=== PATIENT | female | born 1970 | race Hispanic/Latino ===

== ENCOUNTER 2020-08-09 17:11 | Inpatient (IN) | payer OTHER ==
--- NOTE | 2020-08-09 17:21 | Event Note ---
ED Screening Note Date of service: 08/09/20 Time: 17:18 ED Screening Note: Pt c/o CP and SOB x 1 month, suddenly worsening today] hx of CHF and DM-not currently on meds bilateral lower extermity edema noted on exam This initial assessment/diagnostic orders/clinical plan/treatment(s) is/are sub ject to change based on patients health status, clinical progression and re- assessment by fellow clinical providers in the ED. Further treatment and workup at subsequent clinical providers discretion. Patient/guardian urged not to elope from the ED as their condition may be serious if not clinically assessed and managed. Initial orders include: labs CXR ekg glucose
[2020-08-09 17:56] LABS: Basophils % (Auto) 0.5 % (0.0-1.8); Eosinophils % (Auto) 0.1 % (0.0-4.3); Lymphocytes # (Auto) 1.5 K/mm3 (1.2-5.4); Lymphocytes % (Auto) 18.1 % (13.4-35.0); Mean Corpuscular HGB Conc 30 % (30-34); Mean Corpuscular Volume 78 fl (79-97); Monocytes # (Auto) 0.4 K/mm3 (0.0-0.8); Monocytes % (Auto) 4.4 % (0.0-7.3); Platelet Count 428 K/mm3 (140-440); Red Blood Count 4.93 M/mm3 (3.65-5.03); Red Cell Distribution Width 19.4 % (13.2-15.2)
[2020-08-09 18:03] LABS: Hemoglobin 11.5 gm/dl (10.1-14.3)
[2020-08-09 18:04] LABS: Hematocrit 38.5 % (30.3-42.9)
[2020-08-09 18:17] LABS: Blood Urea Nitrogen 8 mg/dL (7-17); Calcium 8.4 mg/dL (8.4-10.2); Hemolysis Index 6
[2020-08-09 18:18] LABS: BUN/Creatinine Ratio 20
[2020-08-09 18:19] LABS: Albumin 3.3 g/dL (3.9-5); Bilirubin,Direct 1.3 mg/dL (0-0.2)
[2020-08-09 18:35] LABS: Chol/HDL Ratio 2.07 %; HDL Cholesterol 91 mg/dL (40-59); LDL Cholesterol,Direct 104 mg/dL (50-130)
--- NOTE | 2020-08-09 19:01 | XRay Report ---
CHEST 2 VIEWS INDICATION / CLINICAL INFORMATION: chest pain, SOB. COMPARISON: 10/24/2015 FINDINGS: SUPPORT DEVICES: None. HEART / MEDIASTINUM: No significant abnormality. LUNGS / PLEURA: There is airspace opacity noted in the lung bases right greater than left. There are bilateral pleural effusions right greater than left. No pneumothorax. ADDITIONAL FINDINGS: No significant additional findings. IMPRESSION: 1. There are bilateral pleural effusions right greater than left. There are airspace opacities in the lung bases which likely represents atelectasis in setting of effusions. Signer Name: Diomedes Laura MD Signed: 08/09/2020 6:56 PM Workstation Name: [id number]
--- NOTE | 2020-08-09 20:53 | Emergency Department Report ---
ED Chest Pain HPI - General Chief Complaint: Chest Pain Stated Complaint: CHEST PAIN/COUGHING PUI?: No Time Seen by Provider: 08/09/20 20:44 Source: patient, RN/MD, RN notes reviewed Mode of arrival: Ambulatory Limitations: No Limitations - History of Present Illness Initial Comments: Patient is a 50-year-old female that presents emergency room with complaints of chest pain or shortness of breath. Patient states her symptoms started yesterday at noon. Patient states her symptoms are worsening. Patient states her pain is nonradiating. Patient denies nausea vomiting. Patient states that her shortness of breath and chest pain are better with rest. Patient states that her chest pain or shortness of breath are worse with exertion. Patient complains of dyspnea on exertion. Patient states she has a history of congestiv e heart rate, diabetes hypertension. Patient states she is always retaining fluids. Patient states she is compliant with her medications. Patient denies recent travel. Patient denies recent international travel. Patient denies exposure to the novel coronavirus. Patient denies sick contacts. Patient denies fever and chills. Patient denies cough. Patient denies diarrhea. Patient denies coming in contact with anybody with symptoms of the novel coronavirus. Complaint: chest pain -: Sudden, days(s) Onset: during rest Pain Location: substernal, left chest Pain Radiation: none Severity: severe Severity scale (0 -10): 10 Quality: sharp Consistency: constant Improves With: rest Worsens With: exertion re: dyspnea, sense of impending doom. denies: nausea, vomting, diaphoresis Other Symptoms: leg swelling. denies: cough, fever, syncope, rash, acid taste in mouth, palpitations, burping Treatments Prior to Arrival: aspirin Aspirin use within the Past 7 Days: (1) Yes - Related Data On Oral Contraceptives: No Previous Rx's Medication Instructions Recorded Last Taken Type Aspirin [Aspirin BABY CHEW TAB] 81 mg PO QDAY #30 tab.chew 10/24/15 Unknown Rx Insulin Glargine [Lantus VIAL] 10 units SUB-Q QHS #10 ml 10/24/15 Unknown Rx Insulin Glulisine [Apidra] 6 units SUB-Q AC #10 ml 10/24/15 Unknown Rx Nitroglycerin [Nitrostat] 0.4 mg SL .Q5MIN PRN #30 tablet 10/24/15 Unknown Rx Spironolactone [Aldactone] 50 mg PO QDAY #30 tablet 10/24/15 Unknown Rx Warfarin [Coumadin] 10 mg PO DAILY@1700 #10 tablet 10/24/15 Unknown Rx carvediloL [Coreg] 3.125 mg PO BID #60 tablet 10/24/15 Unknown Rx clonazePAM [KlonoPIN] 0.25 mg PO TID #30 tablet 10/24/15 Unknown Rx lisinopriL [Zestril TAB] 2.5 mg PO QDAY #30 tablet 10/24/15 Unknown Rx metOLazone [Zaroxolyn] 5 mg PO QDAY #30 tablet 10/24/15 Unknown Rx traZODone [Desyrel] 50 mg PO QHS #30 tablet 10/24/15 Unknown Rx Allergies Allergy/AdvReac Type Severity Reaction Status Date / Time zolpidem [From Ambien] Allergy Unknown Verified 08/09/20 17:15 Heart Score - HEART Score History: Highly suspicious EKG: Non-specific Age: 45-65 Risk factors: > 3 risk factors or hx of atherosclerotic disease Troponin: > 3x normal limit HEART Score: 8 ED Review of Systems ROS: Stated complaint: CHEST PAIN/COUGHING Other details as noted in HPI Constitutional: denies: chills, fever Eyes: denies: eye pain, eye discharge, vision change ENT: denies: ear pain, throat pain Respiratory: see HPI, shortness of breath, SOB with exertion, SOB at rest. denies: cough, wheezing Cardiovascular: as per HPI, chest pain, dyspnea on exertion. denies: palpitations Endocrine: no symptoms reported Gastrointestinal: denies: abdominal pain, nausea, diarrhea Genitourinary: denies: urgency, dysuria, discharge Musculoskeletal: denies: back pain, joint swelling, arthralgia Skin: denies: rash, lesions Neurological: denies: headache, weakness, paresthesias Psychiatric: denies: anxiety, depression Hematological/Lymphatic: denies: easy bleeding, easy bruising ED Past Medical Hx - Past Medical History Previous Medical History?: Yes Hx Hypertension: Yes Hx Congestive Heart Failure: Yes Hx Diabetes: Yes - Surgical History Past Surgical History?: Yes Additional Surgical History: - Family History Family history: no significant - Social History Smoking Status: Never Smoker Substance Use Type: None - Medications Home Medications: Home Medications Medication Instructions Recorded Confirmed Last Taken Type Aspirin [Aspirin BABY CHEW TAB] 81 mg PO QDAY #30 tab.chew 10/24/15 Unknown Rx Insulin Glargine [Lantus VIAL] 10 units SUB-Q QHS #10 ml 10/24/15 Unknown Rx Insulin Glulisine [Apidra] 6 units SUB-Q AC #10 ml 10/24/15 Unknown Rx Nitroglycerin [Nitrostat] 0.4 mg SL .Q5MIN PRN #30 tablet 10/24/15 Unknown Rx Spironolactone [Aldactone] 50 mg PO QDAY #30 tablet 10/24/15 Unknown Rx Warfarin [Coumadin] 10 mg PO DAILY@1700 #10 tablet 10/24/15 Unknown Rx carvediloL [Coreg] 3.125 mg PO BID #60 tablet 10/24/15 Unknown Rx clonazePAM [KlonoPIN] 0.25 mg PO TID #30 tablet 10/24/15 Unknown Rx lisinopriL [Zestril TAB] 2.5 mg PO QDAY #30 tablet 10/24/15 Unknown Rx metOLazone [Zaroxolyn] 5 mg PO QDAY #30 tablet 10/24/15 Unknown Rx traZODone [Desyrel] 50 mg PO QHS #30 tablet 10/24/15 Unknown Rx ED Physical Exam - General Limitations: No Limitations General appearance: alert, in no apparent distress - Head Head exam: Present: atraumatic, normocephalic - Eye Eye exam: Present: normal appearance - ENT ENT exam: Present: mucous membranes moist - Neck Neck exam: Present: normal inspection - Respiratory Respiratory exam: Present: respiratory distress, decreased breath sounds. Absent: chest wall tenderness - Cardiovascular Cardiovascular Exam: Present: regular rate, normal rhythm. Absent: systolic murmur, diastolic murmur, rubs, gallop - GI/Abdominal GI/Abdominal exam: Present: soft, normal bowel sounds - Extremities Exam Extremities exam: Present: normal inspection - Back Exam Back exam: Present: normal inspection - Neurological Exam Neurological exam: Present: alert, oriented X3 - Psychiatric Psychiatric exam: Present: normal affect, normal mood - Skin Skin exam: Present: warm, dry, intact, normal color. Absent: rash ED Course Vital Signs 03/10/21 03/10/21 03/10/21 17:27 21:17 21:20 Temperature 98.9 F Pulse Rate 118 H 116 H Respiratory 24 15 21 Rate Blood Pressure 155/118 O2 Sat by Pulse 99 100 Oximetry 08/09/20 08/09/20 08/09/20 21:31 22:01 22:45 Temperature Pulse Rate 112 H 112 H 126 H Respiratory 15 18 40 H Rate Blood Pressure 155/112 150/110 151/109 O2 Sat by Pulse 100 99 99 Oximetry 08/09/20 08/09/20 08/09/20 23:01 23:15 23:31 Temperature Pulse Rate 113 H 111 H 109 H Respiratory 19 19 19 Rate Blood Pressure 149/112 149/109 149/108 O2 Sat by Pulse 98 99 99 Oximetry 08/09/20 08/09/20 08/10/20 23:45 23:59 00:01 Temperature Pulse Rate 119 H 113 H 111 H Respiratory 17 15 17 Rate Blood Pressure 160/114 148/107 148/107 O2 Sat by Pulse 98 100 100 Oximetry 08/10/20 08/10/20 00:15 00:31 Temperature Pulse Rate 107 H 113 H Respiratory 15 17 Rate Blood Pressure 152/111 147/106 O2 Sat by Pulse 100 99 Oximetry - Reevaluation(s) Reevaluation #1: Patient valuation done. Patient is having increased work of breathing. Patient was placed on oxygen. Patient's troponins are elevated. Patient will placed on a heparin protocol. 08/09/20 20:55 Reevaluation #2: I discussed all results with patient. I discussed plan of care with patient. Patient agrees with plan of care and admission. Patient to be admitted to the hospitalist service. 08/09/20 22:02 - Consultations Consultation #1: Hospitalist consulted for admission. Hospitalist to admit patient. 08/09/20 21:50 ED Medical Decision Making - Lab Data Result diagrams: 08/09/20 17:28 08/09/20 17:28 - EKG Data -: EKG Interpreted by Me EKG shows normal: sinus rhythm, axis, intervals, QRS complexes, ST-T waves Rate: tachycardia - Radiology Data Radiology results: report reviewed, image reviewed interpreted by me: Chest x-ray: CHF changes and effusions, no pneumothorax, no foreign body, no osseous findings, CHEST 2 VIEWS INDICATION / CLINICAL INFORMATION: chest pain, SOB. COMPARISON: 10/24/2015 FINDINGS: SUPPORT DEVICES: None. HEART / MEDIASTINUM: No significant abnormality. LUNGS / PLEURA: There is airspace opacity noted in the lung bases right greater than left. There are bilateral pleural effusions right greater than left. No pneumothorax. ADDITIONAL FINDINGS: No significant additional findings. IMPRESSION: 1. There are bilateral pleural effusions right greater than left. There are airspace opacities in the lung bases which likely represents atelectasis in setting of effusions. - Medical Decision Making Patient is a 50-year-old female that presents emergency room with complaints of chest pain shortness of breath. Patient has a history of CHF, diabetes and hypertension. Patient's heart score is elevated. Patient found to have elevated troponin. Immediately after initial valuation, the patient was placed on a heparin protocol to include heparin bolus and heparin drip. Patient also found to have an elevated BNP and the patient was given IV Lasix. Patient's chest x-ray shows CHF changes. Patient had labs which were essentially unremarkable except for abnormal LFTs. Patient also complained of lower extremity swelling and anasarca. Patient EKG was negative for acute findings. I personally reviewed the EKG and the chest x-ray. Patient admitted to the hospitalist service and into the ICU. Critical care time documented due to the multiple reassessments, prolonged time at the bedside, interpretation of diagnostics and labs. - Differential Diagnosis Chest pain, shortness of breath, ACS, NSTEMI, CHF exacerbation Critical Care Time: Yes Critical care time in (mins) excluding proc time.: 35 Critical care attestation.: If time is entered above; I have spent that time in minutes in the direct care of this critically ill patient, excluding procedure time. Critical Care Time: 35 minutes ED Disposition Clinical Impression: NSTEMI (non-ST elevated myocardial infarction), Elevated troponin I level, Elevated brain natriuretic peptide (BNP) level, SOB (shortness of breath), Anasarca CHF (congestive heart failure) Qualifiers: Heart failure type: unspecified Heart failure chronicity: acute on chronic Qualified Code(s): I50.9 - Heart failure, unspecified Chest pain Qualifiers: Chest pain type: unspecified Qualified Code(s): R07.9 - Chest pain, unspecified Disposition: DC-09 OP ADMIT IP TO THIS HOSP Is pt being admited?: Yes Does the pt Need Aspirin: No Condition: Critical Time of Disposition: 22:05
[2020-08-09] MEDS ORDERED: HEPARIN 10,000 UNITS/10 ML VIAL IV ONE (21:08)
[2020-08-09 21:30] LABS: INR 1.14 (0.87-1.13)
[2020-08-09 21:31] LABS: Partial Thromboplastin Time 27.4 Sec. (24.2-36.6)
[2020-08-09] MEDS ORDERED: ASPIRIN 325 MG TAB PO ONE (21:36)
[2020-08-09] MEDS ORDERED: FUROSEMIDE 100 MG/10 ML INJ IV ONE (21:49)
[2020-08-09] MEDS: HEPARIN/ 0.45% NACL DRIP 25,000 UNIT/500 ML BAG IV SCH (21:50)
[2020-08-09 21:56] LABS: Bilirubin,Urine NEG (Negative); Blood,Urine NEG (Negative); Color,Urine Yellow (Yellow)
[2020-08-10] MEDS ORDERED: MAGNESIUM HYDROXIDE (MOM) ORAL LIQD UDC PO PRN (00:43)
[2020-08-10] MEDS ORDERED: ONDANSETRON 4 MG/2 ML INJ IV PRN (00:43)
[2020-08-10] MEDS ORDERED: NITROGLYCERIN 0.4 MG TAB SUBL SL PRN (00:43)
[2020-08-10] MEDS ORDERED: ACETAMINOPHEN 325 MG TAB PO PRN ×2 (00:43)
[2020-08-10] MEDS ORDERED: DEXTROSE 50% IN WATER (25GM) 50 ML SYRINGE IV PRN (00:43)
--- NOTE | 2020-08-10 00:58 | History and Physical Report ---
History of Present Illness Date of examination: 08/09/20 Date of admission: 08/09/20 22:02 Chief complaint: Chest Pain History of present illness: 50-year-old female with known history of hypertension, diabetes mellitus and CHF presenting to the emergency room today complaining of chest pain and shortness of breath. Symptoms onset started sometime this afternoon and seems to be getting worse. Chest pain is nonradiating. Symptoms are better with resting gets worse upon exertion. She denies any cough, no fever or chills, no nausea vomiting, no abdominal pain, no diarrhea. Patient denies any recent travel and no sick contacts. Denies any contact with anyone with COVID-19. Work-up in the emergency room today, chest x-ray shows pleural effusion. Troponin slightly elevated. Patient is being admitted for NSTEMI and CHF. Past History Past Medical History: diabetes, heart failure, hypertension Past Surgical History: Social history: no significant social history Family history: CAD (Family history of heart disease) Medications and Allergies Allergies Allergy/AdvReac Type Severity Reaction Status Date / Time zolpidem [From Ambien] Allergy Unknown Verified 08/09/20 17:15 Home Medications Medication Instructions Recorded Confirmed Last Taken Type Aspirin [Aspirin BABY CHEW TAB] 81 mg PO QDAY #30 tab.chew 10/24/15 Unknown Rx Insulin Glargine [Lantus VIAL] 10 units SUB-Q QHS #10 ml 10/24/15 Unknown Rx Insulin Glulisine [Apidra] 6 units SUB-Q AC #10 ml 10/24/15 Unknown Rx Nitroglycerin [Nitrostat] 0.4 mg SL .Q5MIN PRN #30 tablet 10/24/15 Unknown Rx Spironolactone [Aldactone] 50 mg PO QDAY #30 tablet 10/24/15 Unknown Rx Warfarin [Coumadin] 10 mg PO DAILY@1700 #10 tablet 10/24/15 Unknown Rx carvediloL [Coreg] 3.125 mg PO BID #60 tablet 10/24/15 Unknown Rx clonazePAM [KlonoPIN] 0.25 mg PO TID #30 tablet 10/24/15 Unknown Rx lisinopriL [Zestril TAB] 2.5 mg PO QDAY #30 tablet 10/24/15 Unknown Rx metOLazone [Zaroxolyn] 5 mg PO QDAY #30 tablet 10/24/15 Unknown Rx traZODone [Desyrel] 50 mg PO QHS #30 tablet 10/24/15 Unknown Rx Active Meds: Active Medications Acetaminophen (Acetaminophen 325 Mg Tab) 650 mg PO Q4H PRN PRN Reason: Pain MILD(1-3)/Fever >100.5/[place] Acetaminophen (Acetaminophen 325 Mg Tab) 650 mg PO Q6H PRN PRN Reason: Pain, Mild (1-3) Aspirin (Aspirin Ec 325 Mg Tab) 325 mg PO QDAY FESTUS Dextrose (Dextrose 50% In Water (25gm) 50 Ml Syringe) 50 ml IV Q30MIN PRN; Protocol PRN Reason: Hypoglycemia Dextrose (Dextrose 50% In Water (25gm) 50 Ml Syringe) 50 ml IV Q30MIN PRN; Protocol PRN Reason: Hypoglycemia Furosemide (Furosemide 40 Mg/4 Ml Inj) 40 mg IV BID@0600,1800 [facility] Heparin Sodium/Sodium Chloride (Heparin/ 0.45% Nacl-25,000 Unit/500 Ml) 25,000 unit in 500 mls @ 20 mls/hr IV TITRATE FESTUS; Protocol Last Admin: 08/09/20 21:50 Dose: 1,000 units/hr, 20 mls/hr Documented by: Insulin Human Lispro (Insulin Lispro 100 Unit/Ml) 0 unit SUB-Q ACHS FESTUS; Protocol Magnesium Hydroxide (Magnesium Hydroxide (Mom) Oral Liqd Udc) 30 ml PO Q4H PRN PRN Reason: Constipation Morphine Sulfate (Morphine 4 Mg/1 Ml Inj) 2 mg IV Q5MIN PRN PRN Reason: Chest Pain Nitroglycerin (Nitroglycerin 0.4 Mg Tab Subl) 0.4 mg SL Q5M PRN PRN Reason: Chest Pain Ondansetron HCl (Ondansetron 4 Mg/2 Ml Inj) 4 mg IV Q8H PRN PRN Reason: Nausea And Vomiting Sodium Chloride (Sodium Chloride 0.9% 10 Ml Flush Syringe) 10 ml IV BID FESTUS Sodium Chloride (Sodium Chloride 0.9% 10 Ml Flush Syringe) 10 ml IV PRN PRN PRN Reason: LINE FLUSH Sodium Chloride (Sodium Chloride 0.9% 10 Ml Flush Syringe) 10 ml IV PRN PRN PRN Reason: LINE FLUSH Review of Systems Constitutional: no fever, no chills, no fatigue Ears, nose, mouth and throat: no nasal congestion, no sore throat Cardiovascular: chest pain, no orthopnea, no palpitations Respiratory: shortness of breath, no cough Gastrointestinal: no abdominal pain, no nausea, no vomiting, no diarrhea Genitourinary Female: no flank pain, no dysuria, no hematuria Musculoskeletal: no neck pain, no low back pain Integumentary: no rash, no pruritis Neurological: no headaches, no confusion Psychiatric: no anxiety, no depression Endocrine: no polyphagia, no polydipsia, no polyuria Exam - Constitutional Vitals: Temp Pulse Resp BP Pulse Ox 98.9 F 119 H 17 160/114 98 08/09/20 17:27 08/09/20 23:45 08/09/20 23:45 08/09/20 23:45 08/09/20 23:45 General appearance: Present: no acute distress, well-nourished - EENT Eyes: Present: PERRL, EOM intact. Absent: scleral icterus ENT: hearing intact, clear oral mucosa, dentition normal - Neck Neck: Present: supple, normal ROM - Respiratory Respiratory effort: normal Respiratory: bilateral: diminished - Cardiovascular Rhythm: regular Heart Sounds: Present: S1 & S2. Absent: gallop, systolic murmur, diastolic murmur, rub, click - Extremities Extremities: no ischemia, pulses intact, pulses symmetrical, normal temperature, normal color, Full ROM Extremity abnormal: edema (2-3+ bilateral lower extremity edema) Peripheral Pulses: within normal limits - Abdominal General gastrointestinal: Present: soft, non-tender, non-distended, normal bowel sounds. Absent: mass - Integumentary Integumentary: Present: clear, warm, dry. Absent: rash - Musculoskeletal Musculoskeletal: strength equal bilaterally - Psychiatric Psychiatric: appropriate mood/affect, intact judgment & insight, memory intact, cooperative - Neurologic Neurologic: CNII-XII intact, no focal deficits, moves all extremities HEART Score - HEART Score History: Slightly suspicious EKG: Non-specific Age: 45-65 Risk factors: > 3 risk factors or hx of atherosclerotic disease Troponin: Troponin T 0.044 ng/mL (0.00-0.029) H 08/09/20 20:12 Troponin: > 3x normal limit HEART Score: 6 Results - Labs CBC & Chem 7: 08/09/20 17:28 08/09/20 17:28 Labs: Abnormal lab results 08/09/20 08/09/20 08/09/20 Range/Units 17:24 17:28 17:28 MCV 78 L (79-97) fl MCH 23 L (28-32) pg RDW 19.4 H (13.2-15.2) % Seg Neutrophils % 76.9 H (40.0-70.0) % INR (0.87-1.13) Sodium 128 L (137-145) mmol/L Chloride 94.1 L (98-107) mmol/L Carbon Dioxide 16 L (22-30) mmol/L Creatinine 0.4 L (0.6-1.2) mg/dL Glucose 377 H (65-100) mg/dL POC Glucose 329 H (70-105) mg/dL Total Bilirubin (0.1-1.2) mg/dL Direct Bilirubin (0-0.2) mg/dL AST (5-40) units/L ALT (7-56) units/L Alkaline Phosphatase (35-129) units/L Troponin T 0.037 H (0.00-0.029) ng/mL NT-Pro-B Natriuret Pep (0-450) pg/mL Total Protein (6.3-8.2) g/dL Albumin (3.9-5) g/dL HDL Cholesterol 91 H (40-59) mg/dL Ur Specific [place] (1.003-1.030) 08/09/20 08/09/20 08/09/20 Range/Units 17:28 20:12 21:12 MCV (79-97) fl MCH (28-32) pg RDW (13.2-15.2) % Seg Neutrophils % (40.0-70.0) % INR 1.14 H (0.87-1.13) Sodium (137-145) mmol/L Chloride (98-107) mmol/L Carbon Dioxide (22-30) mmol/L Creatinine (0.6-1.2) mg/dL Glucose (65-100) mg/dL POC Glucose (70-105) mg/dL Total Bilirubin 2.40 H (0.1-1.2) mg/dL Direct Bilirubin 1.3 H (0-0.2) mg/dL AST 66 H (5-40) units/L ALT 71 H (7-56) units/L Alkaline Phosphatase 888 H (35-129) units/L Troponin T 0.044 H (0.00-0.029) ng/mL NT-Pro-B Natriuret Pep 1579 H (0-450) pg/mL Total Protein 6.2 L (6.3-8.2) g/dL Albumin 3.3 L (3.9-5) g/dL HDL Cholesterol (40-59) mg/dL Ur Specific [place] (1.003-1.030) 08/09/20 Range/Units Unknown MCV (79-97) fl MCH (28-32) pg RDW (13.2-15.2) % Seg Neutrophils % (40.0-70.0) % INR (0.87-1.13) Sodium (137-145) mmol/L Chloride (98-107) mmol/L Carbon Dioxide (22-30) mmol/L Creatinine (0.6-1.2) mg/dL Glucose (65-100) mg/dL POC Glucose (70-105) mg/dL Total Bilirubin (0.1-1.2) mg/dL Direct Bilirubin (0-0.2) mg/dL AST (5-40) units/L ALT (7-56) units/L Alkaline Phosphatase (35-129) units/L Troponin T (0.00-0.029) ng/mL NT-Pro-B Natriuret Pep (0-450) pg/mL Total Protein (6.3-8.2) g/dL Albumin (3.9-5) g/dL HDL Cholesterol (40-59) mg/dL Ur Specific [place] 1.040 H (1.003-1.030) Assessment and Plan - Patient Problems (1) NSTEMI (non-ST elevated myocardial infarction) Current Visit: Yes Status: Acute Plan to address problem: We will trend serial cardiac enzymes. Patient placed on daily aspirin, sublingual nitroglycerin as needed for chest pain. She has been started on heparin drip. Consult placed to cardiology for evaluation. (2) CHF (congestive heart failure) Current Visit: Yes Status: Acute Qualifiers: Heart failure type: unspecified Heart failure chronicity: acute on chronic Qualified Code(s): I50.9 - Heart failure, unspecified Plan to address problem: We will monitor daily weights, inputs and outputs will be closely monitored. Patient will be scheduled for echocardiogram. (3) Diabetes mellitus Current Visit: Yes Status: Acute Plan to address problem: Patient placed on sliding scale insulin. Will monitor Accu-Cheks closely. (4) DVT prophylaxis Current Visit: Yes Status: Acute Plan to address problem: Patient currently on anticoagulation. (5) Full code status Current Visit: Yes Status: Acute Plan to address problem: Patient is full code.
[2020-08-10] MEDS ORDERED: diphenhydrAMINE 50 MG/ML VIAL IV ONE (01:24)
[2020-08-10] MEDS: FUROSEMIDE 40 MG/4 ML INJ IV SCH ×2 (06:15→17:47)
[2020-08-10] MEDS: INSULIN LISPRO 100 UNIT/ML SUB-Q SCH ×6 (07:59→21:53)
[2020-08-10] MEDS: MORPHINE 4 MG/1 ML INJ IV PRN ×2 (07:59→23:31)
--- NOTE | 2020-08-10 09:56 | Progress Note ---
Assessment and Plan Assessment and plan: (1) NSTEMI (non-ST elevated myocardial infarction) Current Visit: Yes Status: Acute Plan to address problem: We will trend serial cardiac enzymes. Patient placed on daily aspirin, sublingual nitroglycerin as needed for chest pain. She has been started on heparin drip. Consult placed to cardiology for evaluation. (2) CHF (congestive heart failure) Current Visit: Yes Status: Acute Qualifiers: Heart failure type: unspecified Heart failure chronicity: acute on chronic Qualified Code(s): I50.9 - Heart failure, unspecified Plan to address problem: We will monitor daily weights, inputs and outputs will be closely monitored. Patient will be scheduled for echocardiogram. (3) Diabetes mellitus Current Visit: Yes Status: Acute Plan to address problem: Patient placed on sliding scale insulin. Will monitor Accu-Cheks closely. (4) DVT prophylaxis Current Visit: Yes Status: Acute Plan to address problem: Patient currently on anticoagulation. (5) Full code status Current Visit: Yes Status: Acute Plan to address problem: Patient is full code. 08/10/2020 -Patient is admitted for the management of non-STEMI and CHF. Patient is on heparin drip, aspirin, IV Lasix. Monitor in and out. Cardiology is following the patient. Diabetes mellitus with hyperglycemia; blood glucose was above 400 and I started the patient on long-acting insulin, Humalog AC and sliding scale insulin, will follow hemoglobin A1c level. -Continue inpatient care History Interval history: Patient was seen and evaluated this morning Patient's complaint chest pain, 5 out of 10 intensity Has also shortness of breath intermittently Patient is saturating 96% on room air Hospitalist Physical - Physical exam Narrative exam: Not in cardiopulmonary distress. The patient appeared well nourished and normally developed. Vital signs as documented. Head exam is unremarkable. No scleral icterus . Neck is without jugular venous distension, thyromegaly, or carotid bruits. Lungs are clear to auscultation. Cardiac exam reveals regular rate and Rhythm. Tachycardic Abdominal exam reveals normal bowel sounds, nontender, no organomegaly. Extremities are nonedematous and both femoral and pedal pulses are normal. [employer]: Alert and oriented 3. No focal weakness. - Constitutional Vitals: Temp Pulse Resp BP Pulse Ox 98.9 F 114 H 17 151/111 97 08/09/20 17:27 08/10/20 09:00 03/11/21 09:00 08/10/20 09:00 08/10/20 09:00 General appearance: Present: no acute distress, well-nourished HEART Score - HEART Score EKG: Non-specific Age: 45-65 Risk factors: > 3 risk factors or hx of atherosclerotic disease Troponin: Troponin T 0.056 ng/mL (0.00-0.029) H 08/10/20 07:39 Troponin: > 3x normal limit Results - Labs CBC & Chem 7: 08/09/20 17:28 08/09/20 17: Labs: Laboratory Last Values WBC 8.2 K/mm3 (4.5-11.0) 08/09/20: RBC 4.93 M/mm3 (3.65-5.03) 08/09/20: Hgb 11.5 gm/dl (10.1-14.3) 08/09/20: Hct 38.5 % (30.3-42.9) 08/09/20: MCV 78 fl (79-97) L 08/09/20: MCH 23 pg (28-32) L 08/09/20: MCHC 30 % (30-34) 08/09/20: RDW 19.4 % (13.2-15.2) H 08/09/20: Plt Count 428 K/mm3 (140-440) 08/09/20: Lymph % (Auto) 18.1 % (13.4-35.0) 08/09/20: [place] % (Auto) 4.4 % (0.0-7.3) 08/09/20: Eos % (Auto) 0.1 % (0.0-4.3) 08/09/20: Baso % (Auto) 0.5 % (0.0-1.8) 08/09/20: Lymph # (Auto) 1.5 K/mm3 (1.2-5.4) 08/09/20: [place] # (Auto) 0.4 K/mm3 (0.0-0.8) 08/09/20: Eos # (Auto) 0.0 K/mm3 (0.0-0.4) 08/09/20 17:28 Baso # (Auto) 0.0 K/mm3 (0.0-0.1) 08/09/20 17:28 Seg Neutrophils % 76.9 % (40.0-70.0) H 08/09/20 17:28 Seg Neutrophils # 6.3 K/mm3 (1.8-7.7) 08/09/20 17:28 PT 14.4 Sec. (12.2-14.9) 08/09/20 21:12 INR 1.14 (0.87-1.13) H 08/09/20 21:12 APTT 27.4 Sec. (24.2-36.6) 08/09/20 21:12 Heparin Anti-Xa Level 0.73 U.I./ml (0.3-0.7) H 08/10/20 04:24 Sodium 128 mmol/L (137-145) L 08/09/20 17:28 Potassium 3.7 mmol/L (3.6-5.0) 08/09/20 17:28 Chloride 94.1 mmol/L (98-107) L 08/09/20 17:28 Carbon Dioxide 16 mmol/L (22-30) L 08/09/20 17:28 Anion Gap 22 mmol/L 08/09/20 17:28 BUN 8 mg/dL (7-17) 08/09/20 17:28 Creatinine 0.4 mg/dL (0.6-1.2) L 08/09/20 17:28 Estimated GFR > 60 ml/min 08/09/20 17:28 BUN/Creatinine Ratio 20 % 08/09/20 17:28 Glucose 377 mg/dL (65-100) H 08/09/20 17:28 POC Glucose 389 mg/dL (70-105) H 08/10/20 07:36 Calcium 8.4 mg/dL (8.4-10.2) 08/09/20 17:28 Total Bilirubin 2.40 mg/dL (0.1-1.2) H 08/09/20 17:28 Direct Bilirubin 1.3 mg/dL (0-0.2) H 08/09/20 17:28 Indirect Bilirubin 1.1 mg/dL 08/09/20 17:28 AST 66 units/L (5-40) H 08/09/20 17:28 ALT 71 units/L (7-56) H 08/09/20 17:28 Alkaline Phosphatase 888 units/L (35-129) H 08/09/20 17:28 Troponin T 0.056 ng/mL (0.00-0.029) H 08/10/20 07:39 NT-Pro-B Natriuret Pep 1579 pg/mL (0-450) H 08/09/20 17:28 Total Protein 6.2 g/dL (6.3-8.2) L 08/09/20 17:28 Albumin 3.3 g/dL (3.9-5) L 08/09/20 17:28 Albumin/Globulin Ratio 1.1 % 08/09/20 17:28 Triglycerides 79 mg/dL (2-149) 08/09/20 17:28 Cholesterol 189 mg/dL (50-199) 08/09/20 17:28 LDL Cholesterol Direct 104 mg/dL (50-130) 08/09/20 17:28 HDL Cholesterol 91 mg/dL (40-59) H 08/09/20 17:28 Cholesterol/HDL Ratio 2.07 % 08/09/20 17:28 Lipase 49 units/L (13-60) 08/09/20 17:28 Urine Color Yellow (Yellow) 08/09/20 Unknown Urine Turbidity Clear (Clear) 08/09/20 Unknown Urine pH 6.0 (5.0-7.0) 08/09/20 Unknown Ur Specific [place] 1.040 (1.003-1.030) H 08/09/20 Unknown Urine Protein 100 mg/dl mg/dL (Negative) 08/09/20 Unknown Urine Glucose (UA) >=500 mg/dL (Negative) 08/09/20 Unknown Urine Ketones 20 mg/dL (Negative) 08/09/20 Unknown Urine Blood Neg (Negative) 08/09/20 Unknown Urine Nitrite Neg (Negative) 08/09/20 Unknown Urine Bilirubin Neg (Negative) 08/09/20 Unknown Urine Urobilinogen 2.0 mg/dL (<2.0) 08/09/20 Unknown Ur Leukocyte Esterase Neg (Negative) 08/09/20 Unknown Urine WBC (Auto) 5.0 /HPF (0.0-6.0) 08/09/20 Unknown Urine RBC (Auto) 8.0 /HPF (0.0-6.0) 08/09/20 Unknown U Epithel Cells (Auto) 4.0 /HPF (0-13.0) 08/09/20 Unknown Active Medications - Current Medications Current Medications: Generic Name Dose Route Start Last Admin Trade Name Freq PRN Reason Stop Dose Admin Acetaminophen 650 mg 08/10/20 00:43 Acetaminophen 325 Mg Tab PO Q6H PRN Pain, Mild (1-3) Aspirin 325 mg 08/11/20 10:00 Aspirin Ec 325 Mg Tab PO QDAY FESTUS Dextrose 0 ml 08/10/20 00:43 Dextrose 50% In Water (25gm) 50 Ml Syringe IV Q30MIN PRN Hypoglycemia Protocol Furosemide 40 mg 08/10/20 06:00 08/10/20 06:15 Furosemide 40 Mg/4 Ml Inj IV 40 mg BID@0600,1800 FESTUS Administration Heparin Sodium/Sodium Chloride 25,000 unit in 500 mls @ 20 mls/hr 08/09/20 22:00 08/10/20 06:14 Heparin/ 0.45% Nacl-25,000 Unit/500 Ml IV 950 units/hr TITRATE FESTUS 19 mls/hr Titration Protocol 1,000 UNITS/HR Insulin Human Lispro 0 unit 08/10/20 07:30 08/10/20 07:59 Insulin Lispro 100 Unit/Ml SUB-Q 8 unit ACHS FESTUS Administration Protocol Magnesium Hydroxide 30 ml 08/10/20 00:43 Magnesium Hydroxide (Mom) Oral Liqd Udc PO Q4H PRN Constipation Morphine Sulfate 2 mg 08/10/20 00:43 08/10/20 07:59 Morphine 4 Mg/1 Ml Inj IV 2 mg Q5MIN PRN Administration Chest Pain Nitroglycerin 0.4 mg 08/10/20 00:43 Nitroglycerin 0.4 Mg Tab Subl SL Q5M PRN Chest Pain Ondansetron HCl 4 mg 08/10/20 00:43 Ondansetron 4 Mg/2 Ml Inj IV Q8H PRN Nausea And Vomiting Sodium Chloride 10 ml 08/10/20 10:00 Sodium Chloride 0.9% 10 Ml Flush Syringe IV BID FESTUS Sodium Chloride 10 ml 08/10/20 00:43 Sodium Chloride 0.9% 10 Ml Flush Syringe IV PRN PRN LINE FLUSH
[2020-08-10] MEDS ORDERED: REGADENOSON 0.4 MG/5 ML INJ IV ONE (10:10)
[2020-08-10] MEDS ORDERED: INSULIN GLARGINE 100 UNITS/ML SUB-Q NR (11:20)
[2020-08-10] MEDS ORDERED: ASPIRIN 325 MG TAB PO ONE (11:30)
[2020-08-10] MEDS: METOPROLOL TARTRATE 25 MG TAB PO SCH ×2 (12:26→20:15)
--- NOTE | 2020-08-10 13:08 | Consultation ---
History of Present Illness Consult date: 08/10/20 Requesting physician: CELSO MARCIAL Consult reason: congestive heart failure, elevated troponin History of present illness: This patient is a 50 y/o female with a significant hx of CVA, HFrEF (15/20%), DM, HTN, and noncompliance with medications. She is previously unknown to our practice, however has been seen by [facility] on previous hospitalization at [facility], no regular cardiology out patient f/u. Patient presented to [facility] ER complaining of SOB & CP and BLE swelling x 1 month, acutely worse x 1 day. Chest pain is non-ra diating and worse with exertion. Of note: Patient was seen at [facility] in 2016, evaluated by [facility]. Diagnosed with new onset dilated cardiomyopathy, LV thrombus, Embolic CVA. Pt was initiated on Coumadin during that admission and has been admittedly non compliant with any prescription medications for quite some time due to lack of insurance. Echo (2016) reviewed: EF10-15% with apical thrombus. Left ventricle diastolic filling pattern is restrictive. R vent global systolic function is severely reduced. Moderate to severe MR, TR. Past History Past Medical History: diabetes, heart failure, hypertension Past Surgical History: Social history: no significant social history Family history: CAD (Family history of heart disease) Medications and Allergies Allergies Allergy/AdvReac Type Severity Reaction Status Date / Time zolpidem [From Ambien] Allergy Unknown Verified 08/09/20 17:15 Home Medications Medication Instructions Recorded Confirmed Last Taken Type No Known Home Medications [No 08/10/20 08/10/20 Unknown History Reported Home Medications] Active Meds: Active Medications Acetaminophen (Acetaminophen 325 Mg Tab) 650 mg PO Q6H PRN PRN Reason: Pain, Mild (1-3) Aspirin (Aspirin Ec 325 Mg Tab) 325 mg PO QDAY FESTUS Dextrose (Dextrose 50% In Water (25gm) 50 Ml Syringe) 0 ml IV Q30MIN PRN; Protocol PRN Reason: Hypoglycemia Furosemide (Furosemide 40 Mg/4 Ml Inj) 40 mg IV BID@0600,1800 FESTUS Last Admin: 08/10/20 06:15 Dose: 40 mg Documented by: Heparin Sodium/Sodium Chloride (Heparin/ 0.45% Nacl-25,000 Unit/500 Ml) 25,000 unit in 500 mls @ 20 mls/hr IV TITRATE FESTUS; Protocol Last Titration: 08/10/20 12:16 Dose: 883 units/hr, 17.66 mls/hr Documented by: Insulin Glargine (Insulin Glargine 100 Units/Ml) 20 units SUB-Q ONCE NR Stop: 08/10/20 14:00 Insulin Glargine (Insulin Glargine 100 Units/Ml) 20 units SUB-Q QHS FESTUS Insulin Human Lispro (Insulin Lispro 100 Unit/Ml) 0 unit SUB-Q ACHS [facility]; Protocol Last Admin: 08/10/20 11:35 Dose: 8 unit Documented by: Insulin Human Lispro (Insulin Lispro 100 Unit/Ml) 5 unit SUB-Q AC [facility] Last Admin: 08/10/20 11:35 Dose: 5 unit Documented by: Magnesium Hydroxide (Magnesium Hydroxide (Mom) Oral Liqd Udc) 30 ml PO Q4H PRN PRN Reason: Constipation Metoprolol Tartrate (Metoprolol Tartrate 25 Mg Tab) 25 mg PO TID [facility] Last Admin: 08/10/20 12:26 Dose: 25 mg Documented by: Morphine Sulfate (Morphine 4 Mg/1 Ml Inj) 2 mg IV Q5MIN PRN PRN Reason: Chest Pain Last Admin: 08/10/20 07:59 Dose: 2 mg Documented by: Nitroglycerin (Nitroglycerin 0.4 Mg Tab Subl) 0.4 mg SL Q5M PRN PRN Reason: Chest Pain Ondansetron HCl (Ondansetron 4 Mg/2 Ml Inj) 4 mg IV Q8H PRN PRN Reason: Nausea And Vomiting Sodium Chloride (Sodium Chloride 0.9% 10 Ml Flush Syringe) 10 ml IV BID [facility] Last Admin: 08/10/20 11:12 Dose: 10 ml Documented by: Sodium Chloride (Sodium Chloride 0.9% 10 Ml Flush Syringe) 10 ml IV PRN PRN PRN Reason: LINE FLUSH Review of Systems Constitutional: no weight loss, no weight gain, no fever, no chills, no sweats Ears, nose, mouth and throat: no ear pain, no ear discharge, no decreased h earing, no nose pain, no nasal congestion, no nasal discharge, no sinus pressure Cardiovascular: chest pain, edema, shortness of breath, no orthopnea, no palpitations, no rapid/irregular heart beat, no syncope, no lightheadedness Respiratory: shortness of breath, dyspnea on exertion, no cough, no home oxygen Genitourinary Female: no pelvic pain, no flank pain Musculoskeletal: no neck stiffness, no neck pain, no shooting arm pain, no arm numbness/tingling, no low back pain, no shooting leg pain Integumentary: no rash, no pruritis, no redness, no sores, no wounds Neurological: no head injury, no paralysis, no weakness, no parathesias, no numbness, no tingling, no seizures, no syncope Psychiatric: no anxiety Endocrine: no cold intolerance, no heat intolerance Hematologic/Lymphatic: no easy bruising, no easy bleeding Allergic/Immunologic: no urticaria Physical Examination Last Vital Signs Temp 98.9 F 08/09/20 17:27 Pulse 116 H 08/10/20 12:26 Resp 16 08/10/20 12:00 BP 127/91 08/10/20 12:26 Pulse Ox 99 08/10/20 12:00 General appearance: no acute distress HEENT: Positive: PERRL, Normocephaly, Mucus Membranes Moist Neck: Positive: neck supple, trachea midline, JVD/HJR Cardiac: Positive: S1/S2, Tachycardia Lungs: Positive: clear to auscultation, Normal Breath Sounds Neuro: Positive: Grossly Intact Abdomen: Positive: Unremarkable Skin: Negative: Rash, Wound Musculoskeletal: No Pain Extremities: Present: upper extr. pulses, lower extr. pulses, +2 Edema Results 08/09/20 17:28 08/09/20 17:28 Cardiac Enzymes 08/09/20 Range/Units 17:28 AST 66 H (5-40) units/L Coagulation 08/09/20 Range/Units 21:12 PT 14.4 (12.2-14.9) Sec. INR 1.14 H (0.87-1.13) APTT 27.4 (24.2-36.6) Sec. Lipids 08/09/20 Range/Units 17:28 Triglycerides 79 (2-149) mg/dL Cholesterol 189 (50-199) mg/dL HDL Cholesterol 91 H (40-59) mg/dL Cholesterol/HDL Ratio 2.07 % CBC 08/09/20 Range/Units 17:28 WBC 8.2 (4.5-11.0) K/mm3 RBC 4.93 (3.65-5.03) M/mm3 Hgb 11.5 (10.1-14.3) gm/dl Hct 38.5 (30.3-42.9) % Plt Count 428 (140-440) K/mm3 Lymph # (Auto) 1.5 (1.2-5.4) K/mm3 [place] # (Auto) 0.4 (0.0-0.8) K/mm3 Eos # (Auto) 0.0 (0.0-0.4) K/mm3 Baso # (Auto) 0.0 (0.0-0.1) K/mm3 Comprehensive Metabolic Panel 08/09/20 08/09/20 Range/Units 17:28 17:28 Sodium 128 L (137-145) mmol/L Potassium 3.7 (3.6-5.0) mmol/L Chloride 94.1 L (98-107) mmol/L Carbon Dioxide 16 L (22-30) mmol/L BUN 8 (7-17) mg/dL Creatinine 0.4 L (0.6-1.2) mg/dL Glucose 377 H (65-100) mg/dL Calcium 8.4 (8.4-10.2) mg/dL Direct Bilirubin 1.3 H (0-0.2) mg/dL Indirect Bilirubin 1.1 mg/dL AST 66 H (5-40) units/L ALT 71 H (7-56) units/L Alkaline Phosphatase 888 H (35-129) units/L Total Protein 6.2 L (6.3-8.2) g/dL Albumin 3.3 L (3.9-5) g/dL - Imaging and Cardiology Echo: report reviewed (EF 10-15%, Severe hypokinesis of the left ventricle. Left ventricular medium thrombus present. Moderate MR. Mild MI. Moderate TR.) EKG: report reviewed, image reviewed EKG interpretations - Telemetry EKG Rhythm: Sinus Tachycardia - EKG Sinus rhythms and dysrhythmias: sinus tachycardia Assessment and Plan Cardiology consulted for CP and acute on chronic HFrEF. 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 Echo (08/10/2020) reviewed: EF 10-15%, Severe hypokinesis of the left ventricle. Left ventricular medium thrombus present. Moderate MR. Mild MI. Moderate TR. Continue Heparin drip in setting of LV thrombus and plan for conversion to coumadin prior to hospital discharge. Optimize HR- initiate lopressor. Initiate Lisinopril and titrate as tolerated. Agree with IV diuretics. F/u BMP in AM. Plan for ischemic evaluation for further investigation of cardiomyopathy etiolo gy once medically stabilized- likely friday morning. Of note, pt reports "Every woman in my family has a weak heart." Will follow. This patient was seen in conjunction with Dr Denia Varela who agrees with this assessment and plan of care. - Patient Problems (1) HFrEF (heart failure with reduced ejection fraction) Current Visit: Yes Status: Chronic (2) Dilated cardiomyopathy Current Visit: Yes Status: Acute (3) Left ventricular apical thrombus Current Visit: Yes Status: Chronic (4) Elevated troponin Current Visit: Yes Status: Acute (5) Chest pain Current Visit: Yes Status: Acute Qualifiers: Chest pain type: unspecified Qualified Code(s): R07.9 - Chest pain, unspecified (6) HTN (hypertension) Current Visit: Yes Status: Chronic (7) Uncontrolled diabetes mellitus Current Visit: Yes Status: Chronic (8) History of CVA (cerebrovascular accident) Current Visit: Yes Status: Chronic (9) Hyponatremia Current Visit: Yes Status: Acute (10) Medical non-compliance Current Visit: Yes Status: Chronic (11) Sinus tachycardia Current Visit: Yes Status: Acute
[2020-08-10] MEDS: HEPARIN/ 0.45% NACL DRIP 25,000 UNIT/500 ML BAG IV SCH (21:56)
[2020-08-10] MEDS ORDERED: INSULIN GLARGINE 100 UNITS/ML SUB-Q SCH (22:00)
[2020-08-11 05:42] LABS: Basophils # (Auto) 0.1 K/mm3 (0.0-0.1); Basophils % (Auto) 1.2 % (0.0-1.8); Eosinophils % (Auto) 0.4 % (0.0-4.3); Lymphocytes # (Auto) 2.9 K/mm3 (1.2-5.4); Lymphocytes % (Auto) 28.3 % (13.4-35.0); Mean Corpuscular HGB Conc 31 % (30-34); Mean Corpuscular Volume 78 fl (79-97); Monocytes # (Auto) 1.1 K/mm3 (0.0-0.8); Monocytes % (Auto) 10.8 % (0.0-7.3); Platelet Count 350 K/mm3 (140-440); Red Blood Count 4.97 M/mm3 (3.65-5.03); Red Cell Distribution Width 18.9 % (13.2-15.2)
[2020-08-11 05:46] LABS: INR 1.4 (0.87-1.13)
[2020-08-11 05:54] LABS: BUN/Creatinine Ratio 26; Blood Urea Nitrogen 21 mg/dL (7-17); Calcium 8.7 mg/dL (8.4-10.2); Hemolysis Index 0
[2020-08-11 05:57] LABS: Hematocrit 38.6 % (30.3-42.9); Hemoglobin 11.8 gm/dl (10.1-14.3)
[2020-08-11] MEDS: FUROSEMIDE 40 MG/4 ML INJ IV SCH ×2 (07:22→18:32)
--- NOTE | 2020-08-11 08:20 | Progress Note ---
Assessment and Plan Assessment and plan: (1) NSTEMI (non-ST elevated myocardial infarction) Current Visit: Yes Status: Acute Plan to address problem: We will trend serial cardiac enzymes. Patient placed on daily aspirin, sublingual nitroglycerin as needed for chest pain. She has been started on heparin drip. Consult placed to cardiology for evaluation. (2) CHF (congestive heart failure) Current Visit: Yes Status: Acute Qualifiers: Heart failure type: unspecified Heart failure chronicity: acute on chronic Qualified Code(s): I50.9 - Heart failure, unspecified Plan to address problem: We will monitor daily weights, inputs and outputs will be closely monitored. Patient will be scheduled for echocardiogram. (3) Diabetes mellitus Current Visit: Yes Status: Acute Plan to address problem: Patient placed on sliding scale insulin. Will monitor Accu-Cheks closely. (4) DVT prophylaxis Current Visit: Yes Status: Acute Plan to address problem: Patient currently on anticoagulation. (5) Full code status Current Visit: Yes Status: Acute Plan to address problem: Patient is full code. 08/10/2020 -Patient is admitted for the management of non-STEMI and CHF. Patient is on heparin drip, aspirin, IV Lasix. Monitor in and out. Cardiology is following the patient. Diabetes mellitus with hyperglycemia; blood glucose was above 400 and I started the patient on long-acting insulin, Humalog AC and sliding scale insulin, will follow hemoglobin A1c level. -Continue inpatient care 08/11/20 -Patient had echo showed EF of 10 to 15%, with diastolic dysfunction. Patient had echo in 2015 and had EF of 15 to 20%. Patient started on metoprolol, and lisinopril. Blood pressure is well controlled. Continue with IV Lasix. Cardiology is following and will do ischemic work-up on Friday. Patient's hemoglobin A1c is 15.1, has hyperglycemia, and started on Lantus and sliding scale insulin and AC Humalog. Blood pressure this morning was 64 and I discontinued the AC Humalog, monitor blood sugar and adjust insulin as needed. -Disposition continue inpatient care. History Interval history: Patient was seen and evaluated this morning No complaints today Patient is saturating 96% on room air Hospitalist Physical - Physical exam Narrative exam: Not in cardiopulmonary distress. The patient appeared well nourished and normally developed. Vital signs as documented. Head exam is unremarkable. No scleral icterus . Neck is without jugular venous distension, thyromegaly, or carotid bruits. Lungs are clear to auscultation. Cardiac exam reveals regular rate and Rhythm. Tachycardic Abdominal exam reveals normal bowel sounds, nontender, no organomegaly. Extremities are nonedematous and both femoral and pedal pulses are normal. PEDIATRIC PHYSICIAN ASSISTANT: Alert and oriented 3. No focal weakness. - Constitutional Vitals: Temp Pulse Resp BP Pulse Ox 97.9 F 83 16 115/79 98 08/11/20 04:54 08/11/20 04:54 08/11/20 04:54 08/11/20 04:54 08/11/20 04:54 General appearance: Present: no acute distress HEART Score - HEART Score EKG: Non-specific Age: 45-65 Risk factors: > 3 risk factors or hx of atherosclerotic disease Troponin: Troponin T 0.056 ng/mL (0.00-0.029) H 08/10/20 07:39 Troponin: > 3x normal limit Results - Labs CBC & Chem 7: 08/11/20 05:15 08/11/20 05:15 Labs: Laboratory Last Values WBC 10.2 K/mm3 (4.5-11.0) 08/11/20 05:15 RBC 4.97 M/mm3 (3.65-5.03) 08/11/20 05:15 Hgb 11.8 gm/dl (10.1-14.3) 08/11/20 05:15 Hct 38.6 % (30.3-42.9) 08/11/20 05:15 MCV 78 fl (79-97) L 08/11/20 05:15 MCH 24 pg (28-32) L 08/11/20 05:15 MCHC 31 % (30-34) 08/11/20 05:15 RDW 18.9 % (13.2-15.2) H 08/11/20 05:15 Plt Count 350 K/mm3 (140-440) 08/11/20 05:15 Lymph % (Auto) 28.3 % (13.4-35.0) 08/11/20 05:15 [place] % (Auto) 10.8 % (0.0-7.3) H 08/11/20 05:15 Eos % (Auto) 0.4 % (0.0-4.3) 08/11/20 05:15 Baso % (Auto) 1.2 % (0.0-1.8) 08/11/20 05:15 Lymph # (Auto) 2.9 K/mm3 (1.2-5.4) 08/11/20 05:15 [place] # (Auto) 1.1 K/mm3 (0.0-0.8) H 08/11/20 05:15 Eos # (Auto) 0.0 K/mm3 (0.0-0.4) 08/11/20 05:15 Baso # (Auto) 0.1 K/mm3 (0.0-0.1) 08/11/20 05:15 Seg Neutrophils % 59.3 % (40.0-70.0) 08/11/20 05:15 Seg Neutrophils # 6.0 K/mm3 (1.8-7.7) 08/11/20 05:15 PT 17.1 Sec. (12.2-14.9) H 08/11/20 05:15 INR 1.40 (0.87-1.13) H 08/11/20 05:15 APTT 27.4 Sec. (24.2-36.6) 08/09/20 21:12 Heparin Anti-Xa Level 0.72 U.I./ml (0.3-0.7) H 08/11/20 05:15 Sodium 136 mmol/L (137-145) L D 08/11/20 05:15 Potassium 3.9 mmol/L (3.6-5.0) 08/11/20 05:15 Chloride 96.3 mmol/L (98-107) L 08/11/20 05:15 Carbon Dioxide 26 mmol/L (22-30) D 08/11/20 05:15 Anion Gap 18 mmol/L 08/11/20 05:15 BUN 21 mg/dL (7-17) H 08/11/20 05:15 Creatinine 0.8 mg/dL (0.6-1.2) D 08/11/20 05:15 Estimated GFR > 60 ml/min 08/11/20 05:15 BUN/Creatinine Ratio 26 % 08/11/20 05:15 Glucose 64 mg/dL (65-100) L 08/11/20 05:15 POC Glucose 135 mg/dL (70-105) H 08/10/20 21:52 Hemoglobin A1c 15.1 % (4-6) H 08/10/20 11:38 Calcium 8.7 mg/dL (8.4-10.2) 08/11/20 05:15 Total Bilirubin 2.40 mg/dL (0.1-1.2) H 08/09/20 17:28 Direct Bilirubin 1.3 mg/dL (0-0.2) H 08/09/20 17:28 Indirect Bilirubin 1.1 mg/dL 08/09/20 17:28 AST 66 units/L (5-40) H 08/09/20 17:28 ALT 71 units/L (7-56) H 08/09/20 17:28 Alkaline Phosphatase 888 units/L (35-129) H 08/09/20 17:28 Troponin T 0.056 ng/mL (0.00-0.029) H 08/10/20 07:39 NT-Pro-B Natriuret Pep 1579 pg/mL (0-450) H 08/09/20 17:28 Total Protein 6.2 g/dL (6.3-8.2) L 08/09/20 17:28 Albumin 3.3 g/dL (3.9-5) L 08/09/20 17:28 Albumin/Globulin Ratio 1.1 % 08/09/20 17:28 Triglycerides 79 mg/dL (2-149) 08/09/20 17:28 Cholesterol 189 mg/dL (50-199) 08/09/20 17:28 LDL Cholesterol Direct 104 mg/dL (50-130) 08/09/20 17:28 HDL Cholesterol 91 mg/dL (40-59) H 08/09/20 17:28 Cholesterol/HDL Ratio 2.07 % 08/09/20 17:28 Lipase 49 units/L (13-60) 08/09/20 17:28 Urine Color Yellow (Yellow) 08/09/20 Unknown Urine Turbidity Clear (Clear) 08/09/20 Unknown Urine pH 6.0 (5.0-7.0) 08/09/20 Unknown Ur Specific [place] 1.040 (1.003-1.030) H 08/09/20 Unknown Urine Protein 100 mg/dl mg/dL (Negative) 08/09/20 Unknown Urine Glucose (UA) >=500 mg/dL (Negative) 08/09/20 Unknown Urine Ketones 20 mg/dL (Negative) 08/09/20 Unknown Urine Blood Neg (Negative) 08/09/20 Unknown Urine Nitrite Neg (Negative) 08/09/20 Unknown Urine Bilirubin Neg (Negative) 08/09/20 Unknown Urine Urobilinogen 2.0 mg/dL (<2.0) 08/09/20 Unknown Ur Leukocyte Esterase Neg (Negative) 08/09/20 Unknown Urine WBC (Auto) 5.0 /HPF (0.0-6.0) 08/09/20 Unknown Urine RBC (Auto) 8.0 /HPF (0.0-6.0) 08/09/20 Unknown U Epithel Cells (Auto) 4.0 /HPF (0-13.0) 08/09/20 Unknown Active Medications - Current Medications Current Medications: Generic Name Dose Route Start Last Admin Trade Name Freq PRN Reason Stop Dose Admin Acetaminophen 650 mg 08/10/20 00:43 08/10/20 20:14 Acetaminophen 325 Mg Tab PO 650 mg Q6H PRN Administration Pain, Mild (1-3) Aspirin 81 mg 08/11/20 10:00 Aspirin 81 Mg Tab Chew PO QDAY FESTUS Dextrose 0 ml 08/10/20 00:43 Dextrose 50% In Water (25gm) 50 Ml Syringe IV Q30MIN PRN Hypoglycemia Protocol Furosemide 40 mg 08/10/20 06:00 08/11/20 07:22 Furosemide 40 Mg/4 Ml Inj IV 40 mg BID@0600,1800 FESTUS Administration Heparin Sodium/Sodium Chloride 25,000 unit in 500 mls @ 20 mls/hr 08/09/20 22:00 08/11/20 07:03 Heparin/ 0.45% Nacl-25,000 Unit/500 Ml IV 783 units/hr TITRATE FESTUS 15.66 mls/hr Titration Protocol 1,000 UNITS/HR Insulin Glargine 20 units 08/10/20 22:00 08/10/20 23:41 Insulin Glargine 100 Units/Ml SUB-Q 20 units QHS FESTUS Administration Insulin Human Lispro 0 unit 08/10/20 07:30 08/10/20 21:53 Insulin Lispro 100 Unit/Ml SUB-Q Not Given ACHS [facility] Protocol Lisinopril 5 mg 08/11/20 10:00 Lisinopril 5 Mg Tab PO QDAY FESTUS Magnesium Hydroxide 30 ml 08/10/20 00:43 Magnesium Hydroxide (Mom) Oral Liqd Udc PO Q4H PRN Constipation Metoprolol Tartrate 25 mg 08/10/20 12:00 08/10/20 20:15 Metoprolol Tartrate 25 Mg Tab PO 25 mg TID FESTUS Administration Morphine Sulfate 2 mg 08/10/20 00:43 08/10/20 23:31 Morphine 4 Mg/1 Ml Inj IV 2 mg Q5MIN PRN Administration Chest Pain Nitroglycerin 0.4 mg 08/10/20 00:43 Nitroglycerin 0.4 Mg Tab Subl SL Q5M PRN Chest Pain Ondansetron HCl 4 mg 08/10/20 00:43 08/10/20 23:32 Ondansetron 4 Mg/2 Ml Inj IV 4 mg Q8H PRN Administration Nausea And Vomiting Sodium Chloride 10 ml 08/10/20 10:00 08/10/20 23:32 Sodium Chloride 0.9% 10 Ml Flush Syringe IV 10 ml BID FESTUS Administration Sodium Chloride 10 ml 08/10/20 00:43 Sodium Chloride 0.9% 10 Ml Flush Syringe IV PRN PRN LINE FLUSH Nutrition/Malnutrition Assess - Dietary Evaluation Nutrition/Malnutrition Findings: Nutrition Notes Start: 08/10/20 11:18 Freq: Status: Active Protocol: Document 08/10/20 11:18 AL (Rec: 08/10/20 11:22 AL [id number]) Co-Sign 08/10/20 11:18 LP Nutrition Notes Need for Assessment generated from: MD Order,Education Initial or Follow up Brief Note Current Diagnosis Diabetes,Hypertension,Heart Failure Current Diet Cardiac/Consistent Carb Labs/Tests POC BG 389 3/10 Na 128 Cr .4 Pertinent Medications Lasix 40 mg BID Humalog Subjective/Other Information MD consult for diet education. Cannot give diet education d/ t pt on hold in ED. Nutrition Intervention Follow-Up By: 08/11/20 Additional Comments F/U for CHF & Carb Counting nutrition recommendations
[2020-08-11] MEDS: INSULIN LISPRO 100 UNIT/ML SUB-Q SCH ×4 (08:33→18:28)
[2020-08-11] MEDS: METOPROLOL TARTRATE 25 MG TAB PO SCH (09:03)
[2020-08-11] MEDS: ASPIRIN 81 MG TAB CHEW PO SCH (09:04)
[2020-08-11] MEDS: LISINOPRIL 5 MG TAB PO SCH (09:04)
[2020-08-11] MEDS ORDERED: ASPIRIN EC 325 MG TAB PO SCH (10:00)
[2020-08-11] MEDS: DEXTROSE 50% IN WATER (25GM) 50 ML SYRINGE IV PRN ×3 (12:05→19:32)
--- NOTE | 2020-08-11 13:14 | Consultation ---
History of Present Illness Consult date: 08/11/20 Past History Past Medical History: diabetes, heart failure, hypertension Past Surgical History: Social history: no significant social history Family history: CAD (Family history of heart disease) Medications and Allergies Allergies Allergy/AdvReac Type Severity Reaction Status Date / Time zolpidem [From Ambien] Allergy Unknown Verified 08/09/20 17:15 Home Medications Medication Instructions Recorded Confirmed Last Taken Type No Known Home Medications [No 08/10/20 08/10/20 Unknown History Reported Home Medications] Active Meds: Active Medications Acetaminophen (Acetaminophen 325 Mg Tab) 650 mg PO Q6H PRN PRN Reason: Pain, Mild (1-3) Last Admin: 08/10/20 20:14 Dose: 650 mg Documented by: Aspirin (Aspirin 81 Mg Tab Chew) 81 mg PO QDAY [facility] Last Admin: 08/11/20 09:04 Dose: 81 mg Documented by: Dextrose (Dextrose 50% In Water (25gm) 50 Ml Syringe) 0 ml IV Q30MIN PRN; Protocol PRN Reason: Hypoglycemia Last Admin: 08/11/20 12:05 Dose: 50 ml Documented by: Furosemide (Furosemide 40 Mg/4 Ml Inj) 40 mg IV BID@0600,1800 [facility] Last Admin: 08/11/20 07:22 Dose: 40 mg Documented by: Heparin Sodium/Sodium Chloride (Heparin/ 0.45% Nacl-25,000 Unit/500 Ml) 25,000 unit in 500 mls @ 20 mls/hr IV TITRATE FESTUS; Protocol Last Titration: 08/11/20 07:03 Dose: 783 units/hr, 15.66 mls/hr Documented by: Insulin Human Lispro (Insulin Lispro 100 Unit/Ml) 0 unit SUB-Q ACHS FESTUS; Protocol Last Admin: 08/11/20 08:33 Dose: Not Given Documented by: Lisinopril (Lisinopril 5 Mg Tab) 5 mg PO QDAY [facility] Last Admin: 08/11/20 09:04 Dose: 5 mg Documented by: Magnesium Hydroxide (Magnesium Hydroxide (Mom) Oral Liqd Udc) 30 ml PO Q4H PRN PRN Reason: Constipation Metoprolol Tartrate (Metoprolol Tartrate 25 Mg Tab) 25 mg PO TID [facility] Last Admin: 08/11/20 09:03 Dose: 25 mg Documented by: Nitroglycerin (Nitroglycerin 0.4 Mg Tab Subl) 0.4 mg SL Q5M PRN PRN Reason: Chest Pain Ondansetron HCl (Ondansetron 4 Mg/2 Ml Inj) 4 mg IV Q8H PRN PRN Reason: Nausea And Vomiting Last Admin: 08/10/20 23:32 Dose: 4 mg Documented by: Sodium Chloride (Sodium Chloride 0.9% 10 Ml Flush Syringe) 10 ml IV BID FESTUS Last Admin: 08/11/20 09:03 Dose: 10 ml Documented by: Sodium Chloride (Sodium Chloride 0.9% 10 Ml Flush Syringe) 10 ml IV PRN PRN PRN Reason: LINE FLUSH Physical Examination - Vital Signs Vital Signs: Vital Signs Temp Pulse Resp BP Pulse Ox 98.9 F 118 H 24 155/118 99 08/09/20 17:27 08/09/20 17:27 08/09/20 17:27 08/09/20 17:27 08/09/20 17:27 Results - Laboratory Findings CBC and BMP: 08/11/20 05:15 08/11/20 05:15 Abnormal Lab Findings: Abnormal Labs 08/09/20 08/09/20 08/09/20 17:24 17:28 17:28 MCV 78 L MCH 23 L RDW 19.4 H Josephine % (Auto) Josephine # (Auto) Seg Neutrophils % 76.9 H PT INR Heparin Anti-Xa Level Sodium 128 L Chloride 94.1 L Carbon Dioxide 16 L BUN Creatinine 0.4 L Glucose 377 H POC Glucose 329 H Hemoglobin A1c Total Bilirubin Direct Bilirubin AST ALT Alkaline Phosphatase Troponin T 0.037 H NT-Pro-B Natriuret Pep Total Protein Albumin HDL Cholesterol 91 H Ur Specific [place] 08/09/20 08/09/20 08/09/20 17:28 20:12 21:12 MCV MCH RDW Josephine % (Auto) Josephine # (Auto) Seg Neutrophils % PT INR 1.14 H Heparin Anti-Xa Level Sodium Chloride Carbon Dioxide BUN Creatinine Glucose POC Glucose Hemoglobin A1c Total Bilirubin 2.40 H Direct Bilirubin 1.3 H AST 66 H ALT 71 H Alkaline Phosphatase 888 H Troponin T 0.044 H NT-Pro-B Natriuret Pep 1579 H Total Protein 6.2 L Albumin 3.3 L HDL Cholesterol Ur Specific [place] 08/09/20 08/10/20 08/10/20 Unknown 04:21 04:24 MCV MCH RDW [place] % (Auto) Josephine # (Auto) Seg Neutrophils % PT INR Heparin Anti-Xa Level 0.73 H Sodium Chloride Carbon Dioxide BUN Creatinine Glucose POC Glucose Hemoglobin A1c Total Bilirubin Direct Bilirubin AST ALT Alkaline Phosphatase Troponin T 0.048 H NT-Pro-B Natriuret Pep Total Protein Albumin HDL Cholesterol Ur Specific [place] 1.040 H 08/10/20 08/10/20 08/10/20 07:36 07:39 11:11 MCV MCH RDW [place] % (Auto) Josephine # (Auto) Seg Neutrophils % PT INR Heparin Anti-Xa Level Sodium Chloride Carbon Dioxide BUN Creatinine Glucose POC Glucose 389 H 442 H Hemoglobin A1c Total Bilirubin Direct Bilirubin AST ALT Alkaline Phosphatase Troponin T 0.056 H NT-Pro-B Natriuret Pep Total Protein Albumin HDL Cholesterol Ur Specific [place] 08/10/20 08/10/20 08/10/20 11:38 11:38 16:16 MCV MCH RDW [place] % (Auto) Josephine # (Auto) Seg Neutrophils % PT INR Heparin Anti-Xa Level 0.87 H Sodium Chloride Carbon Dioxide BUN Creatinine Glucose POC Glucose 351 H Hemoglobin A1c 15.1 H Total Bilirubin Direct Bilirubin AST ALT Alkaline Phosphatase Troponin T NT-Pro-B Natriuret Pep Total Protein Albumin HDL Cholesterol Ur Specific [place] 08/10/20 08/10/20 08/11/20 18:58 21:52 05:15 MCV 78 L MCH 24 L RDW 18.9 H Josephine % (Auto) 10.8 H Josephine # (Auto) 1.1 H Seg Neutrophils % PT INR Heparin Anti-Xa Level 0.71 H Sodium Chloride Carbon Dioxide BUN Creatinine Glucose POC Glucose 135 H Hemoglobin A1c Total Bilirubin Direct Bilirubin AST ALT Alkaline Phosphatase Troponin T NT-Pro-B Natriuret Pep Total Protein Albumin HDL Cholesterol Ur Specific [place] 08/11/20 08/11/20 08/11/20 05:15 05:15 08:20 MCV MCH RDW [place] % (Auto) Josephine # (Auto) Seg Neutrophils % PT 17.1 H INR 1.40 H Heparin Anti-Xa Level 0.72 H Sodium 136 L D Chloride 96.3 L Carbon Dioxide BUN 21 H Creatinine Glucose 64 L POC Glucose 64 L Hemoglobin A1c Total Bilirubin Direct Bilirubin AST ALT Alkaline Phosphatase Troponin T NT-Pro-B Natriuret Pep Total Protein Albumin HDL Cholesterol Ur Specific [place] 08/11/20 08/11/20 11:57 12:31 MCV MCH RDW [place] % (Auto) Josephine # (Auto) Seg Neutrophils % PT INR Heparin Anti-Xa Level Sodium Chloride Carbon Dioxide BUN Creatinine Glucose POC Glucose 33 L 159 H Hemoglobin A1c Total Bilirubin Direct Bilirubin AST ALT Alkaline Phosphatase Troponin T NT-Pro-B Natriuret Pep Total Protein Albumin HDL Cholesterol Ur Specific [place] Assessment and Plan [facility] Consult Note # Demographics Consult Type: Acute Stroke Level 1 (0-4.5 hrs) Patient Location: Emergency Room First Name: Mary Last Name: Date of : 1970 Age: 50 Gender: Female Time of Initial Page (Eastern Time): 08/11/2020, 13:04 Time of Return Call (Eastern Time): 08/11/2020, 13:04 # HPI History: 50yo F admitted for CHF and NSTEMI, on heparin drip per staff. was normal earlier today, estimated lat well at 1200. then became unresponsive. she had a glucose earlier today of 33 but was speaking to nurse. treated with D50 and has since improved. # Scores Level of Consciousness 1a: [3] = Responds only with reflex motor or unresponsive LOC Questions 1b: [2] = Answers neither correctly LOC Commands 1c: [2] = Performs neither correctly Best Gaze 2: [0] = Normal Visual 3: [0] = No visual loss Facial Palsy 4: [0] = Normal symmetrical movements Motor Arm Left 5a: [4] = No movement Motor Arm Right 5b: [4] = No movement Motor Leg Left 6a: [4] = No movement Motor Leg Right 6b: [4] = No movement Limb Ataxia 7: [0] = Absent Sensory 8: [2] = Severe to total sensory loss Best Language 9: [3] = Mute Dysarthria 10: [2] = Severe dysarthria Extinction and Inattention 11: [0] = No abnormality NIHSS Total: 30 # PMH-FH-SH Past Medical History: coronary artery disease Medications: anticoagulant # Data Glucose: 33 # Assessment Impression: Altered Mental Status # Plan Thrombolytic/Intervention: NOT IV Thrombolytic or IA Intervention Thrombolytic Exclusion (< 3 hour window): actively on NOAC Thrombolytic Exclusion: heparin drip Intraarterial Exclusion: clinically consistent with small vessel disease Imaging: (urgency: routine admission): CT Angiogram Head and CT Angiogram Neck AND call back with results if abnormal Other: I have discussed my recommendations with the referring provider Additional Recommendations: MRI and EEG recommended if CTA unrevealing Disposition: continue admission # Logistics Telemedicine: Interactive 2 way audio and visual telecommunication technology was utilized during this visit
--- NOTE | 2020-08-11 13:16 | Cat Scan Report ---
CT BRAIN: 08/11/2020 INDICATION / CLINICAL INFORMATION: AMS. COMPARISON: MRI brain 10/17/2015 FINDINGS: BRAIN/INTRACRANIAL STRUCTURES: Unenhanced CT images of the brain were obtained. There is no evidence of acute abnormality. Focal area of subcortical encephalomalacia is present in the right peritrigonal white matter of the p arietal lobe. This is presumably related to prior brain injury or ischemia. A small focal area of hypoattenuation is present in the right frontal subcortical white matter. In the left frontal lobe, there is hypoattenuation in the small portion of the left frontal cortex, b est seen on axial images 21-23. However consider this to be of indeterminate age. There is no CT evidence of acute large vessel territory ischemic injury, hemorrhage, or mass. EXTRACRANIAL STRUCTURES: Unremarkable. IMPRESSION: No definite evidence of acute large vessel territory ischemic injury. Chronic or subacute changes as described above. No evidence of hemorrhage. All CT scans at this location are performed using dose reduction to ALARA by means of automated expos ure control. Signer Name: Quincy Charles MD Signed: 08/11/2020 1:12 PM Workstation Name: [id number]
--- NOTE | 2020-08-11 14:18 | Cat Scan Report ---
CTA NECK WITH CONTRAST 08/11/2020 INDICATION / CLINICAL INFORMATION: CVA. COMPARISON: None. TECHNIQUE: Routine CTA of the neck is performed. 3-D/MIP reformats were postprocessed. Percentage st enosis is determined by direct quantitative measurements of diseased internal carotid artery diameter compared with normal distal internal carotid artery reference segments or by criteria similar to ROGERIO CET where applicable. All CT scans at this location are performed using CT dose reduction for ALARA b y means of automated exposure control. CONTRAST: 100 ml of Omnipaque 350 FINDINGS: Carotid bifurcations: There is no evidence of carotid bifurcation stenosis. Carotid arteries: No significant abnormality. Cervical vertebral arteries: No significant abnormality. Aortic arch: No significant abnormality. Prominent right-sided pleural effusion is present. Small left-sided pleural effusion is present. Thes e are only partially evaluated as part of this neck protocol. IMPRESSION: No evidence of carotid bifurcation stenosis. Signer Name: Quincy Charles MD Signed: 08/11/2020 2:13 PM Workstation Name: [id number]
--- NOTE | 2020-08-11 14:21 | Cat Scan Report ---
CTA HEAD WITH CONTRAST 08/11/2020 HISTORY: CVA COMPARISON: None. TECHNIQUE: All CT scans at this location are performed using CT dose reduction for ALARA by means of automated exposure control.. 3-D/MIP reformats postprocessed. Percentage stenosis is determined by d irect quantitative measurements of diseased internal carotid artery diameter compared with normal dis rj internal carotid artery reference segments or by criteria similar to NASCET where applicable. CONTRAST: 100 ml of Isovue 370 FINDINGS: CTA HEAD: Intracranial vertebral arteries: No significant abnormality. Basilar artery: No significant abnormality. Posterior cerebral arteries: No significant abnormality. Intracranial internal carotid arteries: No significant abnormality. Anterior cerebral arteries: No significant abnormality. Middle cerebral arteries: No significant abnormality. Dural venous sinuses:Not optimally opacified. No significant abnormality. Additional findings: None. IMPRESSION: 1. No significant abnormality. Signer Name: Quincy Charles MD Signed: 08/11/2020 2:17 PM Workstation Name: [id number]
--- NOTE | 2020-08-11 14:45 | XRay Report ---
CHEST 1 VIEW 08/11/2020 1:21 PM INDICATION / CLINICAL INFORMATION: AMS. COMPARISON: 2 views of the chest from 08/09/2020. FINDINGS: SUPPORT DEVICES: None. HEART / MEDIASTINUM: Stable. LUNGS / PLEURA: Increased bibasilar atelectasis with similar bilateral pleural effusions. No pneumoth orax. ADDITIONAL FINDINGS: No significant additional findings. IMPRESSION: Increased bibasilar atelectasis with similar pleural effusions. Signer Name: David Holloway MD Signed: 08/11/2020 2:41 PM Workstation Name: [id number]
[2020-08-11 14:49] LABS: Alanine Aminotransferase 297 units/L (7-56); Blood Urea Nitrogen 24 mg/dL (7-17); Hemolysis Index 0
--- NOTE | 2020-08-11 14:57 | Progress Note ---
Assessment and Plan Cardiology consulted for CP and acute on chronic HFrEF. 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 Echo (08/10/2020) reviewed: EF 10-15%, Severe hypokinesis of the left ventricle. Left ventricular medium thrombus present. Moderate MR. Mild ND. Moderate TR. Continue Heparin drip in setting of LV thrombus and plan for conversion to coumadin prior to hospital discharge. Cont lopressor and lisinopril. Titrate as tolerated. Cont IV diuretics. F/u BMP in AM. Plan for ischemic evaluation for further investigation of cardiomyopathy etiology once medically stabilized- likely Friday AM. Suspect hereditary CMP per pt's family history. Will follow. This patient was seen in conjunction with Dr Denia Varela who agrees with this assessment and plan of care. - Patient Problems (1) HFrEF (heart failure with reduced ejection fraction) Current Visit: Yes Status: Chronic (2) Dilated cardiomyopathy Current Visit: Yes Status: Acute (3) Left ventricular apical thrombus Current Visit: Yes Status: Chronic (4) Elevated troponin Current Visit: Yes Status: Acute (5) Chest pain Current Visit: Yes Status: Acute Qualifiers: Chest pain type: unspecified Qualified Code(s): R07.9 - Chest pain, unspecified (6) HTN (hypertension) Current Visit: Yes Status: Chronic (7) Uncontrolled diabetes mellitus Current Visit: Yes Status: Chronic (8) History of CVA (cerebrovascular accident) Current Visit: Yes Status: Chronic (9) Hyponatremia Current Visit: Yes Status: Acute (10) Medical non-compliance Current Visit: Yes Status: Chronic (11) Sinus tachycardia Current Visit: Yes Status: Acute Subjective Date of service: 08/11/20 Principal diagnosis: HF Interval history: pt resting in bed, feeling a little better. tele reviewed - in SR HR 90s. Objective Last Vital Signs Temp 98.9 F 08/11/20 12:02 Pulse 80 08/11/20 12:02 Resp 16 08/11/20 12:02 BP 156/114 08/11/20 12:39 Pulse Ox 96 08/11/20 12:02 - Physical Examination General: No Apparent Distress HEENT: Positive: PERRL, Normocephaly, Mucus Membranes Moist Neck: Positive: neck supple, trachea midline, JVD/HJR Cardiac: Positive: Reg Rate and Rhythm, S1/S2 Lungs: Positive: Decreased Breath Sounds Neuro: Positive: Grossly Intact Abdomen: Positive: Unremarkable Skin: Negative: Rash, Wound Musculoskeletal: No Pain Extremities: Present: upper extr. pulses, lower extr. pulses, +2 Edema - Labs and Meds Coagulation 08/11/20 Range/Units 05:15 PT 17.1 H (12.2-14.9) Sec. INR 1.40 H (0.87-1.13) CBC 08/11/20 Range/Units 05:15 WBC 10.2 (4.5-11.0) K/mm3 RBC 4.97 (3.65-5.03) M/mm3 Hgb 11.8 (10.1-14.3) gm/dl Hct 38.6 (30.3-42.9) % Plt Count 350 (140-440) K/mm3 Lymph # (Auto) 2.9 (1.2-5.4) K/mm3 [place] # (Auto) 1.1 H (0.0-0.8) K/mm3 Eos # (Auto) 0.0 (0.0-0.4) K/mm3 Baso # (Auto) 0.1 (0.0-0.1) K/mm3 Comprehensive Metabolic Panel 08/11/20 Range/Units 05:15 Sodium 136 L D (137-145) mmol/L Potassium 3.9 (3.6-5.0) mmol/L Chloride 96.3 L (98-107) mmol/L Carbon Dioxide 26 D (22-30) mmol/L BUN 21 H (7-17) mg/dL Creatinine 0.8 D (0.6-1.2) mg/dL Glucose 64 L (65-100) mg/dL Calcium 8.7 (8.4-10.2) mg/dL - Imaging and Cardiology EKG: report reviewed, image reviewed Echo: report reviewed (EF 10-15%, Severe hypokinesis of the left ventricle. Left ventricular medium thrombus present. Moderate MR. Mild ND. Moderate TR.) - Telemetry EKG Rhythm: Sinus Rhythm - EKG Sinus rhythms and dysrhythmias: sinus tachycardia
[2020-08-11] MEDS ORDERED: SODIUM CHLORIDE 0.9% 500 ML 500 ML IV SCH (15:00)
[2020-08-11] MEDS: DEXTROSE 5% IN WATER 1,000 ML IV SCH (15:15)
[2020-08-11 15:20] LABS: BUN/Creatinine Ratio 34
--- NOTE | 2020-08-11 16:58 | Magnetic Resonance Report ---
MR brain wo con INDICATION / CLINICAL INFORMATION: 50 years Female; AMS. TECHNIQUE: Multiplanar, multisequence MR images of the brain were obtained. COMPARISON: The study is compared to previous MRI of 10/16/2014. FINDINGS: BRAIN / INTRACRANIAL CONTENTS: There are extensive areas of acute infarction, particularly along the border zone vascular distributions of the frontal and parietal lobes, greater on the left. Additional ly, there is also acute infarct involving the anterior left corpus striatum. Additionally, there are foci of acute infarction involving occipital lobes including the cortex, greater on the left. There are foci of acute infarction involving cerebral hemispheres, most prominent inferiorly and anteriorly on the right measuring 8 mm in AP dimension. Correlation would be needed regarding hypoxia given the distribution of findings. There have been interval evolutionary changes of the infarct involving left frontoparietal junction f rom the previous MRI. The ventricular system appears unchanged in size configuration on the current e xam. No developing extra-axial fluid collections are identified. CRANIOCERVICAL JUNCTION: No significant abnormality. 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 ORBITS: No significant abnormality of visualized orbits. SINUSES / MASTOIDS: No significant abnormality in the visualized paranasal sinuses or mastoid air david ls. ADDITIONAL FINDINGS: None. IMPRESSION: 1. There are extensive areas of acute infarction, particularly along the border zone vascular distrib utions of the cerebral hemispheres, greater on the left as detailed above. There are also foci of acu te infarction within the cerebellum including 8 mm focus anteriorly on the right. Signer Name: Jax Snell MD Signed: 08/11/2020 4:54 PM Workstation Name: [id number]
--- NOTE | 2020-08-11 17:46 | Progress Note ---
Subjective Date of service: 08/11/20 Principal diagnosis: HF Interval history: [facility] Consult Note # Demographics Consult Type: Follow-Up Phone Call Patient Location: Inpatient First Name: Blanche Last Name: Gender: Female Time of Initial Page (Eastern Time): 08/11/2020, 17:41 Time of Return Call (Eastern Time): 08/11/2020, 17:41 Phone Only Consult: pt found to have multifocal strokes. EF 10-15%, having an NSTEMI and placed on heparin drip. discussed suspicion for cardiac thrombus. ok to continue heparin drip given NSTEMI. consider SAL if TTE unrevealing. MRI reviewed combination of watershed and embolic apeparance to the strokes. moderate in size # [employer] Telemedicine: phone only Objective - Vital Sign Vital Signs - 12hr 08/11/20 08/11/20 08/11/20 08:22 09:27 12:02 Temperature 97.9 F 98.9 F Pulse Rate 88 85 80 Respiratory 16 16 Rate Blood Pressure 130/91 129/95 O2 Sat by Pulse 92 96 Oximetry 08/11/20 12:39 Temperature Pulse Rate Respiratory Rate Blood Pressure 156/114 O2 Sat by Pulse Oximetry - Laboratory Findings CBC and BMP: 08/11/20 05:15 08/11/20 13:44 Abnormal Lab Findings: Abnormal Labs 08/09/20 08/09/20 08/09/20 17:24 17:28 17:28 MCV 78 L MCH 23 L RDW 19.4 H [place] % (Auto) [place] # (Auto) Seg Neutrophils % 76.9 H PT INR Heparin Anti-Xa Level Sodium 128 L Potassium Chloride 94.1 L Carbon Dioxide 16 L BUN Creatinine 0.4 L Glucose 377 H POC Glucose 329 H Hemoglobin A1c Calcium Total Bilirubin Direct Bilirubin AST ALT Alkaline Phosphatase Ammonia Troponin T 0.037 H NT-Pro-B Natriuret Pep Total Protein Albumin HDL Cholesterol 91 H Ur Specific [place] 08/09/20 08/09/20 08/09/20 17:28 20:12 21:12 MCV MCH RDW [place] % (Auto) [place] # (Auto) Seg Neutrophils % PT INR 1.14 H Heparin Anti-Xa Level Sodium Potassium Chloride Carbon Dioxide BUN Creatinine Glucose POC Glucose Hemoglobin A1c Calcium Total Bilirubin 2.40 H Direct Bilirubin 1.3 H AST 66 H ALT 71 H Alkaline Phosphatase 888 H Ammonia Troponin T 0.044 H NT-Pro-B Natriuret Pep 1579 H Total Protein 6.2 L Albumin 3.3 L HDL Cholesterol Ur Specific [place] 08/09/20 08/10/20 08/10/20 Unknown 04:21 04:24 MCV MCH RDW [place] % (Auto) [place] # (Auto) Seg Neutrophils % PT INR Heparin Anti-Xa Level 0.73 H Sodium Potassium Chloride Carbon Dioxide BUN Creatinine Glucose POC Glucose Hemoglobin A1c Calcium Total Bilirubin Direct Bilirubin AST ALT Alkaline Phosphatase Ammonia Troponin T 0.048 H NT-Pro-B Natriuret Pep Total Protein Albumin HDL Cholesterol Ur Specific [place] 1.040 H 08/10/20 08/10/20 08/10/20 07:36 07:39 11:11 MCV MCH RDW [place] % (Auto) [place] # (Auto) Seg Neutrophils % PT INR Heparin Anti-Xa Level Sodium Potassium Chloride Carbon Dioxide BUN Creatinine Glucose POC Glucose 389 H 442 H Hemoglobin A1c Calcium Total Bilirubin Direct Bilirubin AST ALT Alkaline Phosphatase Ammonia Troponin T 0.056 H NT-Pro-B Natriuret Pep Total Protein Albumin HDL Cholesterol Ur Specific [place] 08/10/20 08/10/20 08/10/20 11:38 11:38 16:16 MCV MCH RDW [place] % (Auto) [place] # (Auto) Seg Neutrophils % PT INR Heparin Anti-Xa Level 0.87 H Sodium Potassium Chloride Carbon Dioxide BUN Creatinine Glucose POC Glucose 351 H Hemoglobin A1c 15.1 H Calcium Total Bilirubin Direct Bilirubin AST ALT Alkaline Phosphatase Ammonia Troponin T NT-Pro-B Natriuret Pep Total Protein Albumin HDL Cholesterol Ur Specific [place] 08/10/20 08/10/20 08/11/20 18:58 21:52 05:15 MCV 78 L MCH 24 L RDW 18.9 H [place] % (Auto) 10.8 H [place] # (Auto) 1.1 H Seg Neutrophils % PT INR Heparin Anti-Xa Level 0.71 H Sodium Potassium Chloride Carbon Dioxide BUN Creatinine Glucose POC Glucose 135 H Hemoglobin A1c Calcium Total Bilirubin Direct Bilirubin AST ALT Alkaline Phosphatase Ammonia Troponin T NT-Pro-B Natriuret Pep Total Protein Albumin HDL Cholesterol Ur Specific [place] 08/11/20 08/11/20 08/11/20 05:15 05:15 08:20 MCV MCH RDW [place] % (Auto) [place] # (Auto) Seg Neutrophils % PT 17.1 H INR 1.40 H Heparin Anti-Xa Level 0.72 H Sodium 136 L D Potassium Chloride 96.3 L Carbon Dioxide BUN 21 H Creatinine Glucose 64 L POC Glucose 64 L Hemoglobin A1c Calcium Total Bilirubin Direct Bilirubin AST ALT Alkaline Phosphatase Ammonia Troponin T NT-Pro-B Natriuret Pep Total Protein Albumin HDL Cholesterol Ur Specific [place] 08/11/20 08/11/20 08/11/20 11:57 12:31 13:44 MCV MCH RDW [place] % (Auto) [place] # (Auto) Seg Neutrophils % PT INR Heparin Anti-Xa Level Sodium 136 L Potassium 2.6 L* D Chloride Carbon Dioxide BUN 24 H Creatinine Glucose POC Glucose 33 L 159 H Hemoglobin A1c Calcium 8.0 L Total Bilirubin 2.70 H Direct Bilirubin AST 717 H ALT 297 H Alkaline Phosphatase 919 H Ammonia Troponin T NT-Pro-B Natriuret Pep Total Protein 5.7 L Albumin 3.0 L HDL Cholesterol Ur Specific [place] 08/11/20 08/11/20 13:44 14:54 MCV MCH RDW [place] % (Auto) [place] # (Auto) Seg Neutrophils % PT INR Heparin Anti-Xa Level Sodium Potassium Chloride Carbon Dioxide BUN Creatinine Glucose POC Glucose 42 L Hemoglobin A1c Calcium Total Bilirubin Direct Bilirubin AST ALT Alkaline Phosphatase Ammonia 103.0 H Troponin T NT-Pro-B Natriuret Pep Total Protein Albumin HDL Cholesterol Ur Specific [place]
--- NOTE | 2020-08-11 18:01 | Event Note ---
Date: 08/11/20 I have been notified with nursing staff that Ms Perez has altered mental status, I went and evaluated her and patient was altered. Patient has strong pulse, was on oxygen and saturation was ok. No fever. Blood sugar was checked and was 135 but earlier patient had hypoglycemia and was treated with dextrose and insulin discontinued put on D5w. I called code stroke and stat CT, head, CTA head & neck was done and was unrevealing. MRI was done and showed extensive acute infarction. Neurology was consulted and discussed with Dr Flores and she said continue with heparin drip, no other recommendations. she said SAL but patient had LV thrombus on TTE and there is no need to It. patient was evaluated by cardiology Echo showed EF 10-15%, LV thrombus and patient is on heparin drip and other appropriate CHF treatment. Patient was not following with physician and was not taking any medications and her a1c was 15.1. Patient was diagnosed with CHF with EF of 10-15% 4 years ago and didn't have any follow ups and she said [facility] has no insurance. I called and discussed with her Spouse Priya over the phone. She said patient doesn't want resucitation or intubation. she now DNR/DNI. Priya Riley @[phone]. Prognosis is very poor. The high probability of a clinically significant, sudden or life threatening deterioration of the [neurology, CV] system(s) required my full and direct attention, intervention and personal management. The aggregate critical care time was [32] minutes. This time is in addition to time spent performing reported procedures but includes the following: [x] Data Review and interpretation [x] Patient assessment and monitoring of vital signs [x] Documentation [x] Medication orders and management
[2020-08-11] MEDS: POTASSIUM CHLORIDE 10 MEQ 10 MEQ/100 ML BAG IV SCH ×4 (18:28→22:08)
[2020-08-12] MEDS: METOPROLOL TARTRATE 50 MG TAB PO SCH ×3 (01:50→21:56)
[2020-08-12] MEDS: INSULIN LISPRO 100 UNIT/ML SUB-Q SCH ×4 (01:50→17:17)
[2020-08-12 05:56] LABS: BUN/Creatinine Ratio 32; Blood Urea Nitrogen 29 mg/dL (7-17); Calcium 8.3 mg/dL (8.4-10.2); Hemolysis Index 2
[2020-08-12] MEDS: HEPARIN/ 0.45% NACL DRIP 25,000 UNIT/500 ML BAG IV SCH ×2 (06:20→15:55)
[2020-08-12] MEDS: DEXTROSE 5% IN WATER 1,000 ML IV SCH ×2 (06:20→18:37)
[2020-08-12] MEDS: FUROSEMIDE 40 MG/4 ML INJ IV SCH ×2 (06:20→17:31)
[2020-08-12] MEDS: METOPROLOL TARTRATE 25 MG TAB PO SCH (07:35)
[2020-08-12] MEDS: POTASSIUM CHLORIDE 10 MEQ 10 MEQ/100 ML BAG IV SCH (07:35)
--- NOTE | 2020-08-12 09:03 | Progress Note ---
Assessment and Plan Assessment and plan: (1) NSTEMI (non-ST elevated myocardial infarction) Current Visit: Yes Status: Acute Plan to address problem: We will trend serial cardiac enzymes. Patient placed on daily aspirin, sublingual nitroglycerin as needed for chest pain. She has been started on heparin drip. Consult placed to cardiology for evaluation. (2) CHF (congestive heart failure) Current Visit: Yes Status: Acute Qualifiers: Heart failure type: unspecified Heart failure chronicity: acute on chronic Qualified Code(s): I50.9 - Heart failure, unspecified Plan to address problem: We will monitor daily weights, inputs and outputs will be closely monitored. Patient will be scheduled for echocardiogram. (3) Diabetes mellitus Current Visit: Yes Status: Acute Plan to address problem: Patient placed on sliding scale insulin. Will monitor Accu-Cheks closely. (4) DVT prophylaxis Current Visit: Yes Status: Acute Plan to address problem: Patient currently on anticoagulation. (5) Full code status Current Visit: Yes Status: Acute Plan to address problem: Patient is full code. 08/10/2020 -Patient is admitted for the management of non-STEMI and CHF. Patient is on heparin drip, aspirin, IV Lasix. Monitor in and out. Cardiology is following the patient. Diabetes mellitus with hyperglycemia; blood glucose was above 400 and I started the patient on long-acting insulin, Humalog AC and sliding scale insulin, will follow hemoglobin A1c level. -Continue inpatient care 08/11/20 -Patient had echo showed EF of 10 to 15%, with diastolic dysfunction. Patient had echo in 2015 and had EF of 15 to 20%. Patient started on metoprolol, and lisinopril. Blood pressure is well controlled. Continue with IV Lasix. Cardiology is following and will do ischemic work-up on Friday. Patient's hemoglobin A1c is 15.1, has hyperglycemia, and started on Lantus and sliding scale insulin and AC Humalog. Blood pressure this morning was 64 and I discontinued the AC Humalog, monitor blood sugar and adjust insulin as needed. -Disposition continue inpatient care. -I have been notified with nursing staff that Ms Perez has altered mental status, I went and evaluated her and patient was altered. Patient has strong pulse, was on oxygen and saturation was ok. No fever. Blood sugar was checked and was 135 but earlier patient had hypoglycemia and was treated with dextrose and insulin d iscontinued put on D5w. I called code stroke and stat CT, head, CTA head & neck was done and was unrevealing. MRI was done and showed extensive acute infarction. Neurology was consulted and discussed with Dr Flores and she said continue with heparin drip, no other recommendations. she said SAL but patient had LV thrombus on TTE and there is no need to It. patient was evaluated by cardiology Echo showed EF 10-15%, LV thrombus and patient is on heparin drip and other appropriate CHF treatment. Patient was not following with physician and was not taking any medications and her a1c was 15.1. Patient was diagnosed with CHF with EF of 10-15% 4 years ago and didn't have any follow ups and she said donovan has no insurance. I called and discussed with her Spouse Priya over the phone. She said patient doesn't want resucitation or intubation. she now DNR/DNI. Priya Riley @[phone]. Prognosis is very poor. 08/12/20 -Extensive acute infarction. Acute on chronic systolic CHF, left ventricular thrombus. Patient is on heparin drip. Cardiology is following. Neurology recommendations noted. Prognosis is poor. Will follow. Patient is DNR/DNI. If no provement in her mental status I will put OG tube feeding for now. Management plan discussed with our spouse yesterday. History Interval history: Patient was seen and evaluated this morning Patient is noncommunicative, comatose Hospitalist Physical - Physical exam Narrative exam: On intranasal oxygen The patient appeared well nourished and normally developed. Vital signs as documented. Head exam is unremarkable. No scleral icterus . Neck is without jugular venous distension, thyromegaly, or carotid bruits. Lungs are clear to auscultation. Cardiac exam reveals regular rate and Rhythm. Tachycardic Abdominal exam reveals normal bowel sounds, nontender, no organomegaly. Extremities are nonedematous and both femoral and pedal pulses are normal. SETTLEMENT AGENT: Altered mental status - Constitutional Vitals: Temp Pulse Resp BP Pulse Ox 98.1 F 129 H 58 H 136/98 98 08/12/20 04:01 08/12/20 04:01 08/12/20 04:01 08/12/20 04:01 08/12/20 04:01 General appearance: Present: no acute distress HEART Score - HEART Score EKG: Non-specific Age: 45-65 Risk factors: > 3 risk factors or hx of atherosclerotic disease Troponin: Troponin T 0.056 ng/mL (0.00-0.029) H 08/10/20 07:39 Troponin: > 3x normal limit Results - Labs CBC & Chem 7: 08/11/20 05:15 08/12/20 04:18 Labs: Laboratory Last Values WBC 10.2 K/mm3 (4.5-11.0) 08/11/20 05:15 RBC 4.97 M/mm3 (3.65-5.03) 08/11/20 05:15 Hgb 11.8 gm/dl (10.1-14.3) 08/11/20 05:15 Hct 38.6 % (30.3-42.9) 08/11/20 05:15 MCV 78 fl (79-97) L 08/11/20 05:15 MCH 24 pg (28-32) L 08/11/20 05:15 MCHC 31 % (30-34) 08/11/20 05:15 RDW 18.9 % (13.2-15.2) H 08/11/20 05:15 Plt Count 350 K/mm3 (140-440) 08/11/20 05:15 Lymph % (Auto) 28.3 % (13.4-35.0) 08/11/20 05:15 [place] % (Auto) 10.8 % (0.0-7.3) H 08/11/20 05:15 Eos % (Auto) 0.4 % (0.0-4.3) 08/11/20 05:15 Baso % (Auto) 1.2 % (0.0-1.8) 08/11/20 05:15 Lymph # (Auto) 2.9 K/mm3 (1.2-5.4) 08/11/20 05:15 [place] # (Auto) 1.1 K/mm3 (0.0-0.8) H 08/11/20 05:15 Eos # (Auto) 0.0 K/mm3 (0.0-0.4) 08/11/20 05:15 Baso # (Auto) 0.1 K/mm3 (0.0-0.1) 08/11/20 05:15 Seg Neutrophils % 59.3 % (40.0-70.0) 08/11/20 05:15 Seg Neutrophils # 6.0 K/mm3 (1.8-7.7) 08/11/20 05:15 PT 17.1 Sec. (12.2-14.9) H 08/11/20 05:15 INR 1.40 (0.87-1.13) H 08/11/20 05:15 APTT 27.4 Sec. (24.2-36.6) 08/09/20 21:12 Heparin Anti-Xa Level 0.32 U.I./ml (0.3-0.7) 08/11/20 13:44 Sodium 131 mmol/L (137-145) L 08/12/20 04:18 Potassium 4.4 mmol/L (3.6-5.0) D 08/12/20 04:18 Chloride 93.1 mmol/L (98-107) L 08/12/20 04:18 Carbon Dioxide 13 mmol/L (22-30) L D 08/12/20 04:18 Anion Gap 29 mmol/L 08/12/20 04:18 BUN 29 mg/dL (7-17) H 08/12/20 04:18 Creatinine 0.9 mg/dL (0.6-1.2) 08/12/20 04:18 Estimated GFR > 60 ml/min 08/12/20 04:18 BUN/Creatinine Ratio 32 % 08/12/20 04:18 Glucose 144 mg/dL (65-100) H 08/12/20 04:18 POC Glucose 102 mg/dL (70-105) 08/11/20 23:11 Hemoglobin A1c 15.1 % (4-6) H 08/10/20 11:38 Calcium 8.3 mg/dL (8.4-10.2) L 08/12/20 04:18 Magnesium 1.60 mg/dL (1.7-2.3) L 08/11/20 18:08 Total Bilirubin 2.70 mg/dL (0.1-1.2) H 08/11/20 13:44 Direct Bilirubin 1.3 mg/dL (0-0.2) H 08/09/20 17:28 Indirect Bilirubin 1.1 mg/dL 08/09/20 17:28 AST 717 units/L (5-40) H 08/11/20 13:44 ALT 297 units/L (7-56) H 08/11/20 13:44 Alkaline Phosphatase 919 units/L (35-129) H 08/11/20 13:44 Ammonia 103.0 umol/L (25-60) H 08/11/20 13:44 Troponin T 0.056 ng/mL (0.00-0.029) H 08/10/20 07:39 NT-Pro-B Natriuret Pep 1579 pg/mL (0-450) H 08/09/20 17:28 Total Protein 5.7 g/dL (6.3-8.2) L 08/11/20 13:44 Albumin 3.0 g/dL (3.9-5) L 08/11/20 13:44 Albumin/Globulin Ratio 1.1 % 08/11/20 13:44 Triglycerides 79 mg/dL (2-149) 08/09/20 17:28 Cholesterol 189 mg/dL (50-199) 08/09/20 17:28 LDL Cholesterol Direct 104 mg/dL (50-130) 08/09/20 17:28 HDL Cholesterol 91 mg/dL (40-59) H 08/09/20 17:28 Cholesterol/HDL Ratio 2.07 % 08/09/20 17:28 Lipase 49 units/L (13-60) 08/09/20 17:28 Urine Color Yellow (Yellow) 08/09/20 Unknown Urine Turbidity Clear (Clear) 08/09/20 Unknown Urine pH 6.0 (5.0-7.0) 08/09/20 Unknown Ur Specific [place] 1.040 (1.003-1.030) H 08/09/20 Unknown Urine Protein 100 mg/dl mg/dL (Negative) 08/09/20 Unknown Urine Glucose (UA) >=500 mg/dL (Negative) 08/09/20 Unknown Urine Ketones 20 mg/dL (Negative) 08/09/20 Unknown Urine Blood Neg (Negative) 08/09/20 Unknown Urine Nitrite Neg (Negative) 08/09/20 Unknown Urine Bilirubin Neg (Negative) 08/09/20 Unknown Urine Urobilinogen 2.0 mg/dL (<2.0) 08/09/20 Unknown Ur Leukocyte Esterase Neg (Negative) 08/09/20 Unknown Urine WBC (Auto) 5.0 /HPF (0.0-6.0) 08/09/20 Unknown Urine RBC (Auto) 8.0 /HPF (0.0-6.0) 08/09/20 Unknown U Epithel Cells (Auto) 4.0 /HPF (0-13.0) 08/09/20 Unknown Zazueta/IV: Voiding Method External Female Catheter Active Medications - Current Medications Current Medications: Generic Name Dose Route Start Last Admin Trade Name Freq PRN Reason Stop Dose Admin Acetaminophen 650 mg 08/10/20 00:43 08/10/20 20:14 Acetaminophen 325 Mg Tab PO 650 mg Q6H PRN Administration Pain, Mild (1-3) Aspirin 81 mg 08/11/20 10:00 08/11/20 09:04 Aspirin 81 Mg Tab Chew PO 81 mg QDAY FESTUS Administration Dextrose 0 ml 08/10/20 00:43 08/11/20 19:32 Dextrose 50% In Water (25gm) 50 Ml Syringe IV 50 ml Q30MIN PRN Administration Hypoglycemia Protocol Furosemide 40 mg 08/10/20 06:00 08/12/20 06:20 Furosemide 40 Mg/4 Ml Inj IV 40 mg BID@0600,1800 FESTUS Administration Heparin Sodium/Sodium Chloride 25,000 unit in 500 mls @ 20 mls/hr 08/09/20 22:00 08/12/20 06:20 Heparin/ 0.45% Nacl-25,000 Unit/500 Ml IV 783 units/hr TITRATE FESTUS 15.66 mls/hr Administration Protocol 1,000 UNITS/HR Dextrose 1,000 mls @ 75 mls/hr 08/11/20 16:00 08/12/20 06:20 D5w IV 75 mls/hr DIRECT FESTUS Administration Insulin Human Lispro 0 unit 08/12/20 00:00 08/12/20 06:20 Insulin Lispro 100 Unit/Ml SUB-Q Not Given Q6HR FESTUS Protocol Lisinopril 5 mg 08/11/20 10:00 08/11/20 09:04 Lisinopril 5 Mg Tab PO 5 mg QDAY FESTUS Administration Magnesium Hydroxide 30 ml 08/10/20 00:43 Magnesium Hydroxide (Mom) Oral Liqd Udc PO Q4H PRN Constipation Metoprolol Tartrate 50 mg 08/11/20 22:00 08/12/20 01:50 Metoprolol Tartrate 50 Mg Tab PO Not Given BID FESTUS Nitroglycerin 0.4 mg 08/10/20 00:43 Nitroglycerin 0.4 Mg Tab Subl SL Q5M PRN Chest Pain Ondansetron HCl 4 mg 08/10/20 00:43 08/10/20 23:32 Ondansetron 4 Mg/2 Ml Inj IV 4 mg Q8H PRN Administration Nausea And Vomiting Sodium Chloride 10 ml 08/10/20 10:00 08/11/20 21:21 Sodium Chloride 0.9% 10 Ml Flush Syringe IV 10 ml BID FESTUS Administration Sodium Chloride 10 ml 08/10/20 00:43 Sodium Chloride 0.9% 10 Ml Flush Syringe IV PRN PRN LINE FLUSH Nutrition/Malnutrition Assess - Dietary Evaluation Nutrition/Malnutrition Findings: Nutrition Notes Start: 08/10/20 11:18 Freq: Status: Active Protocol: Document 08/11/20 12:51 AT (Rec: 08/11/20 13:01 AT [id number]) Co-Sign 08/11/20 12:51 CW Nutrition Notes Need for Assessment generated from: MD Order,macerator operator,Education Initial or Follow up Brief Note Current Diagnosis Diabetes,Hypertension,Heart Failure Other Pertinent Diagnosis SOB, NSTEMI, Chest pain Current Diet Cardiac/Consistent CHO Labs/Tests A1c 15.1 [place] Body Weight (kg) 0 Subjective/Other Information Consult for ONS, malnutrition, and follow up for diet education. Visited pt at bedside, but pt was non- responsive to questioning. Pt is currently inappropriate for diet education (Heart Healthy Consistent CHO and CHO counting). Farm Assistant observed significant facial muscle wasting. Was unable to screen for malnutrition. Will follow up for subjective assessment and diet education needs. Pt has financial limitations affecting her adherence to medical compliance. Muscle Mass Moderate Depletion (severe) Fluid Accumulation Mild (non-severe) Nutrition Intervention Add Supplement/Snack (indicate name/kcal Glucerna BID /protein ) Provides kCal: 440 Provides Protein (gm) 20 Follow-Up By: 08/14/20 Additional Comments F/U for intakes, ONS tolerance , full assessment, diet education needs
[2020-08-12] MEDS: ASPIRIN 81 MG TAB CHEW PO SCH (10:24)
[2020-08-12] MEDS: LISINOPRIL 5 MG TAB PO SCH (10:25)
[2020-08-12] MEDS ORDERED: LACTULOSE 20 GM/30 ML ORAL LIQD PO PRN (11:36)
[2020-08-12] MEDS: dexAMETHasone 4 MG/ML VIAL IV SCH ×3 (12:30→17:31)
[2020-08-12] MEDS ORDERED: LIPASE 10,500/PROTEASE 25,000/AMYLASE 43,750 (UNITS) DR CAP FEEDTUBE PRN (12:36)
[2020-08-12] MEDS ORDERED: SODIUM BICARBONATE 325 MG TAB FEEDTUBE PRN (12:36)
[2020-08-12] MEDS ORDERED: SIMPLE SYRUP 15 ML FEEDTUBE PRN ×2 (12:36)
--- NOTE | 2020-08-12 12:42 | XRay Report ---
XR abdomen 1V ap INDICATION / CLINICAL INFORMATION: DOBHOFF PLACEMENT. COMPARISON: None available. FINDINGS/IMPRESSION: Dobbhoff catheter projects over the gastric cardia. Large amount of stool throughout the colon. Nonob structive bowel gas pattern. No free air. Signer Name: Gurjit Owen MD Signed: 08/12/2020 12:38 PM Workstation Name: [email or web address]
[2020-08-12 13:10] LABS: Hepatitis B Surface Antigen Non-Reactive (Negative); Hepatitis C Virus Antibody Non-Reactive (NonReactive)
--- NOTE | 2020-08-12 14:41 | Progress Note ---
Assessment and Plan (1) HFrEF (heart failure with reduced ejection fraction) Current Visit: Yes Status: Chronic (2) Dilated cardiomyopathy Current Visit: Yes Status: Acute (3) Left ventricular apical thrombus Current Visit: Yes Status: Chronic (4) Elevated troponin Current Visit: Yes Status: Acute (5) Chest pain Current Visit: Yes Status: Acute Qualifiers: Chest pain type: unspecified Qualified Code(s): R07.9 - Chest pain, unspecified (6) HTN (hypertension) Current Visit: Yes Status: Chronic (7) Uncontrolled diabetes mellitus Current Visit: Yes Status: Chronic (8) History of CVA (cerebrovascular accident) Current Visit: Yes Status: Chronic Recurrent stroke with poor prognosis (9) Hyponatremia Current Visit: Yes Status: Acute (10) Medical non-compliance Current Visit: Yes Status: Chronic (11) Sinus tachycardia Current Visit: Yes Status: Acu Subjective Date of service: 08/12/20 Principal diagnosis: HF Interval history: Patient is aphasic with recurrent stroke. RN is trying to pass NG tube Objective Vital Signs Temp Pulse Resp BP Pulse Ox 08/12/20 11:09 99.1 F 111 H 18 125/80 98 08/12/20 11:00 111 H 08/12/20 08:06 99.2 F 110 H 16 117/76 100 08/12/20 04:01 98.1 F 129 H 58 H 136/98 98 08/11/20 23:42 97.6 F 95 H 16 99/74 100 08/11/20 22:00 88 08/11/20 20:30 96.7 F L 86 12 106/72 100 08/11/20 17:13 98.0 F 78 16 119/88 100 - Physical Examination General: No Apparent Distress HEENT: Positive: PERRL, Normocephaly, Mucus Membranes Moist Neck: Positive: neck supple, trachea midline, JVD/HJR Neuro: Positive: Grossly Intact Abdomen: Positive: Unremarkable Skin: Negative: Rash, Wound Musculoskeletal: No Pain Extremities: Present: upper extr. pulses, lower extr. pulses, +2 Edema - Labs and Meds Cardiac Enzymes 08/11/20 Range/Units 13:44 AST 717 H (5-40) units/L Comprehensive Metabolic Panel 08/11/20 08/11/20 08/12/20 Range/Units 13:44 19:49 04:18 Sodium 136 L 131 L (137-145) mmol/L Potassium 2.6 L* D 4.4 D (3.6-5.0) mmol/L Chloride 98.0 93.1 L (98-107) mmol/L Carbon Dioxide 24 13 L D (22-30) mmol/L BUN 24 H 29 H (7-17) mg/dL Creatinine 0.7 0.9 (0.6-1.2) mg/dL Glucose 76 168 H 144 H (65-100) mg/dL Calcium 8.0 L 8.3 L (8.4-10.2) mg/dL AST 717 H (5-40) units/L ALT 297 H (7-56) units/L Alkaline Phosphatase 919 H (35-129) units/L Total Protein 5.7 L (6.3-8.2) g/dL Albumin 3.0 L (3.9-5) g/dL - Imaging and Cardiology EKG: report reviewed, image reviewed Echo: report reviewed (EF 10-15%, Severe hypokinesis of the left ventricle. Left ventricular medium thrombus present. Moderate MR. Mild TN. Moderate TR.) - Telemetry EKG Rhythm: Sinus Tachycardia - EKG Sinus rhythms and dysrhythmias: sinus tachycardia
--- NOTE | 2020-08-12 15:24 | Ultrasound Report ---
ULTRASOUND ABDOMEN, LIMITED (RIGHT UPPER QUADRANT) INDICATION / CLINICAL INFORMATION: elevated transaminases. COMPARISON: 08/11/2020 FINDINGS: PANCREAS: Visualized portion shows no significant abnormality. LIVER: No significant abnormality. GALLBLADDER: No significant abnormality. BILE DUCTS: No significant abnormality. Common bile duct measures 1 mm. FREE FLUID: None. ADDITIONAL FINDINGS: [id number] right pleural effusion. IMPRESSION: 1. No significant sonographic abnormality of the right upper quadrant. 2. [id number] right pleural effusion. Signer Name: Armaan Agee MD Signed: 08/12/2020 3:19 PM Workstation Name: [id number]
[2020-08-12] MEDS: LACTULOSE 20 GM/30 ML ORAL LIQD PO SCH (17:31)
[2020-08-13] MEDS: LACTULOSE 20 GM/30 ML ORAL LIQD PO SCH ×4 (00:13→17:19)
[2020-08-13] MEDS: dexAMETHasone 4 MG/ML VIAL IV SCH ×2 (00:13→05:15)
[2020-08-13] MEDS: INSULIN LISPRO 100 UNIT/ML SUB-Q SCH ×5 (00:15→17:19)
[2020-08-13] MEDS: FUROSEMIDE 40 MG/4 ML INJ IV SCH ×2 (05:15→17:19)
[2020-08-13 06:03] LABS: Hematocrit 37.6 % (30.3-42.9); Hemoglobin 11.7 gm/dl (10.1-14.3)
--- NOTE | 2020-08-13 09:59 | Progress Note ---
Assessment and Plan Assessment and plan: (1) NSTEMI (non-ST elevated myocardial infarction) Current Visit: Yes Status: Acute Plan to address problem: We will trend serial cardiac enzymes. Patient placed on daily aspirin, sublingual nitroglycerin as needed for chest pain. She has been started on heparin drip. Consult placed to cardiology for evaluation. (2) CHF (congestive heart failure) Current Visit: Yes Status: Acute Qualifiers: Heart failure type: unspecified Heart failure chronicity: acute on chronic Qualified Code(s): I50.9 - Heart failure, unspecified Plan to address problem: We will monitor daily weights, inputs and outputs will be closely monitored. Patient will be scheduled for echocardiogram. (3) Diabetes mellitus Current Visit: Yes Status: Acute Plan to address problem: Patient placed on sliding scale insulin. Will monitor Accu-Cheks closely. (4) DVT prophylaxis Current Visit: Yes Status: Acute Plan to address problem: Patient currently on anticoagulation. (5) Full code status Current Visit: Yes Status: Acute Plan to address problem: Patient is full code. 08/10/2020 -Patient is admitted for the management of non-STEMI and CHF. Patient is on heparin drip, aspirin, IV Lasix. Monitor in and out. Cardiology is following the patient. Diabetes mellitus with hyperglycemia; blood glucose was above 400 and I started the patient on long-acting insulin, Humalog AC and sliding scale insulin, will follow hemoglobin A1c level. -Continue inpatient care 08/11/20 -Patient had echo showed EF of 10 to 15%, with diastolic dysfunction. Patient had echo in 2015 and had EF of 15 to 20%. Patient started on metoprolol, and lisinopril. Blood pressure is well controlled. Continue with IV Lasix. Cardiology is following and will do ischemic work-up on Friday. Patient's hemoglobin A1c is 15.1, has hyperglycemia, and started on Lantus and sliding scale insulin and AC Humalog. Blood pressure this morning was 64 and I discontinued the AC Humalog, monitor blood sugar and adjust insulin as needed. -Disposition continue inpatient care. -I have been notified with nursing staff that Ms Perez has altered mental status, I went and evaluated her and patient was altered. Patient has strong pulse, was on oxygen and saturation was ok. No fever. Blood sugar was checked and was 135 but earlier patient had hypoglycemia and was treated with dextrose and insulin d iscontinued put on D5w. I called code stroke and stat CT, head, CTA head & neck was done and was unrevealing. MRI was done and showed extensive acute infarction. Neurology was consulted and discussed with Dr Flores and she said continue with heparin drip, no other recommendations. she said SAL but patient had LV thrombus on TTE and there is no need to It. patient was evaluated by cardiology Echo showed EF 10-15%, LV thrombus and patient is on heparin drip and other appropriate CHF treatment. Patient was not following with physician and was not taking any medications and her a1c was 15.1. Patient was diagnosed with CHF with EF of 10-15% 4 years ago and didn't have any follow ups and she said donovan has no insurance. I called and discussed with her Spouse Priya over the phone. She said patient doesn't want resucitation or intubation. she now DNR/DNI. Priya Riley @[phone]. Prognosis is very poor. 08/12/20 -Extensive acute infarction. Acute on chronic systolic CHF, left ventricular thrombus. Patient is on heparin drip. Cardiology is following. Neurology recommendations noted. Prognosis is poor. Will follow. Patient is DNR/DNI. If no improvement in her mental status I will put OG tube feeding for now. Management plan discussed with our spouse yesterday. 08/13/2020; extensive acute CVA, neurology consult appreciated. Acute on chronic systolic CHF, left ventricular apical thrombus. Continue with heparin drip. Cardiology is following the patient. Patient is DNR/DNI. Patient is on OG tube feeding. Prognosis is poor. Discussed with her spouse Priya Riley @[phone]. History Interval history: Patient was seen and evaluated this morning Patient is noncommunicative, comatose Hospitalist Physical - Physical exam Narrative exam: On intranasal oxygen The patient appeared well nourished and normally developed. Vital signs as documented. Head exam is unremarkable. No scleral icterus . Neck is with jugular venous distension Lungs are clear to auscultation. Cardiac exam reveals regular rate and Rhythm. Tachycardic Abdominal exam reveals normal bowel sounds, nontender, no organomegaly. Extremities are nonedematous and both femoral and pedal pulses are normal. 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 - Constitutional Vitals: Temp Pulse Resp BP Pulse Ox 98.8 F 110 H 16 144/99 97 08/13/20 07:56 08/13/20 07:56 08/13/20 07:56 08/13/20 07:56 08/13/20 07:56 General appearance: Present: no acute distress HEART Score - HEART Score EKG: Non-specific Age: 45-65 Risk factors: > 3 risk factors or hx of atherosclerotic disease Troponin: Troponin T 0.056 ng/mL (0.00-0.029) H 08/10/20 07:39 Troponin: > 3x normal limit Results - Labs CBC & Chem 7: 08/13/20 05:27 08/13/20 11:22 Labs: Laboratory Last Values WBC 10.2 K/mm3 (4.5-11.0) 08/11/20 05:15 RBC 4.97 M/mm3 (3.65-5.03) 08/11/20 05:15 Hgb 11.7 gm/dl (10.1-14.3) 08/13/20 05:27 Hct 37.6 % (30.3-42.9) 08/13/20 05:27 MCV 78 fl (79-97) L 08/11/20 05:15 MCH 24 pg (28-32) L 08/11/20 05:15 MCHC 31 % (30-34) 08/11/20 05:15 RDW 18.9 % (13.2-15.2) H 08/11/20 05:15 Plt Count 344 K/mm3 (140-440) 08/13/20 05:27 Lymph % (Auto) 28.3 % (13.4-35.0) 08/11/20 05:15 [place] % (Auto) 10.8 % (0.0-7.3) H 08/11/20 05:15 Eos % (Auto) 0.4 % (0.0-4.3) 08/11/20 05:15 Baso % (Auto) 1.2 % (0.0-1.8) 08/11/20 05:15 Lymph # (Auto) 2.9 K/mm3 (1.2-5.4) 08/11/20 05:15 [place] # (Auto) 1.1 K/mm3 (0.0-0.8) H 08/11/20 05:15 Eos # (Auto) 0.0 K/mm3 (0.0-0.4) 08/11/20 05:15 Baso # (Auto) 0.1 K/mm3 (0.0-0.1) 08/11/20 05:15 Seg Neutrophils % 59.3 % (40.0-70.0) 08/11/20 05:15 Seg Neutrophils # 6.0 K/mm3 (1.8-7.7) 08/11/20 05:15 PT 17.1 Sec. (12.2-14.9) H 08/11/20 05:15 INR 1.40 (0.87-1.13) H 08/11/20 05:15 APTT 27.4 Sec. (24.2-36.6) 08/09/20 21:12 Heparin Anti-Xa Level 0.31 U.I./ml (0.3-0.7) 08/12/20 22:55 Sodium 131 mmol/L (137-145) L 08/12/20 04:18 Potassium 4.4 mmol/L (3.6-5.0) D 08/12/20 04:18 Chloride 93.1 mmol/L (98-107) L 08/12/20 04:18 Carbon Dioxide 13 mmol/L (22-30) L D 08/12/20 04:18 Anion Gap 29 mmol/L 08/12/20 04:18 BUN 29 mg/dL (7-17) H 08/12/20 04:18 Creatinine 0.9 mg/dL (0.6-1.2) 08/12/20 04:18 Estimated GFR > 60 ml/min 08/12/20 04:18 BUN/Creatinine Ratio 32 % 08/12/20 04:18 Glucose 144 mg/dL (65-100) H 08/12/20 04:18 POC Glucose 325 mg/dL (70-105) H 08/13/20 06:12 Hemoglobin A1c 15.1 % (4-6) H 08/10/20 11:38 Calcium 8.3 mg/dL (8.4-10.2) L 08/12/20 04:18 Magnesium 1.60 mg/dL (1.7-2.3) L 08/11/20 18:08 Total Bilirubin 2.70 mg/dL (0.1-1.2) H 08/11/20 13:44 Direct Bilirubin 1.3 mg/dL (0-0.2) H 08/09/20 17:28 Indirect Bilirubin 1.1 mg/dL 08/09/20 17:28 AST 717 units/L (5-40) H 08/11/20 13:44 ALT 297 units/L (7-56) H 08/11/20 13:44 Alkaline Phosphatase 919 units/L (35-129) H 08/11/20 13:44 Ammonia 103.0 umol/L (25-60) H 08/11/20 13:44 Troponin T 0.056 ng/mL (0.00-0.029) H 08/10/20 07:39 NT-Pro-B Natriuret Pep 1579 pg/mL (0-450) H 08/09/20 17:28 Total Protein 5.7 g/dL (6.3-8.2) L 08/11/20 13:44 Albumin 3.0 g/dL (3.9-5) L 08/11/20 13:44 Albumin/Globulin Ratio 1.1 % 08/11/20 13:44 Triglycerides 79 mg/dL (2-149) 08/09/20 17:28 Cholesterol 189 mg/dL (50-199) 08/09/20 17:28 LDL Cholesterol Direct 104 mg/dL (50-130) 08/09/20 17:28 HDL Cholesterol 91 mg/dL (40-59) H 08/09/20 17:28 Cholesterol/HDL Ratio 2.07 % 08/09/20 17:28 Lipase 49 units/L (13-60) 08/09/20 17:28 Urine Color Yellow (Yellow) 08/09/20 Unknown Urine Turbidity Clear (Clear) 08/09/20 Unknown Urine pH 6.0 (5.0-7.0) 08/09/20 Unknown Ur Specific [place] 1.040 (1.003-1.030) H 08/09/20 Unknown Urine Protein 100 mg/dl mg/dL (Negative) 08/09/20 Unknown Urine Glucose (UA) >=500 mg/dL (Negative) 08/09/20 Unknown Urine Ketones 20 mg/dL (Negative) 08/09/20 Unknown Urine Blood Neg (Negative) 08/09/20 Unknown Urine Nitrite Neg (Negative) 08/09/20 Unknown Urine Bilirubin Neg (Negative) 08/09/20 Unknown Urine Urobilinogen 2.0 mg/dL (<2.0) 08/09/20 Unknown Ur Leukocyte Esterase Neg (Negative) 08/09/20 Unknown Urine WBC (Auto) 5.0 /HPF (0.0-6.0) 08/09/20 Unknown Urine RBC (Auto) 8.0 /HPF (0.0-6.0) 08/09/20 Unknown U Epithel Cells (Auto) 4.0 /HPF (0-13.0) 08/09/20 Unknown Hepatitis A IgM Ab Non-reactive (NonReactive) 08/12/20 11:56 Hep Bs Antigen Non-reactive (Negative) 08/12/20 11:56 Hep B Core IgM Ab Non-reactive (NonReactive) 08/12/20 11:56 Hepatitis C Antibody Non-reactive (NonReactive) 08/12/20 11:56 Zazueta/IV: Voiding Method External Female Catheter Active Medications - Current Medications Current Medications: Generic Name Dose Route Start Last Admin Trade Name Freq PRN Reason Stop Dose Admin Lipase/Protease/Amylase 1 each 08/12/20 12:36 Lipase 10,500/Protease 25,000/Amylase 43,750 (Units) Dr Ospina FEEDTUBE PRN PRN For Clogged Feeding Tube Aspirin 81 mg 08/11/20 10:00 08/12/20 10:24 Aspirin 81 Mg Tab Chew PO Not Given QDAY FESTUS Atorvastatin Calcium 40 mg 08/12/20 22:00 08/12/20 21:56 Atorvastatin 40 Mg Tab PO 40 mg QHS FESTUS Administration Dextrose 0 ml 08/10/20 00:43 08/11/20 19:32 Dextrose 50% In Water (25gm) 50 Ml Syringe IV 50 ml Q30MIN PRN Administration Hypoglycemia Protocol Furosemide 40 mg 08/10/20 06:00 08/13/20 05:15 Furosemide 40 Mg/4 Ml Inj IV 40 mg BID@0600,1800 FESTUS Administration Heparin Sodium/Sodium Chloride 25,000 unit in 500 mls @ 20 mls/hr 08/09/20 22:00 08/12/20 23:46 Heparin/ 0.45% Nacl-25,000 Unit/500 Ml IV 833 units/hr TITRATE FESTUS 16.66 mls/hr Titration Protocol 1,000 UNITS/HR Dextrose 1,000 mls @ 75 mls/hr 08/11/20 16:00 08/12/20 18:37 D5w IV 75 mls/hr DIRECT FESTUS Administration Insulin Glargine 10 units 08/14/20 09:54 Insulin Glargine 100 Units/Ml SUB-Q QAMDIAB [facility] Insulin Human Lispro 0 unit 08/12/20 00:00 08/13/20 06:16 Insulin Lispro 100 Unit/Ml SUB-Q 6 unit Q6HR FESTUS Administration Protocol Lactulose 20 gm 08/12/20 18:00 08/13/20 05:15 Lactulose 20 Gm/30 Ml Oral Liqd PO 20 gm Q6HR FESTUS Administration Lisinopril 5 mg 08/11/20 10:00 08/12/20 10:25 Lisinopril 5 Mg Tab PO Not Given QDAY [facility] Magnesium Hydroxide 30 ml 08/10/20 00:43 Magnesium Hydroxide (Mom) Oral Liqd Udc PO Q4H PRN Constipation Metoprolol Tartrate 50 mg 08/11/20 22:00 08/12/20 21:56 Metoprolol Tartrate 50 Mg Tab PO 50 mg BID FESTUS Administration Nitroglycerin 0.4 mg 08/10/20 00:43 Nitroglycerin 0.4 Mg Tab Subl SL Q5M PRN Chest Pain Ondansetron HCl 4 mg 08/10/20 00:43 08/10/20 23:32 Ondansetron 4 Mg/2 Ml Inj IV 4 mg Q8H PRN Administration Nausea And Vomiting Simple Syrup 15 ml 08/12/20 12:36 Simple Syrup 15 Ml FEEDTUBE PRN PRN Hypoglycemia Simple Syrup 30 ml 08/12/20 12:36 Simple Syrup 15 Ml FEEDTUBE PRN PRN Hypoglycemia Sodium Bicarbonate 325 mg 08/12/20 12:36 Sodium Bicarbonate 325 Mg Tab FEEDTUBE PRN PRN For Clogged Feeding Tube Sodium Chloride 10 ml 08/10/20 10:00 08/12/20 21:57 Sodium Chloride 0.9% 10 Ml Flush Syringe IV 10 ml BID FESTUS Administration Sodium Chloride 10 ml 08/10/20 00:43 Sodium Chloride 0.9% 10 Ml Flush Syringe IV PRN PRN LINE FLUSH Nutrition/Malnutrition Assess - Dietary Evaluation Nutrition/Malnutrition Findings: Nutrition Notes Start: 08/10/20 1 1:18 Freq: Status: Active Protocol: Document 08/12/20 12:25 TALITA (Rec: 08/12/20 12:36 TALITA [id number]) Nutrition Notes Need for Assessment generated from: MD Order Initial or Follow up Assessment Current Diagnosis Diabetes,Heart Failure Other Pertinent Diagnosis NSTEMI, extensive acute infarction Current Diet NPO Labs/Tests Na 131 A1C 15.1 Pertinent Medications Decadron, D5W at 75ml/hr Height 5 ft 5 in Weight 58.9 kg [place] Body Weight (kg) 56.81 BMI 21.6 Weight Status Appropriate Subjective/Other Information RD consulted for TF. Pt with poor prognosis. Burn Absent Trauma Absent #1 Nutrition Diagnosis Inadequate oral intake Etiology acute infarction As Evidenced by Signs and Symptoms pt NPO Is patient on ventilator? No Is Patient Ambulatory and/or Out of Bed No REE-([facility]-confined to bed) 1461.852 Calculation Used for Recommendations [facility] Additional Notes Pro needs 0.8-1g/k-59g/ day Fluid needs 1ml/kcal Nutrition Intervention Nutrition Support: Glucerna 1.2 at 40ml/hr with 65ml water flush q4h. Kcal 1,152 Protein (gm) 58 Carbohydrates (gm) 110 Fat (gm) 58 Fluid (mL) 773 Fiber (gm) 15 Goal #1 TF tolerance Goal #2 TF at goal rate to meet at least 75% energy and pro needs Anticipated Discharge Needs: Unable to identify at this time Follow-Up By: 08/14/20 Additional Comments F/U: new TF
[2020-08-13] MEDS: METOPROLOL TARTRATE 50 MG TAB PO SCH ×2 (10:46→21:01)
[2020-08-13] MEDS: LISINOPRIL 5 MG TAB PO SCH (10:47)
[2020-08-13] MEDS: ASPIRIN 81 MG TAB CHEW PO SCH (10:47)
--- NOTE | 2020-08-13 11:21 | Cat Scan Report ---
CT head/brain wo con INDICATION / CLINICAL INFORMATION: 50 years Female; CVA. TECHNIQUE: Routine CT head without contrast. All CT scans at this location are performed using CT dos e reduction for ALARA by means of automated exposure control. COMPARISON: The study is compared to the previous CT and MRI of 08/11/2020. FINDINGS: BRAIN / INTRACRANIAL CONTENTS: There have been interval evolutionary changes of the infarcts along th e border zone vascular distributions of the cerebral hemispheres from the earlier exams at. The findi ngs again most notable on the left including the left basal ganglia with developing edema measuring 2 .3 cm in greatest transverse dimension. There are also now notable findings along the higher cerebral convexities particularly at the frontoparietal junctions. Smaller foci are seen within the right cer ebellum and also correlate with the earlier MRI. There is no clear CT evidence of acute intrarenal he morrhage on the current exam. There are are continued more chronic appearing ischemic changes adjacent to the posterior lateral jonathan tricles, greater on the right. There is developing mild mass effect upon the left lateral ventricle w ith slight midline shift. ORBITS: No significant abnormality of visualized orbits. SINUSES / MASTOIDS: No significant abnormality in the visualized paranasal sinuses or mastoid air david ls. CRANIOCERVICAL JUNCTION: No significant abnormality. ADDITIONAL FINDINGS: None. IMPRESSION: 1. There are evolving infarcts, most notably along the vascular border zone distributions of the cere bral hemispheres, greater on the left with involvement of the left corpus stratum as detailed above. 2. There is no clear CT evidence of acute intracranial hemorrhage on the current exam. Signer Name: Jax Snell MD Signed: 08/13/2020 11:16 AM Workstation Name: [id number]
[2020-08-13 12:21] LABS: Albumin 2.4 g/dL (3.9-5); BUN/Creatinine Ratio 41; Blood Urea Nitrogen 33 mg/dL (7-17); Calcium 7.9 mg/dL (8.4-10.2); Hemolysis Index 0
[2020-08-13 12:41] LABS: Alanine Aminotransferase 999 units/L (7-56)
[2020-08-13] MEDS ORDERED: POTASSIUM CHLORIDE 20 MEQ PACKET FEEDTUBE ONE (13:39)
--- NOTE | 2020-08-13 15:06 | Progress Note ---
Assessment and Plan (1) HFrEF (heart failure with reduced ejection fraction) Current Visit: Yes Status: Chronic (2) Dilated cardiomyopathy Current Visit: Yes Status: Acute Cancel coronary arteriogram (3) Left ventricular apical thrombus Current Visit: Yes Status: Chronic (4) Elevated troponin Current Visit: Yes Status: Acute (5) Chest pain Current Visit: Yes Status: Acute Qualifiers: Chest pain type: unspecified Qualified Code(s): R07.9 - Chest pain, unspecified (6) HTN (hypertension) Current Visit: Yes Status: Chronic (7) Uncontrolled diabetes mellitus Current Visit: Yes Status: Chronic (8) History of CVA (cerebrovascular accident) Current Visit: Yes Status: Chronic Recurrent stroke with poor prognosis (9) Hyponatremia Current Visit: Yes Status: Acute (10) Medical non-compliance Current Visit: Yes Status: Chronic (11) Sinus tachycardia Current Visit: Yes Status: Acu Subjective Date of service: 08/13/20 Principal diagnosis: HF Interval history: Patient is stuporous. She has recurrent stroke. Has NG tube. Patient is a DNR. At this point felt that she does not need cardiac catheterization. Objective Vital Signs Temp Pulse Resp BP Pulse Ox 08/13/20 12:00 94 H 08/13/20 07:56 98.8 F 110 H 16 144/99 97 08/13/20 04:22 98.0 F 101 H 22 130/90 97 08/12/20 23:49 97.3 F L 89 20 106/71 97 08/12/20 22:00 121 H 08/12/20 21:56 124 H 147/94 08/12/20 20:06 98.0 F 08/12/20 19:47 124 H 24 147/94 97 08/12/20 16:39 98.3 F 112 H 16 136/89 97 - Physical Examination General: No Apparent Distress HEENT: Positive: PERRL, Normocephaly, Mucus Membranes Moist Neck: Positive: neck supple, trachea midline, JVD/HJR Neuro: Positive: Grossly Intact Abdomen: Positive: Unremarkable Skin: Negative: Rash, Wound Musculoskeletal: No Pain Extremities: Present: upper extr. pulses, lower extr. pulses, +2 Edema - Labs and Meds Cardiac Enzymes 08/13/20 Range/Units 11:22 AST 1446 H (5-40) units/L CBC 08/13/20 Range/Units 05:27 Hgb 11.7 (10.1-14.3) gm/dl Hct 37.6 (30.3-42.9) % Plt Count 344 (140-440) K/mm3 Comprehensive Metabolic Panel 08/13/20 Range/Units 11:22 Sodium 133 L (137-145) mmol/L Potassium 3.1 L D (3.6-5.0) mmol/L Chloride 93.5 L (98-107) mmol/L Carbon Dioxide 27 D (22-30) mmol/L BUN 33 H (7-17) mg/dL Creatinine 0.8 (0.6-1.2) mg/dL Glucose 357 H (65-100) mg/dL Calcium 7.9 L (8.4-10.2) mg/dL AST 1446 H (5-40) units/L ALT 999 H (7-56) units/L Alkaline Phosphatase 841 H (35-129) units/L Total Protein 5.0 L (6.3-8.2) g/dL Albumin 2.4 L (3.9-5) g/dL - Imaging and Cardiology EKG: report reviewed, image reviewed Echo: report reviewed (EF 10-15%, Severe hypokinesis of the left ventricle. Left ventricular medium thrombus present. Moderate MR. Mild MS. Moderate TR.) - EKG Sinus rhythms and dysrhythmias: sinus tachycardia
[2020-08-13] MEDS: ACETAMINOPHEN 325 MG/10.15 ML ORAL LIQD UNIT DOSE FEEDTUBE PRN (21:02)
[2020-08-14] MEDS: INSULIN LISPRO 100 UNIT/ML SUB-Q SCH ×4 (00:02→17:54)
[2020-08-14] MEDS: LACTULOSE 20 GM/30 ML ORAL LIQD PO SCH ×5 (00:02→18:27)
[2020-08-14] MEDS: FUROSEMIDE 40 MG/4 ML INJ IV SCH (05:32)
[2020-08-14] MEDS: ACETAMINOPHEN 325 MG/10.15 ML ORAL LIQD UNIT DOSE FEEDTUBE PRN (05:33)
[2020-08-14 05:47] LABS: Albumin 2.3 g/dL (3.9-5); BUN/Creatinine Ratio 45; Bilirubin,Direct 1.5 mg/dL (0-0.2); Blood Urea Nitrogen 36 mg/dL (7-17); Calcium 7.7 mg/dL (8.4-10.2); Hemolysis Index 6
[2020-08-14 05:55] LABS: INR 1.58 (0.87-1.13)
[2020-08-14 06:12] LABS: Alanine Aminotransferase 944 units/L (7-56)
[2020-08-14] MEDS: HEPARIN/ 0.45% NACL DRIP 25,000 UNIT/500 ML BAG IV SCH ×2 (06:12→23:16)
[2020-08-14 06:45] LABS: Hematocrit 34.2 % (30.3-42.9); Hemoglobin 10.6 gm/dl (10.1-14.3); Mean Corpuscular HGB Conc 31 % (30-34); Mean Corpuscular Volume 76 fl (79-97); Platelet Count 330 K/mm3 (140-440); Red Blood Count 4.49 M/mm3 (3.65-5.03); Red Cell Distribution Width 19.4 % (13.2-15.2)
[2020-08-14] MEDS ORDERED: HEPARIN 10,000 UNITS/10 ML VIAL IV PRN (08:24)
[2020-08-14] MEDS: ASPIRIN 81 MG TAB CHEW PO SCH (09:06)
[2020-08-14 09:47] LABS: Anisocytosis 1+; Hypochromasia 1+; Total Cells Counted 100
[2020-08-14 09:48] LABS: Hypersegmented Neutrophils Rare; Platelet Estimate Cons
[2020-08-14 09:50] LABS: Hemoglobin 11.8 gm/dl (10.1-14.3)
[2020-08-14] MEDS ORDERED: INSULIN GLARGINE 100 UNITS/ML SUB-Q SCH (09:54)
[2020-08-14] MEDS ORDERED: ENOXAPARIN 100 MG/1 ML INJ SUB-Q SCH (10:00)
[2020-08-14 10:04] LABS: INR 1.46 (0.87-1.13)
[2020-08-14 10:12] LABS: Partial Thromboplastin Time 88.7 Sec. (24.2-36.6)
[2020-08-14] MEDS: LISINOPRIL 5 MG TAB PO SCH (10:18)
[2020-08-14] MEDS: METOPROLOL TARTRATE 50 MG TAB PO SCH ×2 (10:18→23:17)
[2020-08-14] MEDS: INSULIN GLARGINE 100 UNITS/ML SUB-Q SCH (11:57)
--- NOTE | 2020-08-14 12:08 | Progress Note ---
Assessment and Plan Assessment and plan: (1) NSTEMI (non-ST elevated myocardial infarction) Current Visit: Yes Status: Acute Plan to address problem: We will trend serial cardiac enzymes. Patient placed on daily aspirin, sublingual nitroglycerin as needed for chest pain. She has been started on heparin drip. Consult placed to cardiology for evaluation. (2) CHF (congestive heart failure) Current Visit: Yes Status: Acute Qualifiers: Heart failure type: unspecified Heart failure chronicity: acute on chronic Qualified Code(s): I50.9 - Heart failure, unspecified Plan to address problem: We will monitor daily weights, inputs and outputs will be closely monitored. Patient will be scheduled for echocardiogram. (3) Diabetes mellitus Current Visit: Yes Status: Acute Plan to address problem: Patient placed on sliding scale insulin. Will monitor Accu-Cheks closely. (4) CVA (5) severe combined metabolic encephalopathy with presumed hypoxic encephalopat hy (7) DVT prophylaxis Current Visit: Yes Status: Acute Plan to address problem: Patient currently on anticoagulation. (5) Full code status Current Visit: Yes Status: Acute Plan to address problem: Patient is full code. 08/10/2020 -Patient is admitted for the management of non-STEMI and CHF. Patient is on heparin drip, aspirin, IV Lasix. Monitor in and out. Cardiology is following the patient. Diabetes mellitus with hyperglycemia; blood glucose was above 400 and I started the patient on long-acting insulin, Humalog AC and sliding scale insulin, will follow hemoglobin A1c level. -Continue inpatient care 08/11/20 -Patient had echo showed EF of 10 to 15%, with diastolic dysfunction. Patient had echo in 2015 and had EF of 15 to 20%. Patient started on metoprolol, and lisinopril. Blood pressure is well controlled. Continue with IV Lasix. Cardiology is following and will do ischemic work-up on Friday. Patient's hemoglobin A1c is 15.1, has hyperglycemia, and started on Lantus and sliding scale insulin and AC Humalog. Blood pressure this morning was 64 and I discontinued the AC Humalog, monitor blood sugar and adjust insulin as needed. -Disposition continue inpatient care. -I have been notified with nursing staff that Ms Perez has altered mental status, I went and evaluated her and patient was altered. Patient has strong pulse, was on oxygen and saturation was ok. No fever. Blood sugar was checked and was 135 but earlier patient had hypoglycemia and was treated with dextrose and insulin discontinued put on D5w. I called code stroke and stat CT, head, CTA head & neck was done and was unrevealing. MRI was done and showed extensive acute infarction. Neurology was consulted and discussed with Dr Flores and she said continue with heparin drip, no other recommendations. she said SAL but patient had LV thrombus on TTE and there is no need to It. patient was evaluated by cardiology Echo showed EF 10-15%, LV thrombus and patient is on heparin drip and other appropriate CHF treatment. Patient was not following with physician and was not taking any medications and her a1c was 15.1. Patient was diagnosed with CHF with EF of 10-15% 4 years ago and didn't have any follow ups and she said donovan has no insurance. I called and discussed with her Spouse Priya over the phone. She said patient doesn't want resucitation or intubation. she now DNR/DNI. Priya Riley @[phone]. Prognosis is very poor. 08/12/20 -Extensive acute infarction. Acute on chronic systolic CHF, left ventricular t hrombus. Patient is on heparin drip. Cardiology is following. Neurology recommendations noted. Prognosis is poor. Will follow. Patient is DNR/DNI. If no improvement in her mental status I will put OG tube feeding for now. Management plan discussed with our spouse yesterday. 08/13/2020; extensive acute CVA, neurology consult appreciated. Acute on chronic systolic CHF, left ventricular apical thrombus. Continue with heparin drip. Cardiology is following the patient. Patient is DNR/DNI. Patient is on OG tube feeding. Prognosis is poor. Discussed with her spouse Priya Riley @. elevated liver enzymes; trending up. Ammonia level is going up despite lactulose. 08/14: Patient remains grossly unresponsive. I did discuss with patient's spouse Priya I did update her on all the findings so far which includes the CVA and her unresponsiveness she verbalized understanding. Also discussed advance care planning including consideration for hospice she would like to see her before making the decision 35 minutes spent. Setting communicated also to the community case manager. I also discussed with the imaging services director per their recommendation no further input is beneficial from their standpoint. History Interval history: Patient seen and examined, remains grossly unresponsive. Hospitalist Physical - Physical exam Narrative exam: On intranasal oxygen The patient appeared well nourished and normally developed. Otherwise unresponsive Vital signs as documented. Head exam is unremarkable. No scleral icterus . Neck is with jugular venous distension Lungs are clear to auscultation. Cardiac exam reveals regular rate and Rhythm. Tachycardic Abdominal exam reveals normal bowel sounds, nontender, no organomegaly. Extremities are nonedematous and both femoral and pedal pulses are normal. 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: Altered mental status - Constitutional Vitals: Temp Pulse Resp BP Pulse Ox 100.0 F H 82 18 98/56 95 08/14/20 07:36 08/14/20 10:18 08/14/20 10:00 08/14/20 10:18 08/14/20 10:00 General appearance: Present: no acute distress HEART Score - HEART Score EKG: Non-specific Age: 45-65 Risk factors: > 3 risk factors or hx of atherosclerotic disease Troponin: Troponin T 0.056 ng/mL (0.00-0.029) H 08/10/20 07:39 Troponin: > 3x normal limit Results - Labs CBC & Chem 7: 08/14/20 09:02 08/14/20 04:42 Labs: Laboratory Last Values WBC 16.4 K/mm3 (4.5-11.0) H 08/14/20 04:42 RBC 4.49 M/mm3 (3.65-5.03) 08/14/20 04:42 Hgb 11.8 gm/dl (10.1-14.3) 08/14/20 09:02 Hct 38.0 % (30.3-42.9) 08/14/20 09:02 MCV 76 fl (79-97) L 08/14/20 04:42 MCH 24 pg (28-32) L 08/14/20 04:42 MCHC 31 % (30-34) 08/14/20 04:42 RDW 19.4 % (13.2-15.2) H 08/14/20 04:42 Plt Count 299 K/mm3 (140-440) 08/14/20 09:02 Lymph % (Auto) 28.3 % (13.4-35.0) 08/11/20 05:15 [place] % (Auto) 10.8 % (0.0-7.3) H 08/11/20 05:15 Eos % (Auto) 0.4 % (0.0-4.3) 08/11/20 05:15 Baso % (Auto) 1.2 % (0.0-1.8) 08/11/20 05:15 Lymph # (Auto) 2.9 K/mm3 (1.2-5.4) 08/11/20 05:15 [place] # (Auto) 1.1 K/mm3 (0.0-0.8) H 08/11/20 05:15 Eos # (Auto) 0.0 K/mm3 (0.0-0.4) 08/11/20 05:15 Baso # (Auto) 0.1 K/mm3 (0.0-0.1) 08/11/20 05:15 Add Manual Diff Complete 08/14/20 04:42 Total Counted 100 08/14/20 04:42 Seg Neutrophils % Locator Specialist 08/14/20 04:42 Seg Neuts % (Manual) 96.0 % (40.0-70.0) H 08/14/20 04:42 Lymphocytes % (Manual) 1.0 % (13.4-35.0) L 08/14/20 04:42 Monocytes % (Manual) 3.0 % (0.0-7.3) 08/14/20 04:42 Nucleated RBC % Not Reportable 08/14/20 04:42 Seg Neutrophils # 6.0 K/mm3 (1.8-7.7) 08/11/20 05:15 Seg Neutrophils # Man 15.7 K/mm3 (1.8-7.7) H 08/14/20 04:42 Band Neutrophils # 0.0 K/mm3 08/14/20 04:42 Lymphocytes # (Manual) 0.2 K/mm3 (1.2-5.4) L 08/14/20 04:42 Abs React Lymphs (Man) 0.0 K/mm3 08/14/20 04:42 Monocytes # (Manual) 0.5 K/mm3 (0.0-0.8) 08/14/20 04:42 Eosinophils # (Manual) 0.0 K/mm3 (0.0-0.4) 08/14/20 04:42 Basophils # (Manual) 0.0 K/mm3 (0.0-0.1) 08/14/20 04:42 Metamyelocytes # 0.0 K/mm3 08/14/20 04:42 Myelocytes # 0.0 K/mm3 08/14/20 04:42 Promyelocytes # 0.0 K/mm3 08/14/20 04:42 Blast Cells # 0.0 K/mm3 08/14/20 04:42 WBC Morphology Not Reportable 08/14/20 04:42 Hypersegmented Neuts Rare 08/14/20 04:42 Hyposegmented Neuts Not Reportable 08/14/20 04:42 Hypogranular Neuts Not Reportable 08/14/20 04:42 Smudge Cells Not Reportable 08/14/20 04:42 Toxic Granulation Not Reportable 08/14/20 04:42 Toxic Vacuolation Not Reportable 08/14/20 04:42 Dohle Bodies Not Reportable 08/14/20 04:42 Pelger-Huet Anomaly Not Reportable 08/14/20 04:42 Fadumo Rods Not Reportable 08/14/20 04:42 Platelet Estimate Cons 08/14/20 04:42 Clumped Platelets Not Reportable 08/14/20 04:42 Plt Clumps, EDTA Not Reportable 08/14/20 04:42 Large Platelets Not Reportable 08/14/20 04:42 Giant Platelets Not Reportable 08/14/20 04:42 Platelet Satelliting Not Reportable 08/14/20 04:42 Plt Morphology Comment Not Reportable 08/14/20 04:42 RBC Morphology Not Reportable 08/14/20 04:42 Dimorphic RBCs Not Reportable 08/14/20 04:42 Polychromasia Not Reportable 08/14/20 04:42 Hypochromasia 1+ 08/14/20 04:42 Poikilocytosis Not Reportable 08/14/20 04:42 Anisocytosis 1+ 08/14/20 04:42 Microcytosis Not Reportable 08/14/20 04:42 Macrocytosis Not Reportable 08/14/20 04:42 Spherocytes Not Reportable 08/14/20 04:42 Pappenheimer Bodies Not Reportable 08/14/20 04:42 Sickle Cells Not Reportable 08/14/20 04:42 Target Cells Not Reportable 08/14/20 04:42 Tear Drop Cells Not Reportable 08/14/20 04:42 Ovalocytes Not Reportable 08/14/20 04:42 Helmet Cells Not Reportable 08/14/20 04:42 [place] Bodies Not Reportable 08/14/20 04:42 [place] Rings Not Reportable 08/14/20 04:42 [place] Cells Not Reportable 08/14/20 04:42 Bite Cells Not Reportable 08/14/20 04:42 Crenated Cell Not Reportable 08/14/20 04:42 Elliptocytes Not Reportable 08/14/20 04:42 Acanthocytes (Spur) Not Reportable 08/14/20 04:42 Rouleaux Not Reportable 08/14/20 04:42 Hemoglobin C Crystals Not Reportable 08/14/20 04:42 Schistocytes Not Reportable 08/14/20 04:42 Malaria parasites Not Reportable 08/14/20 04:42 Mauro Bodies Not Reportable 08/14/20 04:42 Hem Pathologist Commnt No 08/14/20 04:42 PT 17.7 Sec. (12.2-14.9) H 08/14/20 09:02 INR 1.46 (0.87-1.13) H 08/14/20 09:02 APTT 88.7 Sec. (24.2-36.6) H* 08/14/20 09:02 Heparin Anti-Xa Level 0.43 U.I./ml (0.3-0.7) 08/13/20 23:54 Sodium 136 mmol/L (137-145) L 08/14/20 04:42 Potassium 3.4 mmol/L (3.6-5.0) L 08/14/20 04:42 Chloride 98.6 mmol/L (98-107) 08/14/20 04:42 Carbon Dioxide 25 mmol/L (22-30) 08/14/20 04:42 Anion Gap 16 mmol/L 08/14/20 04:42 BUN 36 mg/dL (7-17) H 08/14/20 04:42 Creatinine 0.8 mg/dL (0.6-1.2) 08/14/20 04:42 Estimated GFR > 60 ml/min 08/14/20 04:42 BUN/Creatinine Ratio 45 % 08/14/20 04:42 Glucose 407 mg/dL (65-100) H 08/14/20 04:42 POC Glucose 362 mg/dL (70-105) H 08/14/20 11:56 Hemoglobin A1c 15.1 % (4-6) H 08/10/20 11:38 Calcium 7.7 mg/dL (8.4-10.2) L 08/14/20 04:42 Magnesium 1.60 mg/dL (1.7-2.3) L 08/11/20 18:08 Total Bilirubin 2.50 mg/dL (0.1-1.2) H 08/14/20 04:42 Direct Bilirubin 1.5 mg/dL (0-0.2) H 08/14/20 04:42 Indirect Bilirubin 1.0 mg/dL 08/14/20 04:42 AST 1007 units/L (5-40) H 08/14/20 04:42 ALT 944 units/L (7-56) H 08/14/20 04:42 Alkaline Phosphatase 841 units/L (35-129) H 08/14/20 04:42 Ammonia 96.0 umol/L (25-60) H 08/14/20 04:42 Troponin T 0.056 ng/mL (0.00-0.029) H 08/10/20 07:39 NT-Pro-B Natriuret Pep 1579 pg/mL (0-450) H 08/09/20 17:28 Total Protein 5.1 g/dL (6.3-8.2) L 08/14/20 04:42 Albumin 2.3 g/dL (3.9-5) L 08/14/20 04:42 Albumin/Globulin Ratio 0.8 % 08/14/20 04:42 Triglycerides 79 mg/dL (2-149) 08/09/20 17:28 Cholesterol 189 mg/dL (50-199) 08/09/20 17:28 LDL Cholesterol Direct 104 mg/dL (50-130) 08/09/20 17:28 HDL Cholesterol 91 mg/dL (40-59) H 08/09/20 17:28 Cholesterol/HDL Ratio 2.07 % 08/09/20 17:28 Lipase 49 units/L (13-60) 08/09/20 17:28 Urine Color Yellow (Yellow) 08/09/20 Unknown Urine Turbidity Clear (Clear) 08/09/20 Unknown Urine pH 6.0 (5.0-7.0) 08/09/20 Unknown Ur Specific [place] 1.040 (1.003-1.030) H 08/09/20 Unknown Urine Protein 100 mg/dl mg/dL (Negative) 08/09/20 Unknown Urine Glucose (UA) >=500 mg/dL (Negative) 08/09/20 Unknown Urine Ketones 20 mg/dL (Negative) 08/09/20 Unknown Urine Blood Neg (Negative) 08/09/20 Unknown Urine Nitrite Neg (Negative) 08/09/20 Unknown Urine Bilirubin Neg (Negative) 08/09/20 Unknown Urine Urobilinogen 2.0 mg/dL (<2.0) 08/09/20 Unknown Ur Leukocyte Esterase Neg (Negative) 08/09/20 Unknown Urine WBC (Auto) 5.0 /HPF (0.0-6.0) 08/09/20 Unknown Urine RBC (Auto) 8.0 /HPF (0.0-6.0) 08/09/20 Unknown U Epithel Cells (Auto) 4.0 /HPF (0-13.0) 08/09/20 Unknown Hepatitis A IgM Ab Non-reactive (NonReactive) 08/12/20 11:56 Hep Bs Antigen Non-reactive (Negative) 08/12/20 11:56 Hep B Core IgM Ab Non-reactive (NonReactive) 08/12/20 11:56 Hepatitis C Antibody Non-reactive (NonReactive) 08/12/20 11:56 [place]/IV: Voiding Method External Female Catheter Active Medications - Current Medications Current Medications: Generic Name Dose Route Start Last Admin Trade Name Freq PRN Reason Stop Dose Admin Acetaminophen 650 mg 08/13/20 20:22 08/14/20 05:33 Acetaminophen 325 Mg/10.15 Ml Oral Liqd Unit Dose FEEDTUBE 650 mg Q6H PRN Administration Pain, Mild (1-3) Lipase/Protease/Amylase 1 each 08/12/20 12:36 Lipase 10,500/Protease 25,000/Amylase 43,750 (Units) Dr Ospina FEEDTUBE PRN PRN For Clogged Feeding Tube Aspirin 81 mg 08/11/20 10:00 08/14/20 09:06 Aspirin 81 Mg Tab Chew PO 81 mg QDAY FESTUS Administration Dextrose 0 ml 08/10/20 00:43 08/11/20 19:32 Dextrose 50% In Water (25gm) 50 Ml Syringe IV 50 ml Q30MIN PRN Administration Hypoglycemia Protocol Furosemide 40 mg 08/10/20 06:00 08/14/20 05:32 Furosemide 40 Mg/4 Ml Inj IV 40 mg BID@0600,1800 [facility] Administration Heparin Sodium (Porcine) 2,300 unit 08/14/20 08:24 Heparin 10,000 Units/10 Ml Vial 40 unit/kg (2300 unit) IV Q6H PRN Anti-Xa Assay < 0.1 units/ml Heparin Sodium/Sodium Chloride 25,000 unit in 500 mls @ 16 mls/hr 08/14/20 09:00 Heparin/ 0.45% Nacl-25,000 Unit/500 Ml IV TITRATE [facility] Protocol 800 UNITS/HR Insulin Glargine 20 units 08/14/20 11:00 08/14/20 11:57 Insulin Glargine 100 Units/Ml SUB-Q 20 units QAMDIAB [facility] Administration Insulin Human Lispro 0 unit 08/12/20 00:00 08/14/20 12:01 Insulin Lispro 100 Unit/Ml SUB-Q 10 unit Q6HR [facility] Administration Protocol Lactulose 20 gm 08/12/20 18:00 08/14/20 12:01 Lactulose 20 Gm/30 Ml Oral Liqd PO 20 gm Q6HR FESTUS Administration Lisinopril 5 mg 08/11/20 10:00 08/14/20 10:18 Lisinopril 5 Mg Tab PO Not Given QDAY FESTUS Magnesium Hydroxide 30 ml 08/10/20 00:43 Magnesium Hydroxide (Mom) Oral Liqd Udc PO Q4H PRN Constipation Metoprolol Tartrate 50 mg 08/11/20 22:00 08/14/20 10:18 Metoprolol Tartrate 50 Mg Tab PO Not Given BID [facility] Nitroglycerin 0.4 mg 08/10/20 00:43 Nitroglycerin 0.4 Mg Tab Subl SL Q5M PRN Chest Pain Ondansetron HCl 4 mg 08/10/20 00:43 08/10/20 23:32 Ondansetron 4 Mg/2 Ml Inj IV 4 mg Q8H PRN Administration Nausea And Vomiting Simple Syrup 15 ml 08/12/20 12:36 Simple Syrup 15 Ml FEEDTUBE PRN PRN Hypoglycemia Simple Syrup 30 ml 08/12/20 12:36 Simple Syrup 15 Ml FEEDTUBE PRN PRN Hypoglycemia Sodium Bicarbonate 325 mg 08/12/20 12:36 Sodium Bicarbonate 325 Mg Tab FEEDTUBE PRN PRN For Clogged Feeding Tube Sodium Chloride 10 ml 08/10/20 10:00 08/14/20 09:07 Sodium Chloride 0.9% 10 Ml Flush Syringe IV 10 ml BID FESTUS Administration Sodium Chloride 10 ml 08/10/20 00:43 08/14/20 05:33 Sodium Chloride 0.9% 10 Ml Flush Syringe IV 10 ml PRN PRN Administration LINE FLUSH Nutrition/Malnutrition Assess - Dietary Evaluation Nutrition/Malnutrition Findings: Nutrition Notes Start: 08/10/20 11:18 Freq: Status: Active Protocol: Document 08/12/20 12:25 TALITA (Rec: 08/12/20 12:36 TALITA [id number]) Nutrition Notes Need for Assessment generated from: MD Order Initial or Follow up Assessment Current Diagnosis Diabetes,Heart Failure Other Pertinent Diagnosis NSTEMI, extensive acute infarction Current Diet NPO Labs/Tests Na 131 A1C 15.1 Pertinent Medications Decadron, D5W at 75ml/hr Height 5 ft 5 in Weight 58.9 kg [place] Body Weight (kg) 56.81 BMI 21.6 Weight Status Appropriate Subjective/Other Information RD consulted for TF. Pt with poor prognosis. Burn Absent Trauma Absent #1 Nutrition Diagnosis Inadequate oral intake Etiology acute infarction As Evidenced by Signs and Symptoms pt NPO Is patient on ventilator? No Is Patient Ambulatory and/or Out of Bed No REE-([facility]-confined to bed) 1461.852 Calculation Used for Recommendations [facility] Additional Notes Pro needs 0.8-1g/k-59g/ day Fluid needs 1ml/kcal Nutrition Intervention Nutrition Support: Glucerna 1.2 at 40ml/hr with 65ml water flush q4h. Kcal 1,152 Protein (gm) 58 Carbohydrates (gm) 110 Fat (gm) 58 Fluid (mL) 773 Fiber (gm) 15 Goal #1 TF tolerance Goal #2 TF at goal rate to meet at least 75% energy and pro needs Anticipated Discharge Needs: Unable to identify at this time Follow-Up By: 08/14/20 Additional Comments F/U: new TF
--- NOTE | 2020-08-14 13:30 | Progress Note ---
Assessment and Plan Cardiology consulted for CP and acute on chronic HFrEF. 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 Echo (08/10/2020) reviewed: EF 10-15%, Severe hypokinesis of the left ventricle. Left ventricular medium thrombus present. Moderate MR. Mild VT. Moderate TR. Pt reportedly became unresponsive over the weekend and was diagnosed with massive embolic CVA. She remains altered mental status with very poor prognosis. She is currently DNR/DNI status. Continue Heparin drip in setting of LV thrombus if ok per neurology. Continue IV lasix, BB and ACEI as tolerated. Coronary Angiography for further evaluation of cardiomyopathy etiology was scheduled for today. However, pt suffered acute CVA over the weekend and is neurologically unstable at this point. Hospice care is being considered per Primary team and family. From a cardiology perspective, hospice is an appropriate option at this point. Will follow. This patient was seen in conjunction with Dr Blanchard who agrees with this assessment and plan of care. - Patient Problems (1) CVA (cerebral vascular accident) Current Visit: Yes Status: Acute (2) HFrEF (heart failure with reduced ejection fraction) Current Visit: Yes Status: Chronic (3) Dilated cardiomyopathy Current Visit: Yes Status: Acute (4) Left ventricular apical thrombus Current Visit: Yes Status: Chronic (5) Elevated troponin Current Visit: Yes Status: Acute (6) Chest pain Current Visit: Yes Status: Acute Qualifiers: Chest pain type: unspecified Qualified Code(s): R07.9 - Chest pain, unspecified (7) HTN (hypertension) Current Visit: Yes Status: Chronic (8) Uncontrolled diabetes mellitus Current Visit: Yes Status: Chronic (9) History of CVA (cerebrovascular accident) Current Visit: Yes Status: Chronic (10) Hyponatremia Current Visit: Yes Status: Acute (11) Medical non-compliance Current Visit: Yes Status: Chronic (12) Sinus tachycardia Current Visit: Yes Status: Acute (13) Hospice care patient Current Visit: Yes Status: Acute Subjective Date of service: 08/14/20 Principal diagnosis: HFrEF Interval history: Patient is resting in bed, lethargic, withdrawn. Tele reviewed: SR, HR 71. Several bouts of NSVT (longest run 14 beats) and 1 bout of brief SVT noted overnight. Pt asymptomatic. Objective Last Vital Signs Temp 98.6 F 08/14/20 11:57 Pulse 80 08/14/20 11:57 Resp 18 08/14/20 11:57 BP 108/67 08/14/20 11:57 Pulse Ox 98 08/14/20 11:57 - Physical Examination General: Other (Lethargic, withdrawn) HEENT: Positive: Normocephaly, Mucus Membranes Moist Neck: Positive: neck supple, trachea midline, JVD/HJR Cardiac: Positive: Reg Rate and Rhythm, S1/S2 Lungs: Positive: Normal Exam Neuro: Positive: Other (Lethargic) Abdomen: Positive: Unremarkable Skin: Negative: Rash, Wound Musculoskeletal: No Pain Extremities: Present: upper extr. pulses, lower extr. pulses, +2 Edema - Labs and Meds Cardiac Enzymes 08/14/20 Range/Units 04:42 AST 1007 H (5-40) units/L Coagulation 08/14/20 08/14/20 Range/Units 04:42 09:02 PT 18.9 H 17.7 H (12.2-14.9) Sec. INR 1.58 H 1.46 H (0.87-1.13) APTT 88.7 H* (24.2-36.6) Sec. CBC 08/14/20 08/14/20 Range/Units 04:42 09:02 WBC 16.4 H (4.5-11.0) K/mm3 RBC 4.49 (3.65-5.03) M/mm3 Hgb 10.6 11.8 (10.1-14.3) gm/dl Hct 34.2 38.0 (30.3-42.9) % Plt Count 330 299 (140-440) K/mm3 Comprehensive Metabolic Panel 08/14/20 Range/Units 04:42 Sodium 136 L (137-145) mmol/L Potassium 3.4 L (3.6-5.0) mmol/L Chloride 98.6 (98-107) mmol/L Carbon Dioxide 25 (22-30) mmol/L BUN 36 H (7-17) mg/dL Creatinine 0.8 (0.6-1.2) mg/dL Glucose 407 H (65-100) mg/dL Calcium 7.7 L (8.4-10.2) mg/dL Direct Bilirubin 1.5 H (0-0.2) mg/dL Indirect Bilirubin 1.0 mg/dL AST 1007 H (5-40) units/L ALT 944 H (7-56) units/L Alkaline Phosphatase 841 H (35-129) units/L Total Protein 5.1 L (6.3-8.2) g/dL Albumin 2.3 L (3.9-5) g/dL - Imaging and Cardiology EKG: report reviewed, image reviewed Echo: report reviewed (EF 10-15%, Severe hypokinesis of the left ventricle. Left ventricular medium thrombus present. Moderate MR. Mild VT. Moderate TR.) - Telemetry EKG Rhythm: Sinus Rhythm - EKG Sinus rhythms and dysrhythmias: sinus tachycardia
[2020-08-15] MEDS: LACTULOSE 20 GM/30 ML ORAL LIQD PO SCH ×4 (00:32→18:39)
[2020-08-15] MEDS: INSULIN LISPRO 100 UNIT/ML SUB-Q SCH ×4 (00:32→18:40)
[2020-08-15 05:14] LABS: Hematocrit 35.7 % (30.3-42.9)
[2020-08-15 05:30] LABS: Blood Urea Nitrogen 32 mg/dL (7-17); Calcium 7.6 mg/dL (8.4-10.2); Hemolysis Index 15
[2020-08-15 05:33] LABS: BUN/Creatinine Ratio 46
[2020-08-15] MEDS: FUROSEMIDE 40 MG/4 ML INJ IV SCH (11:15)
[2020-08-15] MEDS: ASPIRIN 81 MG TAB CHEW PO SCH (11:18)
[2020-08-15] MEDS: ACETAMINOPHEN 325 MG/10.15 ML ORAL LIQD UNIT DOSE FEEDTUBE PRN (11:18)
[2020-08-15] MEDS: LISINOPRIL 5 MG TAB PO SCH (11:21)
[2020-08-15] MEDS: METOPROLOL TARTRATE 50 MG TAB PO SCH ×2 (11:21→22:48)
[2020-08-15] MEDS: INSULIN GLARGINE 100 UNITS/ML SUB-Q SCH (11:31)
--- NOTE | 2020-08-15 11:38 | Progress Note ---
Assessment and Plan Cont present cardiac management. Overall very poor prognosis. Pt made DNR/AND code status. Pt likely for hospice placement. The patient has been seen in conjunction with Dr. Blanchard who agrees with the assessment and plan of care. - Patient Problems (1) HFrEF (heart failure with reduced ejection fraction) Current Visit: Yes Status: Chronic (2) Dilated cardiomyopathy Current Visit: Yes Status: Acute (3) Left ventricular apical thrombus Current Visit: Yes Status: Chronic (4) Elevated troponin Current Visit: Yes Status: Acute (5) Chest pain Current Visit: Yes Status: Acute Qualifiers: Chest pain type: unspecified Qualified Code(s): R07.9 - Chest pain, unspecified (6) HTN (hypertension) Current Visit: Yes Status: Chronic (7) Uncontrolled diabetes mellitus Current Visit: Yes Status: Chronic (8) History of CVA (cerebrovascular accident) Current Visit: Yes Status: Chronic (9) Hyponatremia Current Visit: Yes Status: Acute (10) Medical non-compliance Current Visit: Yes Status: Chronic (12) Acute CVA Current Visit: Yes Status: Acute (13) Altered mental status Current Visit: Yes Status: Acute (14) DNR code status Current Visit: Yes Status: Acute Subjective Date of service: 08/15/20 Principal diagnosis: HFrEF Interval history: pt resting in bed, remains obtunded. tele reviewed - in SR HR 90s. heparin gtt infusing. Objective Last Vital Signs Temp 100.3 F H 08/15/20 08:10 Pulse 96 H 08/15/20 11:21 Resp 16 08/15/20 08:10 BP 102/69 08/15/20 08:10 Pulse Ox 99 08/15/20 08:50 - Physical Examination General: Other (obtunded) HEENT: Positive: Normocephaly, Mucus Membranes Moist Neck: Positive: neck supple, trachea midline, JVD/HJR Cardiac: Positive: Reg Rate and Rhythm, S1/S2 Lungs: Positive: Decreased Breath Sounds Neuro: Positive: Other (obtunded) Abdomen: Positive: Unremarkable Skin: Negative: Rash, Wound Musculoskeletal: No Pain Extremities: Present: upper extr. pulses, lower extr. pulses, +2 Edema - Labs and Meds CBC 08/15/20 Range/Units 04:19 Hgb 11.0 (10.1-14.3) gm/dl Hct 35.7 (30.3-42.9) % Plt Count 273 (140-440) K/mm3 Comprehensive Metabolic Panel 08/15/20 Range/Units 04:19 Sodium 138 (137-145) mmol/L Potassium 3.3 L (3.6-5.0) mmol/L Chloride 97.4 L (98-107) mmol/L Carbon Dioxide 32 H D (22-30) mmol/L BUN 32 H (7-17) mg/dL Creatinine 0.7 (0.6-1.2) mg/dL Glucose 248 H (65-100) mg/dL Calcium 7.6 L (8.4-10.2) mg/dL - Imaging and Cardiology EKG: report reviewed, image reviewed Echo: report reviewed (EF 10-15%, Severe hypokinesis of the left ventricle. Left ventricular medium thrombus present. Moderate MR. Mild [place]. Moderate TR.) - Telemetry EKG Rhythm: Sinus Rhythm - EKG Sinus rhythms and dysrhythmias: sinus tachycardia
--- NOTE | 2020-08-15 13:31 | Progress Note ---
Assessment and Plan Assessment and plan: (1) NSTEMI (non-ST elevated myocardial infarction) Current Visit: Yes Status: Acute Plan to address problem: We will trend serial cardiac enzymes. Patient placed on daily aspirin, sublingual nitroglycerin as needed for chest pain. She has been started on heparin drip. Consult placed to cardiology for evaluation. (2) CHF (congestive heart failure) Current Visit: Yes Status: Acute Qualifiers: Heart failure type: unspecified Heart failure chronicity: acute on chronic Qualified Code(s): I50.9 - Heart failure, unspecified Plan to address problem: We will monitor daily weights, inputs and outputs will be closely monitored. Patient will be scheduled for echocardiogram. (3) Diabetes mellitus Current Visit: Yes Status: Acute Plan to address problem: Patient placed on sliding scale insulin. Will monitor Accu-Cheks closely. (4) CVA (5) severe combined metabolic encephalopathy with presumed hypoxic encephalopathy (7) DVT prophylaxis Current Visit: Yes Status: Acute Plan to address problem: Patient currently on anticoagulation. (5) Full code status Current Visit: Yes Status: Acute Plan to address problem: Patient is full code. 08/10/2020 -Patient is admitted for the management of non-STEMI and CHF. Patient is on heparin drip, aspirin, IV Lasix. Monitor in and out. Cardiology is following the patient. Diabetes mellitus with hyperglycemia; blood glucose was above 400 and I started the patient on long-acting insulin, Humalog AC and sliding scale insulin, will follow hemoglobin A1c level. -Continue inpatient care 08/11/20 -Patient had echo showed EF of 10 to 15%, with diastolic dysfunction. Patient had echo in 2015 and had EF of 15 to 20%. Patient started on metoprolol, and lisinopril. Blood pressure is well controlled. Continue with IV Lasix. Cardiology is following and will do ischemic work-up on Friday. Patient's hemoglobin A1c is 15.1, has hyperglycemia, and started on Lantus and sliding scale insulin and AC Humalog. Blood pressure this morning was 64 and I discontinued the AC Humalog, monitor blood sugar and adjust insulin as needed. -Disposition continue inpatient care. -I have been notified with nursing staff that Ms Perez has altered mental status, I went and evaluated her and patient was altered. Patient has strong pulse, was on oxygen and saturation was ok. No fever. Blood sugar was checked and was 135 but earlier patient had hypoglycemia and was treated with dextrose and insulin discontinued put on D5w. I called code stroke and stat CT, head, CTA head & neck was done and was unrevealing. MRI was done and showed extensive acute infarction. Neurology was consulted and discussed with Dr Flores and she said continue with heparin drip, no other recommendations. she said SAL but patient had LV thrombus on TTE and there is no need to It. patient was evaluated by cardiology Echo showed EF 10-15%, LV thrombus and patient is on heparin drip and other appropriate CHF treatment. Patient was not following with physician and was not taking any medications and her a1c was 15.1. Patient was diagnosed with CHF with EF of 10-15% 4 years ago and didn't have any follow ups and she said donovan has no insurance. I called and discussed with her Spouse Priya over the phone. She said patient doesn't want resucitation or intubation. she now DNR/DNI. Priya Riley @[phone]. Prognosis is very poor. 08/12/20 -Extensive acute infarction. Acute on chronic systolic CHF, left ventricular thrombus. Patient is on heparin drip. Cardiology is following. Neurology recommendations noted. Prognosis is poor. Will follow. Patient is DNR/DNI. If no improvement in her mental status I will put OG tube feeding for now. Management plan discussed with our spouse yesterday. 08/13/2020; extensive acute CVA, neurology consult appreciated. Acute on chronic systolic CHF, left ventricular apical thrombus. Continue with heparin drip. Cardiology is following the patient. Patient is DNR/DNI. Patient is on OG tube feeding. Prognosis is poor. Discussed with her spouse Priya Riley @[phone]. elevated liver enzymes; trending up. Ammonia level is going up despite lactulose. 08/14: Patient remains grossly unresponsive. I did discuss with patient's spouse Priya I did update her on all the findings so far which includes the CVA and her unresponsiveness she verbalized understanding. Also discussed advance care planning including consideration for hospice she would like to see her before making the decision 35 minutes spent. Setting communicated also to the director of casework services. I also discussed with the hogshead stripper per their recommendation no further input is beneficial from their standpoint. 08/15: Unfortunately remains unresponsive. spoke to Ms Powers, she will like to get information About Hospice and understands that her prognosis is poor. Hosp ice consult placed. Start Emperic abx. for noted low grade fever History Interval history: Patient seen and examined, remains grossly unresponsive. Hospitalist Physical - Physical exam Narrative exam: On intranasal oxygen The patient appeared well nourished and normally developed. Otherwise unresponsive Vital signs as documented. Head exam is unremarkable. No scleral icterus . Neck is with jugular venous distension Lungs are clear to auscultation. Cardiac exam reveals regular rate and Rhythm. Tachycardic Abdominal exam reveals normal bowel sounds, nontender, no organomegaly. Extremities are nonedematous and both femoral and pedal pulses are normal. NEWSPAPER CARRIER: Altered mental status - Constitutional Vitals: Temp Pulse Resp BP Pulse Ox 100.3 F H 96 H 16 102/69 99 08/15/20 08:10 08/15/20 11:21 08/15/20 08:10 08/15/20 08:10 08/15/20 08:50 General appearance: Present: no acute distress HEART Score - HEART Score EKG: Non-specific Age: 45-65 Risk factors: > 3 risk factors or hx of atherosclerotic disease Troponin: Troponin T 0.056 ng/mL (0.00-0.029) H 08/10/20 07:39 Troponin: > 3x normal limit Results - Labs CBC & Chem 7: 08/15/20 04:19 08/15/20 04:19 Labs: Laboratory Last Values WBC 16.4 K/mm3 (4.5-11.0) H 08/14/20 04:42 RBC 4.49 M/mm3 (3.65-5.03) 08/14/20 04:42 Hgb 11.0 gm/dl (10.1-14.3) 08/15/20 04:19 Hct 35.7 % (30.3-42.9) 08/15/20 04:19 MCV 76 fl (79-97) L 08/14/20 04:42 MCH 24 pg (28-32) L 08/14/20 04:42 MCHC 31 % (30-34) 08/14/20 04:42 RDW 19.4 % (13.2-15.2) H 08/14/20 04:42 Plt Count 273 K/mm3 (140-440) 08/15/20 04:19 Lymph % (Auto) 28.3 % (13.4-35.0) 08/11/20 05:15 [place] % (Auto) 10.8 % (0.0-7.3) H 08/11/20 05:15 Eos % (Auto) 0.4 % (0.0-4.3) 08/11/20 05:15 Baso % (Auto) 1.2 % (0.0-1.8) 08/11/20 05:15 Lymph # (Auto) 2.9 K/mm3 (1.2-5.4) 08/11/20 05:15 [place] # (Auto) 1.1 K/mm3 (0.0-0.8) H 08/11/20 05:15 Eos # (Auto) 0.0 K/mm3 (0.0-0.4) 08/11/20 05:15 Baso # (Auto) 0.1 K/mm3 (0.0-0.1) 08/11/20 05:15 Add Manual Diff Complete 08/14/20 04:42 Total Counted 100 08/14/20 04:42 Seg Neutrophils % Radio Time Sales Supervisor 08/14/20 04:42 Seg Neuts % (Manual) 96.0 % (40.0-70.0) H 08/14/20 04:42 Lymphocytes % (Manual) 1.0 % (13.4-35.0) L 08/14/20 04:42 Monocytes % (Manual) 3.0 % (0.0-7.3) 08/14/20 04:42 Nucleated RBC % Not Reportable 08/14/20 04:42 Seg Neutrophils # 6.0 K/mm3 (1.8-7.7) 08/11/20 05:15 Seg Neutrophils # Man 15.7 K/mm3 (1.8-7.7) H 08/14/20 04:42 Band Neutrophils # 0.0 K/mm3 08/14/20 04:42 Lymphocytes # (Manual) 0.2 K/mm3 (1.2-5.4) L 08/14/20 04:42 Abs React Lymphs (Man) 0.0 K/mm3 08/14/20 04:42 Monocytes # (Manual) 0.5 K/mm3 (0.0-0.8) 08/14/20 04:42 Eosinophils # (Manual) 0.0 K/mm3 (0.0-0.4) 08/14/20 04:42 Basophils # (Manual) 0.0 K/mm3 (0.0-0.1) 08/14/20 04:42 Metamyelocytes # 0.0 K/mm3 08/14/20 04:42 Myelocytes # 0.0 K/mm3 08/14/20 04:42 Promyelocytes # 0.0 K/mm3 08/14/20 04:42 Blast Cells # 0.0 K/mm3 08/14/20 04:42 WBC Morphology Not Reportable 08/14/20 04:42 Hypersegmented Neuts Rare 08/14/20 04:42 Hyposegmented Neuts Not Reportable 08/14/20 04:42 Hypogranular Neuts Not Reportable 08/14/20 04:42 Smudge Cells Not Reportable 08/14/20 04:42 Toxic Granulation Not Reportable 08/14/20 04:42 Toxic Vacuolation Not Reportable 08/14/20 04:42 Dohle Bodies Not Reportable 08/14/20 04:42 Pelger-Huet Anomaly Not Reportable 08/14/20 04:42 Fadumo Rods Not Reportable 08/14/20 04:42 Platelet Estimate Cons 08/14/20 04:42 Clumped Platelets Not Reportable 08/14/20 04:42 Plt Clumps, EDTA Not Reportable 08/14/20 04:42 Large Platelets Not Reportable 08/14/20 04:42 Giant Platelets Not Reportable 08/14/20 04:42 Platelet Satelliting Not Reportable 08/14/20 04:42 Plt Morphology Comment Not Reportable 08/14/20 04:42 RBC Morphology Not Reportable 08/14/20 04:42 Dimorphic RBCs Not Reportable 08/14/20 04:42 Polychromasia Not Reportable 08/14/20 04:42 Hypochromasia 1+ 08/14/20 04:42 Poikilocytosis Not Reportable 08/14/20 04:42 Anisocytosis 1+ 08/14/20 04:42 Microcytosis Not Reportable 08/14/20 04:42 Macrocytosis Not Reportable 08/14/20 04:42 Spherocytes Not Reportable 08/14/20 04:42 Pappenheimer Bodies Not Reportable 08/14/20 04:42 Sickle Cells Not Reportable 08/14/20 04:42 Target Cells Not Reportable 08/14/20 04:42 Tear Drop Cells Not Reportable 08/14/20 04:42 Ovalocytes Not Reportable 08/14/20 04:42 Helmet Cells Not Reportable 08/14/20 04:42 [place] Bodies Not Reportable 08/14/20 04:42 [place] Rings Not Reportable 08/14/20 04:42 [place] Cells Not Reportable 08/14/20 04:42 Bite Cells Not Reportable 08/14/20 04:42 Crenated Cell Not Reportable 08/14/20 04:42 Elliptocytes Not Reportable 08/14/20 04:42 Acanthocytes (Spur) Not Reportable 08/14/20 04:42 Rouleaux Not Reportable 08/14/20 04:42 Hemoglobin C Crystals Not Reportable 08/14/20 04:42 Schistocytes Not Reportable 08/14/20 04:42 Malaria parasites Not Reportable 08/14/20 04:42 Mauro Bodies Not Reportable 08/14/20 04:42 Hem Pathologist Commnt No 08/14/20 04:42 PT 17.7 Sec. (12.2-14.9) H 08/14/20 09:02 INR 1.46 (0.87-1.13) H 08/14/20 09:02 APTT 88.7 Sec. (24.2-36.6) H* 08/14/20 09:02 Heparin Anti-Xa Level 0.32 U.I./ml (0.3-0.7) 08/15/20 01:38 Sodium 138 mmol/L (137-145) 08/15/20 04:19 Potassium 3.3 mmol/L (3.6-5.0) L 08/15/20 04:19 Chloride 97.4 mmol/L (98-107) L 08/15/20 04:19 Carbon Dioxide 32 mmol/L (22-30) H D 08/15/20 04:19 Anion Gap 12 mmol/L 08/15/20 04:19 BUN 32 mg/dL (7-17) H 08/15/20 04:19 Creatinine 0.7 mg/dL (0.6-1.2) 08/15/20 04:19 Estimated GFR > 60 ml/min 08/15/20 04:19 BUN/Creatinine Ratio 46 % 08/15/20 04:19 Glucose 248 mg/dL (65-100) H 08/15/20 04:19 POC Glucose 156 mg/dL (70-105) H 08/15/20 11:34 Hemoglobin A1c 15.1 % (4-6) H 08/10/20 11:38 Calcium 7.6 mg/dL (8.4-10.2) L 08/15/20 04:19 Magnesium 1.60 mg/dL (1.7-2.3) L 08/11/20 18:08 Total Bilirubin 2.50 mg/dL (0.1-1.2) H 08/14/20 04:42 Direct Bilirubin 1.5 mg/dL (0-0.2) H 08/14/20 04:42 Indirect Bilirubin 1.0 mg/dL 08/14/20 04:42 AST 1007 units/L (5-40) H 08/14/20 04:42 ALT 944 units/L (7-56) H 08/14/20 04:42 Alkaline Phosphatase 841 units/L (35-129) H 08/14/20 04:42 Ammonia 96.0 umol/L (25-60) H 08/14/20 04:42 Troponin T 0.056 ng/mL (0.00-0.029) H 08/10/20 07:39 NT-Pro-B Natriuret Pep 1579 pg/mL (0-450) H 08/09/20 17:28 Total Protein 5.1 g/dL (6.3-8.2) L 08/14/20 04:42 Albumin 2.3 g/dL (3.9-5) L 08/14/20 04:42 Albumin/Globulin Ratio 0.8 % 08/14/20 04:42 Triglycerides 79 mg/dL (2-149) 08/09/20 17:28 Cholesterol 189 mg/dL (50-199) 08/09/20 17:28 LDL Cholesterol Direct 104 mg/dL (50-130) 08/09/20 17:28 HDL Cholesterol 91 mg/dL (40-59) H 08/09/20 17:28 Cholesterol/HDL Ratio 2.07 % 08/09/20 17:28 Lipase 49 units/L (13-60) 08/09/20 17:28 Urine Color Yellow (Yellow) 08/09/20 Unknown Urine Turbidity Clear (Clear) 08/09/20 Unknown Urine pH 6.0 (5.0-7.0) 08/09/20 Unknown Ur Specific [place] 1.040 (1.003-1.030) H 08/09/20 Unknown Urine Protein 100 mg/dl mg/dL (Negative) 08/09/20 Unknown Urine Glucose (UA) >=500 mg/dL (Negative) 08/09/20 Unknown Urine Ketones 20 mg/dL (Negative) 08/09/20 Unknown Urine Blood Neg (Negative) 08/09/20 Unknown Urine Nitrite Neg (Negative) 08/09/20 Unknown Urine Bilirubin Neg (Negative) 08/09/20 Unknown Urine Urobilinogen 2.0 mg/dL (<2.0) 08/09/20 Unknown Ur Leukocyte Esterase Neg (Negative) 08/09/20 Unknown Urine WBC (Auto) 5.0 /HPF (0.0-6.0) 08/09/20 Unknown Urine RBC (Auto) 8.0 /HPF (0.0-6.0) 08/09/20 Unknown U Epithel Cells (Auto) 4.0 /HPF (0-13.0) 08/09/20 Unknown Hepatitis A IgM Ab Non-reactive (NonReactive) 08/12/20 11:56 Hep Bs Antigen Non-reactive (Negative) 08/12/20 11:56 Hep B Core IgM Ab Non-reactive (NonReactive) 08/12/20 11:56 Hepatitis C Antibody Non-reactive (NonReactive) 08/12/20 11:56 [place]/IV: Voiding Method External Female Catheter Active Medications - Current Medications Current Medications: Generic Name Dose Route Start Last Admin Trade Name Freq PRN Reason Stop Dose Admin Acetaminophen 650 mg 08/13/20 20:22 08/15/20 11:18 Acetaminophen 325 Mg/10.15 Ml Oral Liqd Unit Dose FEEDTUBE 650 mg Q6H PRN Administration Pain, Mild (1-3) Lipase/Protease/Amylase 1 each 08/12/20 12:36 Lipase 10,500/Protease 25,000/Amylase 43,750 (Units) Dr Cap FEEDTUBE PRN PRN For Clogged Feeding Tube Aspirin 81 mg 03/12/21 10:00 08/15/20 11:18 Aspirin 81 Mg Tab Chew PO 81 mg QDAY FESTUS Administration Dextrose 0 ml 08/10/20 00:43 08/11/20 19:32 Dextrose 50% In Water (25gm) 50 Ml Syringe IV 50 ml Q30MIN PRN Administration Hypoglycemia Protocol Furosemide 40 mg 08/15/20 10:00 08/15/20 11:15 Furosemide 40 Mg/4 Ml Inj IV 40 mg QDAY FESTUS Administration Heparin Sodium (Porcine) 2,300 unit 08/14/20 08:24 Heparin 10,000 Units/10 Ml Vial 40 unit/kg (2300 unit) IV Q6H PRN Anti-Xa Assay < 0.1 units/ml Heparin Sodium/Sodium Chloride 25,000 unit in 500 mls @ 16 mls/hr 08/14/20 09:00 08/15/20 03:07 Heparin/ 0.45% Nacl-25,000 Unit/500 Ml IV 800 units/hr TITRATE FESTUS 16 mls/hr Titration Protocol 800 UNITS/HR Insulin Glargine 20 units 08/14/20 11:00 08/15/20 11:31 Insulin Glargine 100 Units/Ml SUB-Q 20 units QAMDIAB FESTUS Administration Insulin Human Lispro 0 unit 08/12/20 00:00 08/15/20 06:57 Insulin Lispro 100 Unit/Ml SUB-Q 4 unit Q6HR FESTUS Administration Protocol Lactulose 20 gm 08/12/20 18:00 08/15/20 05:54 Lactulose 20 Gm/30 Ml Oral Liqd PO Not Given Q6HR [facility] Lisinopril 5 mg 08/11/20 10:00 08/15/20 11:21 Lisinopril 5 Mg Tab PO Not Given QDAY FESTUS Magnesium Hydroxide 30 ml 08/10/20 00:43 Magnesium Hydroxide (Mom) Oral Liqd Udc PO Q4H PRN Constipation Metoprolol Tartrate 50 mg 08/11/20 22:00 08/15/20 11:21 Metoprolol Tartrate 50 Mg Tab PO 50 mg BID FESTUS Administration Nitroglycerin 0.4 mg 08/10/20 00:43 Nitroglycerin 0.4 Mg Tab Subl SL Q5M PRN Chest Pain Ondansetron HCl 4 mg 08/10/20 00:43 08/10/20 23:32 Ondansetron 4 Mg/2 Ml Inj IV 4 mg Q8H PRN Administration Nausea And Vomiting Simple Syrup 15 ml 08/12/20 12:36 Simple Syrup 15 Ml FEEDTUBE PRN PRN Hypoglycemia Simple Syrup 30 ml 08/12/20 12:36 Simple Syrup 15 Ml FEEDTUBE PRN PRN Hypoglycemia Sodium Bicarbonate 325 mg 08/12/20 12:36 Sodium Bicarbonate 325 Mg Tab FEEDTUBE PRN PRN For Clogged Feeding Tube Sodium Chloride 10 ml 08/10/20 10:00 08/15/20 11:21 Sodium Chloride 0.9% 10 Ml Flush Syringe IV 10 ml BID FESTUS Administration Sodium Chloride 10 ml 08/10/20 00:43 08/14/20 05:33 Sodium Chloride 0.9% 10 Ml Flush Syringe IV 10 ml PRN PRN Administration LINE FLUSH Nutrition/Malnutrition Assess - Dietary Evaluation Nutrition/Malnutrition Findings: Nutrition Notes Start: 08/10/20 11:18 Freq: Status: Active Protocol: Document 08/14/20 13:35 (Rec: 08/14/20 13:43 [email or web address]) Nutrition Notes Initial or Follow up Reassessment Current Diagnosis Diabetes,Heart Failure Other Pertinent Diagnosis NSTEMI, extensive acute infarction Current Diet Glucerna 1.2 at 40 ml/hr Labs/Tests Na 136 K 3.4 BUN 36 BG 407 Pertinent Medications Humalog, Lantus Lasix Height 5 ft 5 in Weight 56.6 kg [place] Body Weight (kg) 56.81 BMI 20.7 Weight change and time frame Wt change noted, pt with edema and CHF Weight Status Appropriate Subjective/Other Information FU for TF start. Pt with AMS and unable to consume PO. Per chart, pt tolerating at goal rate. Observed Glucerna running at 40 ml/hr. Unable to wake pt at time of visit. Percent of energy/protein needs met: 80%/100% Burn Absent Trauma Absent Current % PO Negligible Minimum of two criteria No Muscle Mass Moderate Depletion (severe) Fluid Accumulation Mild (non-severe) #1 Nutrition Diagnosis Inadequate oral intake Diagnosis Progress(for reassessment Continues documentation) Is patient on ventilator? No Is Patient Ambulatory and/or Out of Bed No REE-([facility]-confined to bed) 5960.597 Calculation Used for Recommendations Salvador Wallace Additional Notes Pro needs 0.8-1g/k-59g/ day Fluid needs 1ml/kcal Nutrition Intervention Nutrition Support: Glucerna 1.2 at 40ml/hr with 65ml water flush q4h. Kcal 1,152 Protein (gm) 58 Carbohydrates (gm) 110 Fat (gm) 58 Fluid (mL) 773 Fiber (gm) 15 Goal #1 TF tolerance Goal #2 TF at goal rate to meet at least 75% energy and pro needs Anticipated Discharge Needs: Unable to identify at this time Follow-Up By: 08/16/20 Additional Comments FU for TF tolerance and plan of care
[2020-08-15] MEDS: CEFEPIME/NS 1 GM/100 ML 1 GM/100 ML BAG IV SCH ×2 (18:38→22:48)
[2020-08-16] MEDS: INSULIN LISPRO 100 UNIT/ML SUB-Q SCH ×4 (00:04→18:16)
[2020-08-16] MEDS: LACTULOSE 20 GM/30 ML ORAL LIQD PO SCH ×4 (00:04→17:12)
[2020-08-16] MEDS: CEFEPIME/NS 1 GM/100 ML 1 GM/100 ML BAG IV SCH ×3 (06:07→22:58)
[2020-08-16] MEDS: HEPARIN/ 0.45% NACL DRIP 25,000 UNIT/500 ML BAG IV SCH (06:08)
[2020-08-16 06:18] LABS: Hematocrit 35.1 % (30.3-42.9); Hemoglobin 10.7 gm/dl (10.1-14.3); Mean Corpuscular HGB Conc 31 % (30-34); Mean Corpuscular Volume 77 fl (79-97); Platelet Count 211 K/mm3 (140-440); Red Blood Count 4.56 M/mm3 (3.65-5.03); Red Cell Distribution Width 19.3 % (13.2-15.2)
[2020-08-16 06:36] LABS: Alanine Aminotransferase 455 units/L (7-56); Albumin 2.3 g/dL (3.9-5); Blood Urea Nitrogen 36 mg/dL (7-17); Calcium 7.4 mg/dL (8.4-10.2); Hemolysis Index 10
[2020-08-16 06:37] LABS: BUN/Creatinine Ratio 60
[2020-08-16] MEDS: METOPROLOL TARTRATE 50 MG TAB PO SCH ×2 (09:57→22:58)
[2020-08-16] MEDS: INSULIN GLARGINE 100 UNITS/ML SUB-Q SCH (09:57)
[2020-08-16] MEDS: LISINOPRIL 5 MG TAB PO SCH (09:57)
[2020-08-16] MEDS: ASPIRIN 81 MG TAB CHEW PO SCH (09:57)
[2020-08-16] MEDS: FUROSEMIDE 40 MG/4 ML INJ IV SCH (09:57)
--- NOTE | 2020-08-16 10:16 | Progress Note ---
Assessment and Plan Cont present cardiac management. Overall very poor prognosis. Pt made DNR/AND code status. Pt likely for hospice placement. The patient has been seen in conjunction with Dr. Blanchard who agrees with the assessment and plan of care. - Patient Problems (1) HFrEF (heart failure with reduced ejection fraction) Current Visit: Yes Status: Chronic (2) Dilated cardiomyopathy Current Visit: Yes Status: Acute (3) Left ventricular apical thrombus Current Visit: Yes Status: Chronic (4) Elevated troponin Current Visit: Yes Status: Acute (5) Chest pain Current Visit: Yes Status: Acute Qualifiers: Chest pain type: unspecified Qualified Code(s): R07.9 - Chest pain, unspecified (6) HTN (hypertension) Current Visit: Yes Status: Chronic (7) Uncontrolled diabetes mellitus Current Visit: Yes Status: Chronic (8) History of CVA (cerebrovascular accident) Current Visit: Yes Status: Chronic (9) Hyponatremia Current Visit: Yes Status: Acute (10) Medical non-compliance Current Visit: Yes Status: Chronic (12) Acute CVA Current Visit: Yes Status: Acute (13) Altered mental status Current Visit: Yes Status: Acute (14) DNR code status Current Visit: Yes Status: Acute (15) NSVT Current Visit: Yes Status: Acute Subjective Date of service: 08/16/20 Principal diagnosis: HFrEF Interval history: pt resting in bed, remains obtunded. tele reviewed - in SR HR 90s-100s, 10 beat run NSVT noted yesterday afternoon. heparin gtt infusing. Objective Last Vital Signs Temp 100.5 F H 08/16/20 08:31 Pulse 100 H 08/16/20 08:31 Resp 24 08/16/20 08:31 BP 110/79 08/16/20 08:31 Pulse Ox 98 08/16/20 08:31 - Physical Examination General: Other (obtunded) HEENT: Positive: Normocephaly, Mucus Membranes Moist Neck: Positive: neck supple, trachea midline, JVD/HJR Cardiac: Positive: Reg Rate and Rhythm, S1/S2 Lungs: Positive: Decreased Breath Sounds Neuro: Positive: Other (obtunded) Abdomen: Positive: Unremarkable Skin: Negative: Rash, Wound Musculoskeletal: No Pain Extremities: Present: upper extr. pulses, lower extr. pulses, +2 Edema - Labs and Meds Cardiac Enzymes 08/16/20 Range/Units 05:44 AST 267 H (5-40) units/L CBC 08/16/20 Range/Units 05:44 WBC 11.9 H (4.5-11.0) K/mm3 RBC 4.56 (3.65-5.03) M/mm3 Hgb 10.7 (10.1-14.3) gm/dl Hct 35.1 (30.3-42.9) % Plt Count 211 (140-440) K/mm3 Comprehensive Metabolic Panel 08/16/20 Range/Units 05:44 Sodium 137 (137-145) mmol/L Potassium 3.6 (3.6-5.0) mmol/L Chloride 100.8 (98-107) mmol/L Carbon Dioxide 30 (22-30) mmol/L BUN 36 H (7-17) mg/dL Creatinine 0.6 (0.6-1.2) mg/dL Glucose 139 H (65-100) mg/dL Calcium 7.4 L (8.4-10.2) mg/dL AST 267 H (5-40) units/L ALT 455 H (7-56) units/L Alkaline Phosphatase 535 H (35-129) units/L Total Protein 5.0 L (6.3-8.2) g/dL Albumin 2.3 L (3.9-5) g/dL - Imaging and Cardiology EKG: report reviewed, image reviewed Echo: report reviewed (EF 10-15%, Severe hypokinesis of the left ventricle. Left ventricular medium thrombus present. Moderate MR. Mild IA. Moderate TR.) - Telemetry EKG Rhythm: Sinus Rhythm - EKG Sinus rhythms and dysrhythmias: sinus tachycardia
--- NOTE | 2020-08-16 12:18 | Discharge Summary ---
Providers - Providers Date of Admission: 08/09/20 22:02 Attending physician: RICARDO CHURCH MD 08/10/20 Consult to Cardiac Rehabilitation [CONS] Routine Reason For Exam: Phase I 08/10/20 00:43 Consult to Physician [CONS] Routine Comment: Consulting Provider: MAKSIM EDWARD Physician Instructions: Reason For Exam: NSTEMI,CHF 08/10/20 00:44 Consult to Dietitian/Nutrition [CONS] Routine Physician Instructions: Reason For Exam: Reason for Consult: Diet education 08/12/20 10:20 Consult to Dietitian/Nutrition [CONS] Routine Physician Instructions: Reason For Exam: Reason for Consult: Write/Manage Tube Feeding 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 Patient placed on daily aspirin, sublingual nitroglycerin as needed for chest pain. She has been started on heparin drip. Consult placed to cardiology for evaluation. (2) CHF (congestive heart failure) Current Visit: Yes Status: Acute Qualifiers: Heart failure type: unspecified Heart failure chronicity: acute on chronic Qualified Code(s): I50.9 - Heart failure, unspecified Plan to address problem: We will monitor daily weights, inputs and outputs will be closely monitored. Patient will be scheduled for echocardiogram. (3) Diabetes mellitus Current Visit: Yes Status: Acute Plan to address problem: Patient placed on sliding scale insulin. Will monitor Accu-Cheks closely. (4) CVA (5) severe combined metabolic encephalopathy with presumed hypoxic encephalopathy (7) DVT prophylaxis Current Visit: Yes Status: Acute Plan to address problem: Patient currently on anticoagulation. (5) Full code status Current Visit: Yes Status: Acute Plan to address problem: Patient is full code. 08/10/2020 -Patient is admitted for the management of non-STEMI and CHF. Patient is on heparin drip, aspirin, IV Lasix. Monitor in and out. Cardiology is following the patient. Diabetes mellitus with hyperglycemia; blood glucose was above 400 and I started the patient on long-acting insulin, Humalog AC and sliding scale insulin, will follow hemoglobin A1c level. -Continue inpatient care 08/11/20 -Patient had echo showed EF of 10 to 15%, with diastolic dysfunction. Patient had echo in 2015 and had EF of 15 to 20%. Patient started on metoprolol, and lisinopril. Blood pressure is well controlled. Continue with IV Lasix. Cardiology is following and will do ischemic work-up on Friday. Patient's hemoglobin A1c is 15.1, has hyperglycemia, and started on Lantus and sliding scale insulin and AC Humalog. Blood pressure this morning was 64 and I discontinued the AC Humalog, monitor blood sugar and adjust insulin as needed. -Disposition continue inpatient care. -I have been notified with nursing staff that Ms Perez has altered mental status, I went and evaluated her and patient was altered. Patient has strong pulse, was on oxygen and saturation was ok. No fever. Blood sugar was checked and was 135 but earlier patient had hypoglycemia and was treated with dextrose and insulin discontinued put on D5w. I called code stroke and stat CT, head, CTA head & neck was done and was unrevealing. MRI was done and showed extensive acute infarction. Neurology was consulted and discussed with Dr Flores and she said continue with heparin drip, no other recommendations. she said SAL but patient had LV thrombus on TTE and there is no need to It. patient was evaluated by cardiology Echo showed EF 10-15%, LV thrombus and patient is on heparin drip and other appropriate CHF treatment. Patient was not following with physician and was not taking any medications and her a1c was 15.1. Patient was diagnosed with CHF with EF of 10-15% 4 years ago and didn't have any follow ups and she said [facility] [place] no insurance. I called and discussed with her Spouse Priya over the phone. She said patient doesn't want resucitation or intubation. she now DNR/DNI. Priya Riley @[phone]. Prognosis is very poor. 08/12/20 -Extensive acute infarction. Acute on chronic systolic CHF, left ventricular thrombus. Patient is on heparin drip. Cardiology is following. Neurology recommendations noted. Prognosis is poor. Will follow. Patient is DNR/DNI. If no improvement in her mental status I will put OG tube feeding for now. Management plan discussed with our spouse yesterday. 08/13/2020; extensive acute CVA, neurology consult appreciated. Acute on chronic systolic CHF, left ventricular apical thrombus. Continue with heparin drip. Cardiology is following the patient. Patient is DNR/DNI. Patient is on OG tube feeding. Prognosis is poor. Discussed with her spouse Priya Riley @. elevated liver enzymes; trending up. Ammonia level is going up despite lactulose. 08/14: Patient remains grossly unresponsive. I did discuss with patient's spouse Priya I did update her on all the findings so far which includes the CVA and her unresponsiveness she verbalized understanding. Also discussed advance care planning including consideration for hospice she would like to see her before making the decision 35 minutes spent. Setting communicated also to the case management manager. I also discussed with the wafer polisher per their recommendation no further input is beneficial from their standpoint. 08/15: Unfortunately remains unresponsive. spoke to Ms Priya, she will like to get information About Hospice and understands that her prognosis is poor. Hospice consult placed. Start Emperic abx. for noted low grade fever 08/16: No new change, still with arrythmia. Hospice ongoing, if approved will discharge today, no on statin due to the Elevated Transaminitis Disposition: [id number] ([facility]) Final Discharge Diagnosis (Prints w/discharge instructions): CVA Time spent for discharge: 35 mins Core Measure Documentation - Palliative Care Palliative Care/ Comfort Measures: Hospice Care - Core Measures Any of the following diagnoses?: stroke - Stroke Discharge Requirements Statin for LDL = or >70 mg/dl on DC: No Reason for no statin on DC: Medical Contraindication Anticoag for atrial fib/atrial flutter: Not Applicable Antithrombotic for ischemic stroke: Yes Exam - Physical Exam Narrative exam: On intranasal oxygen The patient appeared well nourished and normally developed. Otherwise unresponsive Vital signs as documented. Head exam is unremarkable. No scleral icterus . Neck is with jugular venous distension Lungs are clear to auscultation. Cardiac exam reveals regular rate and Rhythm. Tachycardic Abdominal exam reveals normal bowel sounds, nontender, no organomegaly. Extremities are nonedematous and both femoral and pedal pulses are normal. 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
[2020-08-16] MEDS: ACETAMINOPHEN 325 MG/10.15 ML ORAL LIQD UNIT DOSE FEEDTUBE PRN (23:50)
[2020-08-17 05:55] LABS: Hematocrit 35.7 % (30.3-42.9)
[2020-08-17] MEDS: CEFEPIME/NS 1 GM/100 ML 1 GM/100 ML BAG IV SCH ×3 (06:33→23:34)
[2020-08-17] MEDS: LACTULOSE 20 GM/30 ML ORAL LIQD PO SCH ×4 (07:02→19:49)
[2020-08-17] MEDS: INSULIN LISPRO 100 UNIT/ML SUB-Q SCH ×5 (07:03→23:50)
[2020-08-17] MEDS: INSULIN GLARGINE 100 UNITS/ML SUB-Q SCH (08:54)
--- NOTE | 2020-08-17 10:30 | Progress Note ---
Assessment and Plan Cont present cardiac management. Overall very poor prognosis. Pt made DNR/AND code status. Pt for hospice placement. Will follow on as needed basis. The patient has been seen in conjunction with Dr. Blanchard who agrees with the assessment and plan of care. - Patient Problems (1) HFrEF (heart failure with reduced ejection fraction) Current Visit: Yes Status: Chronic (2) Dilated cardiomyopathy Current Visit: Yes Status: Acute (3) Left ventricular apical thrombus Current Visit: Yes Status: Chronic (4) Elevated troponin Current Visit: Yes Status: Acute (5) Chest pain Current Visit: Yes Status: Acute Qualifiers: Chest pain type: unspecified Qualified Code(s): R07.9 - Chest pain, unspecified (6) HTN (hypertension) Current Visit: Yes Status: Chronic (7) Uncontrolled diabetes mellitus Current Visit: Yes Status: Chronic (8) History of CVA (cerebrovascular accident) Current Visit: Yes Status: Chronic (9) Hyponatremia Current Visit: Yes Status: Acute (10) Medical non-compliance Current Visit: Yes Status: Chronic (12) Acute CVA Current Visit: Yes Status: Acute (13) Altered mental status Current Visit: Yes Status: Acute (14) DNR code status Current Visit: Yes Status: Acute (15) NSVT Current Visit: Yes Status: Acute Subjective Date of service: 08/17/20 Principal diagnosis: HFrEF Interval history: pt resting in bed, remains obtunded. tele reviewed - in SR HR 90s-100s, 7 beat run NSVT noted yesterday afternoon. heparin gtt infusing. Objective Last Vital Signs Temp 99.1 F 08/17/20 07:16 Pulse 82 08/17/20 07:16 Resp 17 08/17/20 03:47 BP 106/71 08/17/20 07:16 Pulse Ox 100 08/17/20 10:22 - Physical Examination General: Other (obtunded) HEENT: Positive: Normocephaly, Mucus Membranes Moist Neck: Positive: neck supple, trachea midline, JVD/HJR Cardiac: Positive: Reg Rate and Rhythm, S1/S2 Lungs: Positive: Decreased Breath Sounds Neuro: Positive: Other (obtunded) Abdomen: Positive: Unremarkable Skin: Negative: Rash, Wound Musculoskeletal: No Pain Extremities: Present: upper extr. pulses, lower extr. pulses, +2 Edema - Labs and Meds CBC 08/17/20 Range/Units 05:27 Hgb 11.0 (10.1-14.3) gm/dl Hct 35.7 (30.3-42.9) % Plt Count 121 L (140-440) K/mm3 - Imaging and Cardiology EKG: report reviewed, image reviewed Echo: report reviewed (EF 10-15%, Severe hypokinesis of the left ventricle. Left ventricular medium thrombus present. Moderate MR. Mild MT. Moderate TR.) - Telemetry EKG Rhythm: Sinus Rhythm - EKG Sinus rhythms and dysrhythmias: sinus tachycardia
[2020-08-17] MEDS: METOPROLOL TARTRATE 50 MG TAB PO SCH ×2 (10:40→22:56)
[2020-08-17] MEDS: ASPIRIN 81 MG TAB CHEW PO SCH (10:40)
[2020-08-17] MEDS: LISINOPRIL 5 MG TAB PO SCH (10:41)
[2020-08-17] MEDS: FUROSEMIDE 40 MG/4 ML INJ IV SCH (10:41)
--- NOTE | 2020-08-17 12:45 | Progress Note ---
Assessment and Plan Assessment and plan: 50-year-old female with known history of hypertension, diabetes mellitus and CHF presenting to the emergency room today complaining of chest pain and shortness of breath. Symptoms onset started sometime this afternoon and seems to be getting worse. Chest pain is nonradiating. Symptoms are better with resting gets worse upon exertion. She denies any cough, no fever or chills, no nausea vomiting, no abdominal pain, no diarrhea. Patient denies any recent travel and no sick contacts. Denies any contact with anyone with COVID-19. Work-up in the emergency room today, chest x-ray shows pleural effusion. Troponin slightly elevated. Patient is being admitted for NSTEMI and CHF. (1) NSTEMI (non-ST elevated myocardial infarction) Current Visit: Yes Status: Acute Plan to address problem: We will trend serial cardiac enzymes. Patient placed on daily aspirin, sublingual nitroglycerin as needed for chest pain. She has been started on heparin drip. Consult placed to cardiology for evaluation. (2) CHF (congestive heart failure) Current Visit: Yes Status: Acute Qualifiers: Heart failure type: unspecified Heart failure chronicity: acute on chronic Qualified Code(s): I50.9 - Heart failure, unspecified Plan to address problem: We will monitor daily weights, inputs and outputs will be closely monitored. Patient will be scheduled for echocardiogram. (3) Diabetes mellitus Current Visit: Yes Status: Acute Plan to address problem: Patient placed on sliding scale insulin. Will monitor Accu-Cheks closely. (4) CVA (5) severe combined metabolic encephalopathy with presumed hypoxic encephalopathy (7) DVT prophylaxis Current Visit: Yes Status: Acute Plan to address problem: Patient currently on anticoagulation. (5) Full code status Current Visit: Yes Status: Acute Plan to address problem: Patient is full code. 08/10/2020 -Patient is admitted for the management of non-STEMI and CHF. Patient is on heparin drip, aspirin, IV Lasix. Monitor in and out. Cardiology is following the patient. Diabetes mellitus with hyperglycemia; blood glucose was above 400 and I started the patient on long-acting insulin, Humalog AC and sliding scale insulin, will follow hemoglobin A1c level. -Continue inpatient care 08/11/20 -Patient had echo showed EF of 10 to 15%, with diastolic dysfunction. Patient had echo in 2015 and had EF of 15 to 20%. Patient started on metoprolol, and lisinopril. Blood pressure is well controlled. Continue with IV Lasix. Cardiology is following and will do ischemic work-up on Friday. Patient's hemoglobin A1c is 15.1, has hyperglycemia, and started on Lantus and sliding scale insulin and AC Humalog. Blood pressure this morning was 64 and I discontinued the AC Humalog, monitor blood sugar and adjust insulin as needed. -Disposition continue inpatient care. -I have been notified with nursing staff that Ms Perez has altered mental status, I went and evaluated her and patient was altered. Patient has strong pulse, was on oxygen and saturation was ok. No fever. Blood sugar was checked and was 135 but earlier patient had hypoglycemia and was treated with dextrose and insulin discontinued put on D5w. I called code stroke and stat CT, head, CTA head & neck was done and was unrevealing. MRI was done and showed extensive acute infarction. Neurology was consulted and discussed with Dr Flores and she said continue with heparin drip, no other recommendations. she said SAL but patient had LV thrombus on TTE and there is no need to It. patient was evaluated by cardiology Echo showed EF 10-15%, LV thrombus and patient is on heparin drip and other appropriate CHF treatment. Patient was not following with physician and was not taking any medications and her a1c was 15.1. Patient was diagnosed with CHF with EF of 10-15% 4 years ago and didn't have any follow ups and she said sha has no insurance. I called and discussed with her Spouse Priya over the phone. She said patient doesn't want resucitation or intubation. she now DNR/DNI. Priya Riley @[phone]. Prognosis is very poor. 08/12/20 -Extensive acute infarction. Acute on chronic systolic CHF, left ventricular thrombus. Patient is on heparin drip. Cardiology is following. Neurology recommendations noted. Prognosis is poor. Will follow. Patient is DNR/DNI. If no improvement in her mental status I will put OG tube feeding for now. Management plan discussed with our spouse yesterday. 08/13/2020; extensive acute CVA, neurology consult appreciated. Acute on chronic systolic CHF, left ventricular apical thrombus. Continue with heparin drip. Cardiology is following the patient. Patient is DNR/DNI. Patient is on OG tube feeding. Prognosis is poor. Discussed with her spouse Priya Riley @[phone]. elevated liver enzymes; trending up. Ammonia level is going up despite lactulose. 08/14: Patient remains grossly unresponsive. I did discuss with patient's spouse Priya I did update her on all the findings so far which includes the CVA and her unresponsiveness she verbalized understanding. Also discussed advance care planning including consideration for hospice she would like to see her before making the decision 35 minutes spent. Setting communicated also to the supportive employment case manager. I also discussed with the technical expert per their recommendation no further input is beneficial from their standpoint. 08/15: Unfortunately remains unresponsive. spoke to Ms Powers, she will like to get information About Hospice and understands that her prognosis is poor. Hospi ce consult placed. Start Emperic abx. for noted low grade fever 08/16: No new change, still with arrythmia. Hospice ongoing, if approved will discharge today, no on statin due to the Elevated Transaminitis 08/17: Patient continues on tube feeds and heparin drip. Awaiting hospice placement. Will discuss with family about potentially discontinuing all this medication instituting palliative care. Overnight still on the monitor has some arrhythmias which cardiology is managing closely. Very poor prognosis. History Interval history: Patient seen and examined, remains grossly unresponsive. Hospitalist Physical - Physical exam Narrative exam: On intranasal oxygen The patient appeared well nourished and normally developed. Otherwise unresponsive Vital signs as documented. Head exam is unremarkable. No scleral icterus . Neck is with jugular venous distension Lungs are clear to auscultation. Cardiac exam reveals regular rate and Rhythm. Tachycardic Abdominal exam reveals normal bowel sounds, nontender, no organomegaly. Extremities are nonedematous and both femoral and pedal pulses are normal. QUARTER SEAMER: Altered mental status - Constitutional Vitals: Temp Pulse Resp BP Pulse Ox 99.1 F 82 17 106/71 100 08/17/20 07:16 08/17/20 07:16 08/17/20 03:47 08/17/20 07:16 08/17/20 10:22 General appearance: Present: no acute distress HEART Score - HEART Score EKG: Non-specific Age: 45-65 Risk factors: > 3 risk factors or hx of atherosclerotic disease Troponin: Troponin T 0.056 ng/mL (0.00-0.029) H 08/10/20 07:39 Troponin: > 3x normal limit Results - Labs CBC & Chem 7: 08/17/20 05:27 08/16/20 05:44 Labs: Laboratory Last Values WBC 11.9 K/mm3 (4.5-11.0) H 08/16/20 05:44 RBC 4.56 M/mm3 (3.65-5.03) 08/16/20 05:44 Hgb 11.0 gm/dl (10.1-14.3) 08/17/20 05:27 Hct 35.7 % (30.3-42.9) 08/17/20 05:27 MCV 77 fl (79-97) L 08/16/20 05:44 MCH 24 pg (28-32) L 08/16/20 05:44 MCHC 31 % (30-34) 08/16/20 05:44 RDW 19.3 % (13.2-15.2) H 08/16/20 05:44 Plt Count 121 K/mm3 (140-440) L 08/17/20 05:27 Lymph % (Auto) 28.3 % (13.4-35.0) 08/11/20 05:15 [place] % (Auto) 10.8 % (0.0-7.3) H 08/11/20 05:15 Eos % (Auto) 0.4 % (0.0-4.3) 08/11/20 05:15 Baso % (Auto) 1.2 % (0.0-1.8) 08/11/20 05:15 Lymph # (Auto) 2.9 K/mm3 (1.2-5.4) 08/11/20 05:15 [place] # (Auto) 1.1 K/mm3 (0.0-0.8) H 08/11/20 05:15 Eos # (Auto) 0.0 K/mm3 (0.0-0.4) 08/11/20 05:15 Baso # (Auto) 0.1 K/mm3 (0.0-0.1) 08/11/20 05:15 Add Manual Diff Complete 08/14/20 04:42 Total Counted 100 08/14/20 04:42 Seg Neutrophils % Bar Waiter/Waitress 08/14/20 04:42 Seg Neuts % (Manual) 96.0 % (40.0-70.0) H 08/14/20 04:42 Lymphocytes % (Manual) 1.0 % (13.4-35.0) L 08/14/20 04:42 Monocytes % (Manual) 3.0 % (0.0-7.3) 08/14/20 04:42 Nucleated RBC % Not Reportable 08/14/20 04:42 Seg Neutrophils # 6.0 K/mm3 (1.8-7.7) 08/11/20 05:15 Seg Neutrophils # Man 15.7 K/mm3 (1.8-7.7) H 08/14/20 04:42 Band Neutrophils # 0.0 K/mm3 08/14/20 04:42 Lymphocytes # (Manual) 0.2 K/mm3 (1.2-5.4) L 08/14/20 04:42 Abs React Lymphs (Man) 0.0 K/mm3 08/14/20 04:42 Monocytes # (Manual) 0.5 K/mm3 (0.0-0.8) 08/14/20 04:42 Eosinophils # (Manual) 0.0 K/mm3 (0.0-0.4) 08/14/20 04:42 Basophils # (Manual) 0.0 K/mm3 (0.0-0.1) 08/14/20 04:42 Metamyelocytes # 0.0 K/mm3 08/14/20 04:42 Myelocytes # 0.0 K/mm3 08/14/20 04:42 Promyelocytes # 0.0 K/mm3 08/14/20 04:42 Blast Cells # 0.0 K/mm3 08/14/20 04:42 WBC Morphology Not Reportable 08/14/20 04:42 Hypersegmented Neuts Rare 08/14/20 04:42 Hyposegmented Neuts Not Reportable 08/14/20 04:42 Hypogranular Neuts Not Reportable 08/14/20 04:42 Smudge Cells Not Reportable 08/14/20 04:42 Toxic Granulation Not Reportable 08/14/20 04:42 Toxic Vacuolation Not Reportable 08/14/20 04:42 Dohle Bodies Not Reportable 08/14/20 04:42 Pelger-Huet Anomaly Not Reportable 08/14/20 04:42 Fadumo Rods Not Reportable 08/14/20 04:42 Platelet Estimate Cons 08/14/20 04:42 Clumped Platelets Not Reportable 08/14/20 04:42 Plt Clumps, EDTA Not Reportable 08/14/20 04:42 Large Platelets Not Reportable 08/14/20 04:42 Giant Platelets Not Reportable 08/14/20 04:42 Platelet Satelliting Not Reportable 08/14/20 04:42 Plt Morphology Comment Not Reportable 08/14/20 04:42 RBC Morphology Not Reportable 08/14/20 04:42 Dimorphic RBCs Not Reportable 08/14/20 04:42 Polychromasia Not Reportable 08/14/20 04:42 Hypochromasia 1+ 08/14/20 04:42 Poikilocytosis Not Reportable 08/14/20 04:42 Anisocytosis 1+ 08/14/20 04:42 Microcytosis Not Reportable 08/14/20 04:42 Macrocytosis Not Reportable 08/14/20 04:42 Spherocytes Not Reportable 08/14/20 04:42 Pappenheimer Bodies Not Reportable 08/14/20 04:42 Sickle Cells Not Reportable 08/14/20 04:42 Target Cells Not Reportable 08/14/20 04:42 Tear Drop Cells Not Reportable 08/14/20 04:42 Ovalocytes Not Reportable 08/14/20 04:42 Helmet Cells Not Reportable 08/14/20 04:42 [place] Bodies Not Reportable 08/14/20 04:42 [place] Rings Not Reportable 08/14/20 04:42 [place] Cells Not Reportable 08/14/20 04:42 Bite Cells Not Reportable 08/14/20 04:42 Crenated Cell Not Reportable 08/14/20 04:42 Elliptocytes Not Reportable 08/14/20 04:42 Acanthocytes (Spur) Not Reportable 08/14/20 04:42 Rouleaux Not Reportable 08/14/20 04:42 Hemoglobin C Crystals Not Reportable 08/14/20 04:42 Schistocytes Not Reportable 08/14/20 04:42 Malaria parasites Not Reportable 08/14/20 04:42 Mauro Bodies Not Reportable 08/14/20 04:42 Hem Pathologist Commnt No 08/14/20 04:42 PT 17.7 Sec. (12.2-14.9) H 08/14/20 09:02 INR 1.46 (0.87-1.13) H 08/14/20 09:02 APTT 88.7 Sec. (24.2-36.6) H* 08/14/20 09:02 Heparin Anti-Xa Level 0.42 U.I./ml (0.3-0.7) 08/17/20 09:04 Sodium 137 mmol/L (137-145) 08/16/20 05:44 Potassium 3.6 mmol/L (3.6-5.0) 08/16/20 05:44 Chloride 100.8 mmol/L (98-107) 08/16/20 05:44 Carbon Dioxide 30 mmol/L (22-30) 08/16/20 05:44 Anion Gap 10 mmol/L 08/16/20 05:44 BUN 36 mg/dL (7-17) H 08/16/20 05:44 Creatinine 0.6 mg/dL (0.6-1.2) 08/16/20 05:44 Estimated GFR > 60 ml/min 08/16/20 05:44 BUN/Creatinine Ratio 60 % 08/16/20 05:44 Glucose 139 mg/dL (65-100) H 08/16/20 05:44 POC Glucose 103 mg/dL (70-105) 08/17/20 05:53 Hemoglobin A1c 15.1 % (4-6) H 08/10/20 11:38 Calcium 7.4 mg/dL (8.4-10.2) L 08/16/20 05:44 Magnesium 1.60 mg/dL (1.7-2.3) L 08/11/20 18:08 Total Bilirubin 1.50 mg/dL (0.1-1.2) H 08/16/20 05:44 Direct Bilirubin 1.5 mg/dL (0-0.2) H 08/14/20 04:42 Indirect Bilirubin 1.0 mg/dL 08/14/20 04:42 AST 267 units/L (5-40) H 08/16/20 05:44 ALT 455 units/L (7-56) H 08/16/20 05:44 Alkaline Phosphatase 535 units/L (35-129) H 08/16/20 05:44 Ammonia 96.0 umol/L (25-60) H 08/14/20 04:42 Troponin T 0.056 ng/mL (0.00-0.029) H 08/10/20 07:39 NT-Pro-B Natriuret Pep 1579 pg/mL (0-450) H 08/09/20 17:28 Total Protein 5.0 g/dL (6.3-8.2) L 08/16/20 05:44 Albumin 2.3 g/dL (3.9-5) L 08/16/20 05:44 Albumin/Globulin Ratio 0.9 % 08/16/20 05:44 Triglycerides 79 mg/dL (2-149) 08/09/20 17:28 Cholesterol 189 mg/dL (50-199) 08/09/20 17:28 LDL Cholesterol Direct 104 mg/dL (50-130) 08/09/20 17:28 HDL Cholesterol 91 mg/dL (40-59) H 08/09/20 17:28 Cholesterol/HDL Ratio 2.07 % 08/09/20 17:28 Lipase 49 units/L (13-60) 08/09/20 17:28 Urine Color Yellow (Yellow) 08/09/20 Unknown Urine Turbidity Clear (Clear) 08/09/20 Unknown Urine pH 6.0 (5.0-7.0) 08/09/20 Unknown Ur Specific [place] 1.040 (1.003-1.030) H 08/09/20 Unknown Urine Protein 100 mg/dl mg/dL (Negative) 08/09/20 Unknown Urine Glucose (UA) >=500 mg/dL (Negative) 08/09/20 Unknown Urine Ketones 20 mg/dL (Negative) 08/09/20 Unknown Urine Blood Neg (Negative) 08/09/20 Unknown Urine Nitrite Neg (Negative) 08/09/20 Unknown Urine Bilirubin Neg (Negative) 08/09/20 Unknown Urine Urobilinogen 2.0 mg/dL (<2.0) 08/09/20 Unknown Ur Leukocyte Esterase Neg (Negative) 08/09/20 Unknown Urine WBC (Auto) 5.0 /HPF (0.0-6.0) 08/09/20 Unknown Urine RBC (Auto) 8.0 /HPF (0.0-6.0) 08/09/20 Unknown U Epithel Cells (Auto) 4.0 /HPF (0-13.0) 08/09/20 Unknown Coronavirus (PCR) Negative (Negative) 08/16/20 10:00 Hepatitis A IgM Ab Non-reactive (NonReactive) 08/12/20 11:56 Hep Bs Antigen Non-reactive (Negative) 08/12/20 11:56 Hep B Core IgM Ab Non-reactive (NonReactive) 08/12/20 11:56 Hepatitis C Antibody Non-reactive (NonReactive) 08/12/20 11:56 [place]/IV: Voiding Method External Female Catheter Active Medications - Current Medications Current Medications: Generic Name Dose Route Start Last Admin Trade Name Freq PRN Reason Stop Dose Admin Acetaminophen 650 mg 08/13/20 20:22 08/16/20 23:50 Acetaminophen 325 Mg/10.15 Ml Oral Liqd Unit Dose FEEDTUBE 650 mg Q6H PRN Administration Pain, Mild (1-3) Lipase/Protease/Amylase 1 each 08/12/20 12:36 Lipase 10,500/Protease 25,000/Amylase 43,750 (Units) Dr Ospina FEEDTUBE PRN PRN For Clogged Feeding Tube Aspirin 81 mg 08/11/20 10:00 08/17/20 10:40 Aspirin 81 Mg Tab Chew PO 81 mg QDAY FESTUS Administration Dextrose 0 ml 08/10/20 00:43 08/11/20 19:32 Dextrose 50% In Water (25gm) 50 Ml Syringe IV 50 ml Q30MIN PRN Administration Hypoglycemia Protocol Furosemide 40 mg 08/15/20 10:00 08/17/20 10:41 Furosemide 40 Mg/4 Ml Inj IV 40 mg QDAY FESTUS Administration Heparin Sodium (Porcine) 2,300 unit 08/14/20 08:24 Heparin 10,000 Units/10 Ml Vial 40 unit/kg (2300 unit) IV Q6H PRN Anti-Xa Assay < 0.1 units/ml Heparin Sodium/Sodium Chloride 25,000 unit in 500 mls @ 16 mls/hr 08/14/20 09:00 08/16/20 11:27 Heparin/ 0.45% Nacl-25,000 Unit/500 Ml IV 850 units/hr TITRATE FESTUS 17 mls/hr Titration Protocol 800 UNITS/HR Cefepime HCl 1 gm in 100 mls @ 200 mls/hr 08/15/20 14:00 08/17/20 06:33 Cefepime/Ns 1 Gm/100 Ml IV 08/18/20 13:59 200 mls/hr Q8H FESTUS Administration Protocol Insulin Glargine 20 units 08/14/20 11:00 08/17/20 08:54 Insulin Glargine 100 Units/Ml SUB-Q 20 units QAMDIAB FESTUS Administration Insulin Human Lispro 0 unit 08/12/20 00:00 08/17/20 07:03 Insulin Lispro 100 Unit/Ml SUB-Q Not Given Q6HR [facility] Protocol Lactulose 20 gm 08/12/20 18:00 08/17/20 07:02 Lactulose 20 Gm/30 Ml Oral Liqd PO Not Given Q6HR [facility] Lisinopril 5 mg 08/11/20 10:00 08/17/20 10:41 Lisinopril 5 Mg Tab PO Not Given QDAY [facility] Magnesium Hydroxide 30 ml 08/10/20 00:43 Magnesium Hydroxide (Mom) Oral Liqd Udc PO Q4H PRN Constipation Metoprolol Tartrate 50 mg 08/11/20 22:00 08/17/20 10:40 Metoprolol Tartrate 50 Mg Tab PO 50 mg BID [facility] Administration Nitroglycerin 0.4 mg 08/10/20 00:43 Nitroglycerin 0.4 Mg Tab Subl SL Q5M PRN Chest Pain Ondansetron HCl 4 mg 08/10/20 00:43 08/10/20 23:32 Ondansetron 4 Mg/2 Ml Inj IV 4 mg Q8H PRN Administration Nausea And Vomiting Simple Syrup 15 ml 08/12/20 12:36 Simple Syrup 15 Ml FEEDTUBE PRN PRN Hypoglycemia Simple Syrup 30 ml 08/12/20 12:36 Simple Syrup 15 Ml FEEDTUBE PRN PRN Hypoglycemia Sodium Bicarbonate 325 mg 08/12/20 12:36 Sodium Bicarbonate 325 Mg Tab FEEDTUBE PRN PRN For Clogged Feeding Tube Sodium Chloride 10 ml 08/10/20 10:00 08/16/20 22:58 Sodium Chloride 0.9% 10 Ml Flush Syringe IV 10 ml BID FESTUS Administration Sodium Chloride 10 ml 08/10/20 00:43 08/16/20 06:09 Sodium Chloride 0.9% 10 Ml Flush Syringe IV 10 ml PRN PRN Administration LINE FLUSH Nutrition/Malnutrition Assess - Dietary Evaluation Nutrition/Malnutrition Findings: Nutrition Notes Start: 08/10/20 11:18 Freq: Status: Active Protocol: Document 08/16/20 11:45 CW (Rec: 08/16/20 11:50 CW [id number]) Nutrition Notes Initial or Follow up Reassessment Current Diagnosis Diabetes,Heart Failure Other Pertinent Diagnosis NSTEMI, extensive acute infarction Current Diet Glucerna 1.2 at 40 ml/hr Labs/Tests BUN 36 BG 139 Pertinent Medications Lantus Lasix Height 5 ft 5 in Weight 56.6 kg [place] Body Weight (kg) 56.81 BMI 20.7 Weight change and time frame Weight loss likely related to diuertics usage. Weight Status Appropriate Subjective/Other Information FU for TF start. TF is running at goal and is being well tolerated. Slight temporal wasting noted. Percent of energy/protein needs met: 80%98% Burn Absent Trauma Absent Current % PO Negligible Minimum of two criteria No Muscle Mass Moderate Depletion (severe) Fluid Accumulation Mild (non-severe) #1 Nutrition Diagnosis Inadequate oral intake Diagnosis Progress(for reassessment Continues documentation) Is patient on ventilator? No Is Patient Ambulatory and/or Out of Bed No REE-([place] Jeor-confined to bed) 1434.276 Calculation Used for Recommendations [place] or Additional Notes Pro needs 0.8-1g/k-59g/ day Fluid needs 1ml/kcal Nutrition Intervention Nutrition Support: Glucerna 1.2 at 40ml/hr with 65ml water flush q4h. Kcal 1,152 Protein (gm) 58 Carbohydrates (gm) 110 Fat (gm) 58 Fluid (mL) 773 Fiber (gm) 15 Goal #1 TF tolerance Goal #2 TF at goal rate to meet at least 75% energy and pro needs Anticipated Discharge Needs: Unable to determine at this time Follow-Up By: 08/18/20 Additional Comments F/U TF tolerance and POC
[2020-08-18 05:38] LABS: Hematocrit 35.5 % (30.3-42.9); Hemoglobin 10.9 gm/dl (10.1-14.3)
[2020-08-18] MEDS: LACTULOSE 20 GM/30 ML ORAL LIQD PO SCH ×4 (06:23→19:45)
[2020-08-18] MEDS: CEFEPIME/NS 1 GM/100 ML 1 GM/100 ML BAG IV SCH (06:24)
[2020-08-18] MEDS: INSULIN LISPRO 100 UNIT/ML SUB-Q SCH ×3 (06:26→18:44)
[2020-08-18] MEDS: INSULIN GLARGINE 100 UNITS/ML SUB-Q SCH (10:30)
[2020-08-18] MEDS: FUROSEMIDE 40 MG/4 ML INJ IV SCH (10:42)
[2020-08-18] MEDS: ASPIRIN 81 MG TAB CHEW PO SCH (10:42)
[2020-08-18] MEDS: LISINOPRIL 5 MG TAB PO SCH (10:43)
[2020-08-18] MEDS: METOPROLOL TARTRATE 50 MG TAB PO SCH ×2 (10:51→21:35)
--- NOTE | 2020-08-18 11:49 | Progress Note ---
Assessment and Plan Assessment and plan: 50-year-old female with known history of hypertension, diabetes mellitus and CHF presenting to the emergency room today complaining of chest pain and shortness of breath. Symptoms onset started sometime this afternoon and seems to be getting worse. Chest pain is nonradiating. Symptoms are better with resting gets worse upon exertion. She denies any cough, no fever or chills, no nausea vomiting, no abdominal pain, no diarrhea. Patient denies any recent travel and no sick contacts. Denies any contact with anyone with COVID-19. Work-up in the emergency room today, chest x-ray shows pleural effusion. Troponin slightly elevated. Patient is being admitted for NSTEMI and CHF. (1) NSTEMI (non-ST elevated myocardial infarction) Current Visit: Yes Status: Acute Plan to address problem: We will trend serial cardiac enzymes. Patient placed on daily aspirin, sublingual nitroglycerin as needed for chest pain. She has been started on heparin drip. Consult placed to cardiology for evaluation. (2) CHF (congestive heart failure) Current Visit: Yes Status: Acute Qualifiers: Heart failure type: unspecified Heart failure chronicity: acute on chronic Qualified Code(s): I50.9 - Heart failure, unspecified Plan to address problem: We will monitor daily weights, inputs and outputs will be closely monitored. Patient will be scheduled for echocardiogram. (3) Diabetes mellitus Current Visit: Yes Status: Acute Plan to address problem: Patient placed on sliding scale insulin. Will monitor Accu-Cheks closely. (4) CVA (5) severe combined metabolic encephalopathy with presumed hypoxic encephalopathy (7) DVT prophylaxis Current Visit: Yes Status: Acute Plan to address problem: Patient currently on anticoagulation. (5) Full code status Current Visit: Yes Status: Acute Plan to address problem: Patient is full code. 08/10/2020 -Patient is admitted for the management of non-STEMI and CHF. Patient is on heparin drip, aspirin, IV Lasix. Monitor in and out. Cardiology is following the patient. Diabetes mellitus with hyperglycemia; blood glucose was above 400 and I started the patient on long-acting insulin, Humalog AC and sliding scale insulin, will follow hemoglobin A1c level. -Continue inpatient care 08/11/20 -Patient had echo showed EF of 10 to 15%, with diastolic dysfunction. Patient had echo in 2015 and had EF of 15 to 20%. Patient started on metoprolol, and lisinopril. Blood pressure is well controlled. Continue with IV Lasix. Cardiology is following and will do ischemic work-up on Friday. Patient's hemoglobin A1c is 15.1, has hyperglycemia, and started on Lantus and sliding scale insulin and AC Humalog. Blood pressure this morning was 64 and I discontinued the AC Humalog, monitor blood sugar and adjust insulin as needed. -Disposition continue inpatient care. -I have been notified with nursing staff that Ms Perez has altered mental status, I went and evaluated her and patient was altered. Patient has strong pulse, was on oxygen and saturation was ok. No fever. Blood sugar was checked and was 135 but earlier patient had hypoglycemia and was treated with dextrose and insulin discontinued put on D5w. I called code stroke and stat CT, head, CTA head & neck was done and was unrevealing. MRI was done and showed extensive acute infarction. Neurology was consulted and discussed with Dr Flores and she said continue with heparin drip, no other recommendations. she said SAL but patient had LV thrombus on TTE and there is no need to It. patient was evaluated by cardiology Echo showed EF 10-15%, LV thrombus and patient is on heparin drip and other appropriate CHF treatment. Patient was not following with physician and was not taking any medications and her a1c was 15.1. Patient was diagnosed with CHF with EF of 10-15% 4 years ago and didn't have any follow ups and she said sha has no insurance. I called and discussed with her Spouse Priya over the phone. She said patient doesn't want resucitation or intubation. she now DNR/DNI. Priya Riley @[phone]. Prognosis is very poor. 08/12/20 -Extensive acute infarction. Acute on chronic systolic CHF, left ventricular thrombus. Patient is on heparin drip. Cardiology is following. Neurology recommendations noted. Prognosis is poor. Will follow. Patient is DNR/DNI. If no improvement in her mental status I will put OG tube feeding for now. Management plan discussed with our spouse yesterday. 08/13/2020; extensive acute CVA, neurology consult appreciated. Acute on chronic systolic CHF, left ventricular apical thrombus. Continue with heparin drip. Cardiology is following the patient. Patient is DNR/DNI. Patient is on OG tube feeding. Prognosis is poor. Discussed with her spouse Priya Riley @[phone]. elevated liver enzymes; trending up. Ammonia level is going up despite lactulose. 08/14: Patient remains grossly unresponsive. I did discuss with patient's spouse Priya I did update her on all the findings so far which includes the CVA and her unresponsiveness she verbalized understanding. Also discussed advance care planning including consideration for hospice she would like to see her before making the decision 35 minutes spent. Setting communicated also to the spring encaser. I also discussed with the head control clerk per their recommendation no further input is beneficial from their standpoint. 08/15: Unfortunately remains unresponsive. spoke to Ms Powers, she will like to get information About Hospice and understands that her prognosis is poor. Hospi ce consult placed. Start Emperic abx. for noted low grade fever 08/16: No new change, still with arrythmia. Hospice ongoing, if approved will discharge today, no on statin due to the Elevated Transaminitis 08/17: Patient continues on tube feeds and heparin drip. Awaiting hospice placement. Will discuss with family about potentially discontinuing all this medication instituting palliative care. Overnight still on the monitor has some arrhythmias which cardiology is managing closely. Very poor prognosis. 08/18: Continue supportive care at this time. No new addition to management plan. History Interval history: Patient seen and examined, remains grossly unresponsive. No other adverse event reported Case management awaiting hospice placement Hospitalist Physical - Physical exam Narrative exam: On intranasal oxygen The patient appeared well nourished and normally developed. Otherwise unresponsive Vital signs as documented. Head exam is unremarkable. No scleral icterus . Neck is with jugular venous distension Lungs are clear to auscultation. Cardiac exam reveals regular rate and Rhythm. Tachycardic Abdominal exam reveals normal bowel sounds, nontender, no organomegaly. Extremities are nonedematous and both femoral and pedal pulses are normal. 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 mental status - Constitutional Vitals: Temp Pulse Resp BP Pulse Ox 98.1 F 97 H 18 121/88 96 08/18/20 08:37 08/18/20 10:51 08/18/20 03:40 08/18/20 10:51 08/18/20 09:22 General appearance: Present: no acute distress HEART Score - HEART Score EKG: Non-specific Age: 45-65 Risk factors: > 3 risk factors or hx of atherosclerotic disease Troponin: Troponin T 0.056 ng/mL (0.00-0.029) H 08/10/20 07:39 Troponin: > 3x normal limit Results - Labs CBC & Chem 7: 08/18/20 04:50 08/16/20 05:44 Labs: Laboratory Last Values WBC 11.9 K/mm3 (4.5-11.0) H 08/16/20 05:44 RBC 4.56 M/mm3 (3.65-5.03) 08/16/20 05:44 Hgb 10.9 gm/dl (10.1-14.3) 08/18/20 04:50 Hct 35.5 % (30.3-42.9) 08/18/20 04:50 MCV 77 fl (79-97) L 08/16/20 05:44 MCH 24 pg (28-32) L 08/16/20 05:44 MCHC 31 % (30-34) 08/16/20 05:44 RDW 19.3 % (13.2-15.2) H 08/16/20 05:44 Plt Count 224 K/mm3 (140-440) 08/18/20 04:50 Lymph % (Auto) 28.3 % (13.4-35.0) 08/11/20 05:15 [place] % (Auto) 10.8 % (0.0-7.3) H 08/11/20 05:15 Eos % (Auto) 0.4 % (0.0-4.3) 08/11/20 05:15 Baso % (Auto) 1.2 % (0.0-1.8) 08/11/20 05:15 Lymph # (Auto) 2.9 K/mm3 (1.2-5.4) 08/11/20 05:15 [place] # (Auto) 1.1 K/mm3 (0.0-0.8) H 08/11/20 05:15 Eos # (Auto) 0.0 K/mm3 (0.0-0.4) 08/11/20 05:15 Baso # (Auto) 0.1 K/mm3 (0.0-0.1) 08/11/20 05:15 Add Manual Diff Complete 08/14/20 04:42 Total Counted 100 08/14/20 04:42 Seg Neutrophils % Clinical Quality Assurance Associate 08/14/20 04:42 Seg Neuts % (Manual) 96.0 % (40.0-70.0) H 08/14/20 04:42 Lymphocytes % (Manual) 1.0 % (13.4-35.0) L 08/14/20 04:42 Monocytes % (Manual) 3.0 % (0.0-7.3) 08/14/20 04:42 Nucleated RBC % Not Reportable 08/14/20 04:42 Seg Neutrophils # 6.0 K/mm3 (1.8-7.7) 08/11/20 05:15 Seg Neutrophils # Man 15.7 K/mm3 (1.8-7.7) H 08/14/20 04:42 Band Neutrophils # 0.0 K/mm3 08/14/20 04:42 Lymphocytes # (Manual) 0.2 K/mm3 (1.2-5.4) L 08/14/20 04:42 Abs React Lymphs (Man) 0.0 K/mm3 08/14/20 04:42 Monocytes # (Manual) 0.5 K/mm3 (0.0-0.8) 08/14/20 04:42 Eosinophils # (Manual) 0.0 K/mm3 (0.0-0.4) 08/14/20 04:42 Basophils # (Manual) 0.0 K/mm3 (0.0-0.1) 08/14/20 04:42 Metamyelocytes # 0.0 K/mm3 08/14/20 04:42 Myelocytes # 0.0 K/mm3 08/14/20 04:42 Promyelocytes # 0.0 K/mm3 08/14/20 04:42 Blast Cells # 0.0 K/mm3 08/14/20 04:42 WBC Morphology Not Reportable 08/14/20 04:42 Hypersegmented Neuts Rare 08/14/20 04:42 Hyposegmented Neuts Not Reportable 08/14/20 04:42 Hypogranular Neuts Not Reportable 08/14/20 04:42 Smudge Cells Not Reportable 08/14/20 04:42 Toxic Granulation Not Reportable 08/14/20 04:42 Toxic Vacuolation Not Reportable 08/14/20 04:42 Dohle Bodies Not Reportable 08/14/20 04:42 Pelger-Huet Anomaly Not Reportable 08/14/20 04:42 Fadumo Rods Not Reportable 08/14/20 04:42 Platelet Estimate Cons 08/14/20 04:42 Clumped Platelets Not Reportable 08/14/20 04:42 Plt Clumps, EDTA Not Reportable 08/14/20 04:42 Large Platelets Not Reportable 08/14/20 04:42 Giant Platelets Not Reportable 08/14/20 04:42 Platelet Satelliting Not Reportable 08/14/20 04:42 Plt Morphology Comment Not Reportable 08/14/20 04:42 RBC Morphology Not Reportable 08/14/20 04:42 Dimorphic RBCs Not Reportable 08/14/20 04:42 Polychromasia Not Reportable 08/14/20 04:42 Hypochromasia 1+ 08/14/20 04:42 Poikilocytosis Not Reportable 08/14/20 04:42 Anisocytosis 1+ 08/14/20 04:42 Microcytosis Not Reportable 08/14/20 04:42 Macrocytosis Not Reportable 08/14/20 04:42 Spherocytes Not Reportable 08/14/20 04:42 Pappenheimer Bodies Not Reportable 08/14/20 04:42 Sickle Cells Not Reportable 08/14/20 04:42 Target Cells Not Reportable 08/14/20 04:42 Tear Drop Cells Not Reportable 08/14/20 04:42 Ovalocytes Not Reportable 08/14/20 04:42 Helmet Cells Not Reportable 08/14/20 04:42 [place] Bodies Not Reportable 08/14/20 04:42 [place] Rings Not Reportable 08/14/20 04:42 [place] Cells Not Reportable 08/14/20 04:42 Bite Cells Not Reportable 08/14/20 04:42 Crenated Cell Not Reportable 08/14/20 04:42 Elliptocytes Not Reportable 08/14/20 04:42 Acanthocytes (Spur) Not Reportable 08/14/20 04:42 Rouleaux Not Reportable 08/14/20 04:42 Hemoglobin C Crystals Not Reportable 08/14/20 04:42 Schistocytes Not Reportable 08/14/20 04:42 Malaria parasites Not Reportable 08/14/20 04:42 Mauro Bodies Not Reportable 08/14/20 04:42 Hem Pathologist Commnt No 08/14/20 04:42 PT 17.7 Sec. (12.2-14.9) H 08/14/20 09:02 INR 1.46 (0.87-1.13) H 08/14/20 09:02 APTT 88.7 Sec. (24.2-36.6) H* 08/14/20 09:02 Heparin Anti-Xa Level 0.13 U.I./ml (0.3-0.7) L 08/18/20 09:27 Sodium 137 mmol/L (137-145) 08/16/20 05:44 Potassium 3.6 mmol/L (3.6-5.0) 08/16/20 05:44 Chloride 100.8 mmol/L (98-107) 08/16/20 05:44 Carbon Dioxide 30 mmol/L (22-30) 08/16/20 05:44 Anion Gap 10 mmol/L 08/16/20 05:44 BUN 36 mg/dL (7-17) H 08/16/20 05:44 Creatinine 0.6 mg/dL (0.6-1.2) 08/16/20 05:44 Estimated GFR > 60 ml/min 08/16/20 05:44 BUN/Creatinine Ratio 60 % 08/16/20 05:44 Glucose 139 mg/dL (65-100) H 08/16/20 05:44 POC Glucose 180 mg/dL (70-105) H 08/18/20 10:05 Hemoglobin A1c 15.1 % (4-6) H 08/10/20 11:38 Calcium 7.4 mg/dL (8.4-10.2) L 08/16/20 05:44 Magnesium 1.60 mg/dL (1.7-2.3) L 08/11/20 18:08 Total Bilirubin 1.50 mg/dL (0.1-1.2) H 08/16/20 05:44 Direct Bilirubin 1.5 mg/dL (0-0.2) H 08/14/20 04:42 Indirect Bilirubin 1.0 mg/dL 08/14/20 04:42 AST 267 units/L (5-40) H 08/16/20 05:44 ALT 455 units/L (7-56) H 08/16/20 05:44 Alkaline Phosphatase 535 units/L (35-129) H 08/16/20 05:44 Ammonia 96.0 umol/L (25-60) H 08/14/20 04:42 Troponin T 0.056 ng/mL (0.00-0.029) H 08/10/20 07:39 NT-Pro-B Natriuret Pep 1579 pg/mL (0-450) H 08/09/20 17:28 Total Protein 5.0 g/dL (6.3-8.2) L 08/16/20 05:44 Albumin 2.3 g/dL (3.9-5) L 08/16/20 05:44 Albumin/Globulin Ratio 0.9 % 08/16/20 05:44 Triglycerides 79 mg/dL (2-149) 08/09/20 17:28 Cholesterol 189 mg/dL (50-199) 08/09/20 17:28 LDL Cholesterol Direct 104 mg/dL (50-130) 08/09/20 17:28 HDL Cholesterol 91 mg/dL (40-59) H 08/09/20 17:28 Cholesterol/HDL Ratio 2.07 % 08/09/20 17:28 Lipase 49 units/L (13-60) 08/09/20 17:28 Urine Color Yellow (Yellow) 08/09/20 Unknown Urine Turbidity Clear (Clear) 08/09/20 Unknown Urine pH 6.0 (5.0-7.0) 08/09/20 Unknown Ur Specific [place] 1.040 (1.003-1.030) H 08/09/20 Unknown Urine Protein 100 mg/dl mg/dL (Negative) 08/09/20 Unknown Urine Glucose (UA) >=500 mg/dL (Negative) 08/09/20 Unknown Urine Ketones 20 mg/dL (Negative) 08/09/20 Unknown Urine Blood Neg (Negative) 08/09/20 Unknown Urine Nitrite Neg (Negative) 08/09/20 Unknown Urine Bilirubin Neg (Negative) 08/09/20 Unknown Urine Urobilinogen 2.0 mg/dL (<2.0) 08/09/20 Unknown Ur Leukocyte Esterase Neg (Negative) 08/09/20 Unknown Urine WBC (Auto) 5.0 /HPF (0.0-6.0) 08/09/20 Unknown Urine RBC (Auto) 8.0 /HPF (0.0-6.0) 08/09/20 Unknown U Epithel Cells (Auto) 4.0 /HPF (0-13.0) 08/09/20 Unknown Coronavirus (PCR) Negative (Negative) 08/16/20 10:00 Hepatitis A IgM Ab Non-reactive (NonReactive) 08/12/20 11:56 Hep Bs Antigen Non-reactive (Negative) 08/12/20 11:56 Hep B Core IgM Ab Non-reactive (NonReactive) 08/12/20 11:56 Hepatitis C Antibody Non-reactive (NonReactive) 08/12/20 11:56 [place]/IV: Voiding Method External Female Catheter Active Medications - Current Medications Current Medications: Generic Name Dose Route Start Last Admin Trade Name Freq PRN Reason Stop Dose Admin Acetaminophen 650 mg 08/13/20 20:22 08/16/20 23:50 Acetaminophen 325 Mg/10.15 Ml Oral Liqd Unit Dose FEEDTUBE 650 mg Q6H PRN Administration Pain, Mild (1-3) Lipase/Protease/Amylase 1 each 08/12/20 12:36 Lipase 10,500/Protease 25,000/Amylase 43,750 (Units) Dr Ospina FEEDTUBE PRN PRN For Clogged Feeding Tube Aspirin 81 mg 08/11/20 10:00 08/18/20 10:42 Aspirin 81 Mg Tab Chew PO 81 mg QDAY FESTUS Administration Dextrose 0 ml 08/10/20 00:43 08/11/20 19:32 Dextrose 50% In Water (25gm) 50 Ml Syringe IV 50 ml Q30MIN PRN Administration Hypoglycemia Protocol Furosemide 40 mg 08/15/20 10:00 08/18/20 10:42 Furosemide 40 Mg/4 Ml Inj IV 40 mg QDAY FESTUS Administration Heparin Sodium (Porcine) 2,300 unit 08/14/20 08:24 Heparin 10,000 Units/10 Ml Vial 40 unit/kg (2300 unit) IV Q6H PRN Anti-Xa Assay < 0.1 units/ml Heparin Sodium/Sodium Chloride 25,000 unit in 500 mls @ 16 mls/hr 08/14/20 09:00 08/16/20 11:27 Heparin/ 0.45% Nacl-25,000 Unit/500 Ml IV 850 units/hr TITRATE FESTUS 17 mls/hr Titration Protocol 800 UNITS/HR Cefepime HCl 1 gm in 100 mls @ 200 mls/hr 08/15/20 14:00 08/18/20 06:24 Cefepime/Ns 1 Gm/100 Ml IV 08/18/20 13:59 200 mls/hr Q8H FESTUS Administration Protocol Insulin Glargine 20 units 08/14/20 11:00 08/18/20 10:30 Insulin Glargine 100 Units/Ml SUB-Q 20 units QAMDIAB FESTUS Administration Insulin Human Lispro 0 unit 08/12/20 00:00 08/18/20 06:26 Insulin Lispro 100 Unit/Ml SUB-Q 3 unit Q6HR FESTUS Administration Protocol Lactulose 20 gm 08/12/20 18:00 08/18/20 06:23 Lactulose 20 Gm/30 Ml Oral Liqd PO 20 gm Q6HR FESTUS Administration Lisinopril 5 mg 08/11/20 10:00 08/18/20 10:43 Lisinopril 5 Mg Tab PO 5 mg QDAY FESTUS Administration Magnesium Hydroxide 30 ml 08/10/20 00:43 Magnesium Hydroxide (Mom) Oral Liqd Udc PO Q4H PRN Constipation Metoprolol Tartrate 50 mg 08/11/20 22:00 08/18/20 10:51 Metoprolol Tartrate 50 Mg Tab PO 50 mg BID FESTUS Administration Nitroglycerin 0.4 mg 08/10/20 00:43 Nitroglycerin 0.4 Mg Tab Subl SL Q5M PRN Chest Pain Ondansetron HCl 4 mg 08/10/20 00:43 08/10/20 23:32 Ondansetron 4 Mg/2 Ml Inj IV 4 mg Q8H PRN Administration Nausea And Vomiting Simple Syrup 15 ml 08/12/20 12:36 Simple Syrup 15 Ml FEEDTUBE PRN PRN Hypoglycemia Simple Syrup 30 ml 08/12/20 12:36 Simple Syrup 15 Ml FEEDTUBE PRN PRN Hypoglycemia Sodium Bicarbonate 325 mg 08/12/20 12:36 Sodium Bicarbonate 325 Mg Tab FEEDTUBE PRN PRN For Clogged Feeding Tube Sodium Chloride 10 ml 08/10/20 10:00 08/18/20 10:42 Sodium Chloride 0.9% 10 Ml Flush Syringe IV 10 ml BID FESTUS Administration Sodium Chloride 10 ml 08/10/20 00:43 08/18/20 06:24 Sodium Chloride 0.9% 10 Ml Flush Syringe IV 10 ml PRN PRN Administration LINE FLUSH Nutrition/Malnutrition Assess - Dietary Evaluation Nutrition/Malnutrition Findings: Nutrition Notes Start: 08/10/20 11 :18 Freq: Status: Active Protocol: Document 08/18/20 11:12 AL (Rec: 08/18/20 11:29 AL [id number]) Co-Sign 08/18/20 11:12 LP Nutrition Notes Initial or Follow up Reassessment Current Diagnosis Diabetes,Heart Failure Other Pertinent Diagnosis NSTEMI, extensive acute infarction Current Diet Glucerna 1.2 at 40 ml/hr Labs/Tests No new labs Pertinent Medications Humalog Lasix Height 5 ft 5 in Weight 56.6 kg [place] Body Weight (kg) 56.81 BMI 20.7 Weight Status Appropriate Subjective/Other Information F/U for TF tolerance and POC. Patient currently tolerating TF at 40 ml/hr. TF order needs to be changed to a higher rate to meet pt. estimated energy and protein needs Burn Absent Trauma Absent Current % PO Negligible Minimum of two criteria Yes Muscle Mass Moderate Depletion (severe) Fluid Accumulation Mild (non-severe) #2 Nutrition Diagnosis Malnutrition Etiology acute illness As Evidenced by Signs and Symptoms moderate muscle mass depletion and fluid accumulation. #1 Nutrition Diagnosis Inadequate oral intake Diagnosis Progress(for reassessment Continues documentation) Is patient on ventilator? No Is Patient Ambulatory and/or Out of Bed No REE-([facility]-confined to bed) 1434.276 Kcal/Kg value to use for calculation 30 Approximate Energy Requirements Using 1698 kcal/Kg Calculation Used for Recommendations [facility] Additional Notes Pro needs: 67-85 (1.2-1.5 g/kg ) Fluid needs 1ml/kcal Nutrition Intervention Nutrition Support: Glucerna 1.2 at 60ml/hr with 100 ml water flush q4h. Kcal 1,728 Protein (gm) 86 Carbohydrates (gm) 165 Fluid (mL) 1,160 Goal #1 TF tolerance Goal #2 TF at goal rate to meet at least 75% energy and pro needs Anticipated Discharge Needs: Unable to determine at this time Follow-Up By: 08/22/20 Additional Comments F/U TF tolerance
[2020-08-19] MEDS: INSULIN LISPRO 100 UNIT/ML SUB-Q SCH ×4 (05:59→17:27)
[2020-08-19] MEDS: LACTULOSE 20 GM/30 ML ORAL LIQD PO SCH ×4 (05:59→17:29)
[2020-08-19] MEDS: INSULIN GLARGINE 100 UNITS/ML SUB-Q SCH (08:40)
[2020-08-19] MEDS: METOPROLOL TARTRATE 50 MG TAB PO SCH ×2 (09:43→21:27)
[2020-08-19] MEDS: LISINOPRIL 5 MG TAB PO SCH (09:43)
[2020-08-19] MEDS: ASPIRIN 81 MG TAB CHEW PO SCH (09:43)
[2020-08-19] MEDS: FUROSEMIDE 40 MG/4 ML INJ IV SCH (09:44)
--- NOTE | 2020-08-19 11:04 | Progress Note ---
Assessment and Plan Assessment and plan: 50-year-old female with known history of hypertension, diabetes mellitus and CHF presenting to the emergency room today complaining of chest pain and shortness of breath. Symptoms onset started sometime this afternoon and seems to be getting worse. Chest pain is nonradiating. Symptoms are better with resting gets worse upon exertion. She denies any cough, no fever or chills, no nausea vomiting, no abdominal pain, no diarrhea. Patient denies any recent travel and no sick contacts. Denies any contact with anyone with COVID-19. Work-up in the emergency room today, chest x-ray shows pleural effusion. Troponin slightly elevated. Patient is being admitted for NSTEMI and CHF. (1) NSTEMI (non-ST elevated myocardial infarction) Current Visit: Yes Status: Acute Plan to address problem: We will trend serial cardiac enzymes. Patient placed on daily aspirin, sublingual nitroglycerin as needed for chest pain. She has been started on heparin drip. Consult placed to cardiology for evaluation. (2) CHF (congestive heart failure) Current Visit: Yes Status: Acute Qualifiers: Heart failure type: unspecified Heart failure chronicity: acute on chronic Qualified Code(s): I50.9 - Heart failure, unspecified Plan to address problem: We will monitor daily weights, inputs and outputs will be closely monitored. Patient will be scheduled for echocardiogram. (3) Diabetes mellitus Current Visit: Yes Status: Acute Plan to address problem: Patient placed on sliding scale insulin. Will monitor Accu-Cheks closely. (4) CVA (5) severe combined metabolic encephalopathy with presumed hypoxic encephalopathy (7) DVT prophylaxis Current Visit: Yes Status: Acute Plan to address problem: Patient currently on anticoagulation. (5) DNR Current Visit: Yes Status: Acute Plan to address problem: Patient is full code. 08/10/2020 -Patient is admitted for the management of non-STEMI and CHF. Patient is on heparin drip, aspirin, IV Lasix. Monitor in and out. Cardiology is following the patient. Diabetes mellitus with hyperglycemia; blood glucose was above 400 and I started the patient on long-acting insulin, Humalog AC and sliding scale insulin, will follow hemoglobin A1c level. -Continue inpatient care 08/11/20 -Patient had echo showed EF of 10 to 15%, with diastolic dysfunction. Patient had echo in 2015 and had EF of 15 to 20%. Patient started on metoprolol, and lisinopril. Blood pressure is well controlled. Continue with IV Lasix. Cardiology is following and will do ischemic work-up on Friday. Patient's hemoglobin A1c is 15.1, has hyperglycemia, and started on Lantus and sliding scale insulin and AC Humalog. Blood pressure this morning was 64 and I discontinued the AC Humalog, monitor blood sugar and adjust insulin as needed. -Disposition continue inpatient care. -I have been notified with nursing staff that Ms Perez has altered mental status, I went and evaluated her and patient was altered. Patient has strong pulse, was on oxygen and saturation was ok. No fever. Blood sugar was checked and was 135 b ut earlier patient had hypoglycemia and was treated with dextrose and insulin discontinued put on D5w. I called code stroke and stat CT, head, CTA head & neck was done and was unrevealing. MRI was done and showed extensive acute infarction. Neurology was consulted and discussed with Dr Flores and she said continue with heparin drip, no other recommendations. she said SAL but patient had LV thrombus on TTE and there is no need to It. patient was evaluated by cardiology Echo showed EF 10-15%, LV thrombus and patient is on heparin drip and other appropriate CHF treatment. Patient was not following with physician and was not taking any medications and her a1c was 15.1. Patient was diagnosed with CHF with EF of 10-15% 4 years ago and didn't have any follow ups and she said sha has no insurance. I called and discussed with her Spouse Priya over the phone. She said patient doesn't want resucitation or intubation. she now DNR/DNI. Priya Riley @[phone]. Prognosis is very poor. 08/12/20 -Extensive acute infarction. Acute on chronic systolic CHF, left ventricular thrombus. Patient is on heparin drip. Cardiology is following. Neurology recommendations noted. Prognosis is poor. Will follow. Patient is DNR/DNI. If no improvement in her mental status I will put OG tube feeding for now. Management plan discussed with our spouse yesterday. 08/13/2020; extensive acute CVA, neurology consult appreciated. Acute on chronic systolic CHF, left ventricular apical thrombus. Continue with heparin drip. Cardiology is following the patient. Patient is DNR/DNI. Patient is on OG tube feeding. Prognosis is poor. Discussed with her spouse Priya Riley @[phone]. elevated liver enzymes; trending up. Ammonia level is going up despite lactulose. 08/14: Patient remains grossly unresponsive. I did discuss with patient's spouse Priya I did update her on all the findings so far which includes the CVA and her unresponsiveness she verbalized understanding. Also discussed advance care planning including consideration for hospice she would like to see her before making the decision 35 minutes spent. Setting communicated also to the director of casework department. I also discussed with the fuller brush worker per their recommendation no further input is beneficial from their standpoint. 08/15: Unfortunately remains unresponsive. spoke to Ms Poewrs, she will like to get information About Hospice and understands that her prognosis is poor. Hospice consult placed. Start Emperic abx. for noted low grade fever 08/16: No new change, still with arrythmia. Hospice ongoing, if approved will discharge today, no on statin due to the Elevated Transaminitis 08/17: Patient continues on tube feeds and heparin drip. Awaiting hospice placement. Will discuss with family about potentially discontinuing all this medication instituting palliative care. Overnight still on the monitor has some arrhythmias which cardiology is managing closely. Very poor prognosis. 08/18: Continue supportive care at this time. No new addition to management plan. 08/19: Continue supportive care, manage electrolytes, awaiting placement, still no response. Poor prognosis History Interval history: Patient seen and examined, remains grossly unresponsive. No other adverse event reported Case management awaiting hospice placement Hospitalist Physical - Physical exam Narrative exam: On intranasal oxygen The patient appeared well nourished and normally developed. Otherwise unresponsive Vital signs as documented. Head exam is unremarkable. No scleral icterus . Neck is with jugular venous distension Lungs are clear to auscultation. Cardiac exam reveals regular rate and Rhythm. Tachycardic Abdominal exam reveals normal bowel sounds, nontender, no organomegaly. Extremities are nonedematous and both femoral and pedal pulses are normal. 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: Altered mental status - Constitutional Vitals: Temp Pulse Resp BP Pulse Ox 98.7 F 82 18 123/77 99 08/19/20 08:18 08/19/20 10:00 08/19/20 08:18 08/19/20 09:43 08/19/20 08:18 General appearance: Present: no acute distress HEART Score - HEART Score EKG: Non-specific Age: 45-65 Risk factors: > 3 risk factors or hx of atherosclerotic disease Troponin: Troponin T 0.056 ng/mL (0.00-0.029) H 08/10/20 07:39 Troponin: > 3x normal limit Results - Labs CBC & Chem 7: 08/18/20 04:50 08/16/20 05:44 Labs: Laboratory Last Values WBC 11.9 K/mm3 (4.5-11.0) H 08/16/20 05:44 RBC 4.56 M/mm3 (3.65-5.03) 08/16/20 05:44 Hgb 10.9 gm/dl (10.1-14.3) 08/18/20 04:50 Hct 35.5 % (30.3-42.9) 08/18/20 04:50 MCV 77 fl (79-97) L 08/16/20 05:44 MCH 24 pg (28-32) L 08/16/20 05:44 MCHC 31 % (30-34) 08/16/20 05:44 RDW 19.3 % (13.2-15.2) H 08/16/20 05:44 Plt Count 224 K/mm3 (140-440) 08/18/20 04:50 Lymph % (Auto) 28.3 % (13.4-35.0) 08/11/20 05:15 [place] % (Auto) 10.8 % (0.0-7.3) H 08/11/20 05:15 Eos % (Auto) 0.4 % (0.0-4.3) 08/11/20 05:15 Baso % (Auto) 1.2 % (0.0-1.8) 08/11/20 05:15 Lymph # (Auto) 2.9 K/mm3 (1.2-5.4) 08/11/20 05:15 [place] # (Auto) 1.1 K/mm3 (0.0-0.8) H 08/11/20 05:15 Eos # (Auto) 0.0 K/mm3 (0.0-0.4) 08/11/20 05:15 Baso # (Auto) 0.1 K/mm3 (0.0-0.1) 08/11/20 05:15 Add Manual Diff Complete 08/14/20 04:42 Total Counted 100 08/14/20 04:42 Seg Neutrophils % Glass Polisher 08/14/20 04:42 Seg Neuts % (Manual) 96.0 % (40.0-70.0) H 08/14/20 04:42 Lymphocytes % (Manual) 1.0 % (13.4-35.0) L 08/14/20 04:42 Monocytes % (Manual) 3.0 % (0.0-7.3) 08/14/20 04:42 Nucleated RBC % Not Reportable 08/14/20 04:42 Seg Neutrophils # 6.0 K/mm3 (1.8-7.7) 08/11/20 05:15 Seg Neutrophils # Man 15.7 K/mm3 (1.8-7.7) H 08/14/20 04:42 Band Neutrophils # 0.0 K/mm3 08/14/20 04:42 Lymphocytes # (Manual) 0.2 K/mm3 (1.2-5.4) L 08/14/20 04:42 Abs React Lymphs (Man) 0.0 K/mm3 08/14/20 04:42 Monocytes # (Manual) 0.5 K/mm3 (0.0-0.8) 08/14/20 04:42 Eosinophils # (Manual) 0.0 K/mm3 (0.0-0.4) 08/14/20 04:42 Basophils # (Manual) 0.0 K/mm3 (0.0-0.1) 08/14/20 04:42 Metamyelocytes # 0.0 K/mm3 08/14/20 04:42 Myelocytes # 0.0 K/mm3 08/14/20 04:42 Promyelocytes # 0.0 K/mm3 08/14/20 04:42 Blast Cells # 0.0 K/mm3 08/14/20 04:42 WBC Morphology Not Reportable 08/14/20 04:42 Hypersegmented Neuts Rare 08/14/20 04:42 Hyposegmented Neuts Not Reportable 08/14/20 04:42 Hypogranular Neuts Not Reportable 08/14/20 04:42 Smudge Cells Not Reportable 08/14/20 04:42 Toxic Granulation Not Reportable 08/14/20 04:42 Toxic Vacuolation Not Reportable 08/14/20 04:42 Dohle Bodies Not Reportable 08/14/20 04:42 Pelger-Huet Anomaly Not Reportable 08/14/20 04:42 Fadumo Rods Not Reportable 08/14/20 04:42 Platelet Estimate Cons 08/14/20 04:42 Clumped Platelets Not Reportable 08/14/20 04:42 Plt Clumps, EDTA Not Reportable 08/14/20 04:42 Large Platelets Not Reportable 08/14/20 04:42 Giant Platelets Not Reportable 08/14/20 04:42 Platelet Satelliting Not Reportable 08/14/20 04:42 Plt Morphology Comment Not Reportable 08/14/20 04:42 RBC Morphology Not Reportable 08/14/20 04:42 Dimorphic RBCs Not Reportable 08/14/20 04:42 Polychromasia Not Reportable 08/14/20 04:42 Hypochromasia 1+ 08/14/20 04:42 Poikilocytosis Not Reportable 08/14/20 04:42 Anisocytosis 1+ 08/14/20 04:42 Microcytosis Not Reportable 08/14/20 04:42 Macrocytosis Not Reportable 08/14/20 04:42 Spherocytes Not Reportable 08/14/20 04:42 Pappenheimer Bodies Not Reportable 08/14/20 04:42 Sickle Cells Not Reportable 08/14/20 04:42 Target Cells Not Reportable 08/14/20 04:42 Tear Drop Cells Not Reportable 08/14/20 04:42 Ovalocytes Not Reportable 08/14/20 04:42 Helmet Cells Not Reportable 08/14/20 04:42 Anne-Dietrich Bodies Not Reportable 08/14/20 04:42 Barlow Rings Not Reportable 08/14/20 04:42 Paxton Cells Not Reportable 08/14/20 04:42 Bite Cells Not Reportable 08/14/20 04:42 Crenated Cell Not Reportable 08/14/20 04:42 Elliptocytes Not Reportable 08/14/20 04:42 Acanthocytes (Spur) Not Reportable 08/14/20 04:42 Rouleaux Not Reportable 08/14/20 04:42 Hemoglobin C Crystals Not Reportable 08/14/20 04:42 Schistocytes Not Reportable 08/14/20 04:42 Malaria parasites Not Reportable 08/14/20 04:42 Mauro Bodies Not Reportable 08/14/20 04:42 Hem Pathologist Commnt No 08/14/20 04:42 PT 17.7 Sec. (12.2-14.9) H 08/14/20 09:02 INR 1.46 (0.87-1.13) H 08/14/20 09:02 APTT 88.7 Sec. (24.2-36.6) H* 08/14/20 09:02 Heparin Anti-Xa Level < 0.10 U.I./ml (0.3-0.7) L 08/19/20 06:56 Sodium 137 mmol/L (137-145) 08/16/20 05:44 Potassium 3.6 mmol/L (3.6-5.0) 08/16/20 05:44 Chloride 100.8 mmol/L (98-107) 08/16/20 05:44 Carbon Dioxide 30 mmol/L (22-30) 08/16/20 05:44 Anion Gap 10 mmol/L 08/16/20 05:44 BUN 36 mg/dL (7-17) H 08/16/20 05:44 Creatinine 0.6 mg/dL (0.6-1.2) 08/16/20 05:44 Estimated GFR > 60 ml/min 08/16/20 05:44 BUN/Creatinine Ratio 60 % 08/16/20 05:44 Glucose 139 mg/dL (65-100) H 08/16/20 05:44 POC Glucose 83 mg/dL (70-105) 08/19/20 00:15 Hemoglobin A1c 15.1 % (4-6) H 08/10/20 11:38 Calcium 7.4 mg/dL (8.4-10.2) L 08/16/20 05:44 Magnesium 1.60 mg/dL (1.7-2.3) L 08/11/20 18:08 Total Bilirubin 1.50 mg/dL (0.1-1.2) H 08/16/20 05:44 Direct Bilirubin 1.5 mg/dL (0-0.2) H 08/14/20 04:42 Indirect Bilirubin 1.0 mg/dL 08/14/20 04:42 AST 267 units/L (5-40) H 08/16/20 05:44 ALT 455 units/L (7-56) H 08/16/20 05:44 Alkaline Phosphatase 535 units/L (35-129) H 08/16/20 05:44 Ammonia 96.0 umol/L (25-60) H 08/14/20 04:42 Troponin T 0.056 ng/mL (0.00-0.029) H 08/10/20 07:39 NT-Pro-B Natriuret Pep 1579 pg/mL (0-450) H 08/09/20 17:28 Total Protein 5.0 g/dL (6.3-8.2) L 08/16/20 05:44 Albumin 2.3 g/dL (3.9-5) L 08/16/20 05:44 Albumin/Globulin Ratio 0.9 % 08/16/20 05:44 Triglycerides 79 mg/dL (2-149) 08/09/20 17:28 Cholesterol 189 mg/dL (50-199) 08/09/20 17:28 LDL Cholesterol Direct 104 mg/dL (50-130) 08/09/20 17:28 HDL Cholesterol 91 mg/dL (40-59) H 08/09/20 17:28 Cholesterol/HDL Ratio 2.07 % 08/09/20 17:28 Lipase 49 units/L (13-60) 08/09/20 17:28 Urine Color Yellow (Yellow) 08/09/20 Unknown Urine Turbidity Clear (Clear) 08/09/20 Unknown Urine pH 6.0 (5.0-7.0) 08/09/20 Unknown Ur Specific [place] 1.040 (1.003-1.030) H 08/09/20 Unknown Urine Protein 100 mg/dl mg/dL (Negative) 08/09/20 Unknown Urine Glucose (UA) >=500 mg/dL (Negative) 08/09/20 Unknown Urine Ketones 20 mg/dL (Negative) 08/09/20 Unknown Urine Blood Neg (Negative) 08/09/20 Unknown Urine Nitrite Neg (Negative) 08/09/20 Unknown Urine Bilirubin Neg (Negative) 08/09/20 Unknown Urine Urobilinogen 2.0 mg/dL (<2.0) 08/09/20 Unknown Ur Leukocyte Esterase Neg (Negative) 08/09/20 Unknown Urine WBC (Auto) 5.0 /HPF (0.0-6.0) 08/09/20 Unknown Urine RBC (Auto) 8.0 /HPF (0.0-6.0) 08/09/20 Unknown U Epithel Cells (Auto) 4.0 /HPF (0-13.0) 08/09/20 Unknown Coronavirus (PCR) Negative (Negative) 08/16/20 10:00 Hepatitis A IgM Ab Non-reactive (NonReactive) 08/12/20 11:56 Hep Bs Antigen Non-reactive (Negative) 08/12/20 11:56 Hep B Core IgM Ab Non-reactive (NonReactive) 08/12/20 11:56 Hepatitis C Antibody Non-reactive (NonReactive) 08/12/20 11:56 Zazueta/IV: Voiding Method External Female Catheter Active Medications - Current Medications Current Medications: Generic Name Dose Route Start Last Admin Trade Name Freq PRN Reason Stop Dose Admin Acetaminophen 650 mg 08/13/20 20:22 08/16/20 23:50 Acetaminophen 325 Mg/10.15 Ml Oral Liqd Unit Dose FEEDTUBE 650 mg Q6H PRN Administration Pain, Mild (1-3) Lipase/Protease/Amylase 1 each 08/12/20 12:36 Lipase 10,500/Protease 25,000/Amylase 43,750 (Units) Dr Ospina FEEDTUBE PRN PRN For Clogged Feeding Tube Aspirin 81 mg 08/11/20 10:00 08/19/20 09:43 Aspirin 81 Mg Tab Chew PO 81 mg QDAY FESTUS Administration Dextrose 0 ml 08/10/20 00:43 08/11/20 19:32 Dextrose 50% In Water (25gm) 50 Ml Syringe IV 50 ml Q30MIN PRN Administration Hypoglycemia Protocol Furosemide 40 mg 08/15/20 10:00 08/19/20 09:44 Furosemide 40 Mg/4 Ml Inj IV 40 mg QDAY FESTUS Administration Heparin Sodium (Porcine) 2,300 unit 08/14/20 08:24 Heparin 10,000 Units/10 Ml Vial 40 unit/kg (2300 unit) IV Q6H PRN Anti-Xa Assay < 0.1 units/ml Heparin Sodium/Sodium Chloride 25,000 unit in 500 mls @ 16 mls/hr 08/14/20 09:00 08/16/20 11:27 Heparin/ 0.45% Nacl-25,000 Unit/500 Ml IV 850 units/hr TITRATE [facility] 17 mls/hr Titration Protocol 800 UNITS/HR Insulin Glargine 20 units 08/14/20 11:00 08/19/20 08:40 Insulin Glargine 100 Units/Ml SUB-Q 20 units QAMDIAB [facility] Administration Insulin Human Lispro 0 unit 08/12/20 00:00 08/19/20 05:59 Insulin Lispro 100 Unit/Ml SUB-Q Not Given Q6HR [facility] Protocol Lactulose 20 gm 08/12/20 18:00 08/19/20 05:59 Lactulose 20 Gm/30 Ml Oral Liqd PO Not Given Q6HR [facility] Lisinopril 5 mg 08/11/20 10:00 08/19/20 09:43 Lisinopril 5 Mg Tab PO 5 mg QDAY [facility] Administration Magnesium Hydroxide 30 ml 08/10/20 00:43 Magnesium Hydroxide (Mom) Oral Liqd Udc PO Q4H PRN Constipation Metoprolol Tartrate 50 mg 08/11/20 22:00 08/19/20 09:43 Metoprolol Tartrate 50 Mg Tab PO 50 mg BID [facility] Administration Nitroglycerin 0.4 mg 08/10/20 00:43 Nitroglycerin 0.4 Mg Tab Subl SL Q5M PRN Chest Pain Ondansetron HCl 4 mg 08/10/20 00:43 08/10/20 23:32 Ondansetron 4 Mg/2 Ml Inj IV 4 mg Q8H PRN Administration Nausea And Vomiting Simple Syrup 15 ml 08/12/20 12:36 Simple Syrup 15 Ml FEEDTUBE PRN PRN Hypoglycemia Simple Syrup 30 ml 08/12/20 12:36 Simple Syrup 15 Ml FEEDTUBE PRN PRN Hypoglycemia Sodium Bicarbonate 325 mg 08/12/20 12:36 Sodium Bicarbonate 325 Mg Tab FEEDTUBE PRN PRN For Clogged Feeding Tube Sodium Chloride 10 ml 08/10/20 10:00 08/19/20 09:44 Sodium Chloride 0.9% 10 Ml Flush Syringe IV 10 ml BID [facility] Administration Sodium Chloride 10 ml 08/10/20 00:43 08/18/20 06:24 Sodium Chloride 0.9% 10 Ml Flush Syringe IV 10 ml PRN PRN Administration LINE FLUSH Nutrition/Malnutrition Assess - Dietary Evaluation Nutrition/Malnutrition Findings: Nutrition Notes Start: 08/10/20 11:18 Freq: Status: Active Protocol: Document 08/18/20 11:12 AL (Rec: 08/18/20 11:29 AL [id number]) Co-Sign 08/18/20 11:12 LP Nutrition Notes Initial or Follow up Reassessment Current Diagnosis Diabetes,Heart Failure Other Pertinent Diagnosis NSTEMI, extensive acute infarction Current Diet Glucerna 1.2 at 40 ml/hr Labs/Tests No new labs Pertinent Medications Humalog Lasix Height 5 ft 5 in Weight 56.6 kg [place] Body Weight (kg) 56.81 BMI 20.7 Weight Status Appropriate Subjective/Other Information F/U for TF tolerance and POC. Patient currently tolerating TF at 40 ml/hr. TF order needs to be changed to a higher rate to meet pt. estimated energy and protein needs Burn Absent Trauma Absent Current % PO Negligible Minimum of two criteria Yes Muscle Mass Moderate Depletion (severe) Fluid Accumulation Mild (non-severe) #2 Nutrition Diagnosis Malnutrition Etiology acute illness As Evidenced by Signs and Symptoms moderate muscle mass depletion and fluid accumulation. #1 Nutrition Diagnosis Inadequate oral intake Diagnosis Progress(for reassessment Continues documentation) Is patient on ventilator? No Is Patient Ambulatory and/or Out of Bed No REE-([facility]-confined to bed) 1434.276 Kcal/Kg value to use for calculation 30 Approximate Energy Requirements Using 1698 kcal/Kg Calculation Used for Recommendations [facility] Additional Notes Pro needs: 67-85 (1.2-1.5 g/kg ) Fluid needs 1ml/kcal Nutrition Intervention Nutrition Support: Glucerna 1.2 at 60ml/hr with 100 ml water flush q4h. Kcal 1,728 Protein (gm) 86 Carbohydrates (gm) 165 Fluid (mL) 1,160 Goal #1 TF tolerance Goal #2 TF at goal rate to meet at least 75% energy and pro needs Anticipated Discharge Needs: Unable to determine at this time Follow-Up By: 08/22/20 Additional Comments F/U TF tolerance
[2020-08-20] MEDS: INSULIN LISPRO 100 UNIT/ML SUB-Q SCH ×5 (00:26→23:24)
[2020-08-20] MEDS: LACTULOSE 20 GM/30 ML ORAL LIQD PO SCH ×5 (00:26→23:24)
[2020-08-20 04:38] LABS: Hemoglobin 10.1 gm/dl (10.1-14.3)
[2020-08-20] MEDS: INSULIN GLARGINE 100 UNITS/ML SUB-Q SCH (08:06)
[2020-08-20] MEDS: ASPIRIN 81 MG TAB CHEW PO SCH (09:01)
[2020-08-20] MEDS: LISINOPRIL 5 MG TAB PO SCH (09:01)
[2020-08-20] MEDS: METOPROLOL TARTRATE 50 MG TAB PO SCH ×2 (09:01→21:24)
[2020-08-20] MEDS: FUROSEMIDE 40 MG/4 ML INJ IV SCH (09:02)
--- NOTE | 2020-08-20 11:24 | Progress Note ---
Assessment and Plan Assessment and plan: 50-year-old female with known history of hypertension, diabetes mellitus and CHF presenting to the emergency room today complaining of chest pain and shortness of breath. Symptoms onset started sometime this afternoon and seems to be getting worse. Chest pain is nonradiating. Symptoms are better with resting gets worse upon exertion. She denies any cough, no fever or chills, no nausea vomiting, no abdominal pain, no diarrhea. Patient denies any recent travel and no sick contacts. Denies any contact with anyone with COVID-19. Work-up in the emergency room today, chest x-ray shows pleural effusion. Troponin slightly elevated. Patient is being admitted for NSTEMI and CHF. (1) NSTEMI (non-ST elevated myocardial infarction) Current Visit: Yes Status: Acute Plan to address problem: We will trend serial cardiac enzymes. Patient placed on daily aspirin, sublingual nitroglycerin as needed for chest pain. She has been started on heparin drip. Consult placed to cardiology for evaluation. (2) CHF (congestive heart failure) Current Visit: Yes Status: Acute Qualifiers: Heart failure type: unspecified Heart failure chronicity: acute on chronic Qualified Code(s): I50.9 - Heart failure, unspecified Plan to address problem: We will monitor daily weights, inputs and outputs will be closely monitored. Patient will be scheduled for echocardiogram. (3) Diabetes mellitus Current Visit: Yes Status: Acute Plan to address problem: Patient placed on sliding scale insulin. Will monitor Accu-Cheks closely. (4) CVA (5) severe combined metabolic encephalopathy with presumed hypoxic encephalopathy (7) DVT prophylaxis Current Visit: Yes Status: Acute Plan to address problem: Patient currently on anticoagulation. (5) DNR Current Visit: Yes Status: Acute Plan to address problem: Patient is full code. 08/10/2020 -Patient is admitted for the management of non-STEMI and CHF. Patient is on heparin drip, aspirin, IV Lasix. Monitor in and out. Cardiology is following the patient. Diabetes mellitus with hyperglycemia; blood glucose was above 400 and I started the patient on long-acting insulin, Humalog AC and sliding scale insulin, will follow hemoglobin A1c level. -Continue inpatient care 08/11/20 -Patient had echo showed EF of 10 to 15%, with diastolic dysfunction. Patient had echo in 2015 and had EF of 15 to 20%. Patient started on metoprolol, and lisinopril. Blood pressure is well controlled. Continue with IV Lasix. Cardiology is following and will do ischemic work-up on Friday. Patient's hemoglobin A1c is 15.1, has hyperglycemia, and started on Lantus and sliding scale insulin and AC Humalog. Blood pressure this morning was 64 and I discontinued the AC Humalog, monitor blood sugar and adjust insulin as needed. -Disposition continue inpatient care. -I have been notified with nursing staff that Ms Perez has altered mental status, I went and evaluated her and patient was altered. Patient has strong pulse, was on oxygen and saturation was ok. No fever. Blood sugar was checked and was 135 b ut earlier patient had hypoglycemia and was treated with dextrose and insulin discontinued put on D5w. I called code stroke and stat CT, head, CTA head & neck was done and was unrevealing. MRI was done and showed extensive acute infarction. Neurology was consulted and discussed with Dr Flores and she said continue with heparin drip, no other recommendations. she said SAL but patient had LV thrombus on TTE and there is no need to It. patient was evaluated by cardiology Echo showed EF 10-15%, LV thrombus and patient is on heparin drip and other appropriate CHF treatment. Patient was not following with physician and was not taking any medications and her a1c was 15.1. Patient was diagnosed with CHF with EF of 10-15% 4 years ago and didn't have any follow ups and she said sha has no insurance. I called and discussed with her Spouse Priya over the phone. She said patient doesn't want resucitation or intubation. she now DNR/DNI. Priya Riley @[phone]. Prognosis is very poor. 08/12/20 -Extensive acute infarction. Acute on chronic systolic CHF, left ventricular thrombus. Patient is on heparin drip. Cardiology is following. Neurology recommendations noted. Prognosis is poor. Will follow. Patient is DNR/DNI. If no improvement in her mental status I will put OG tube feeding for now. Management plan discussed with our spouse yesterday. 08/13/2020; extensive acute CVA, neurology consult appreciated. Acute on chronic systolic CHF, left ventricular apical thrombus. Continue with heparin drip. Cardiology is following the patient. Patient is DNR/DNI. Patient is on OG tube feeding. Prognosis is poor. Discussed with her spouse Priya Riley @[phone]. elevated liver enzymes; trending up. Ammonia level is going up despite lactulose. 08/14: Patient remains grossly unresponsive. I did discuss with patient's spouse Priya I did update her on all the findings so far which includes the CVA and her unresponsiveness she verbalized understanding. Also discussed advance care planning including consideration for hospice she would like to see her before making the decision 35 minutes spent. Setting communicated also to the telephonic case manager. I also discussed with the lifter per their recommendation no further input is beneficial from their standpoint. 08/15: Unfortunately remains unresponsive. spoke to Ms Powers, she will like to get information About Hospice and understands that her prognosis is poor. Hospice consult placed. Start Emperic abx. for noted low grade fever 08/16: No new change, still with arrythmia. Hospice ongoing, if approved will discharge today, no on statin due to the Elevated Transaminitis 08/17: Patient continues on tube feeds and heparin drip. Awaiting hospice placement. Will discuss with family about potentially discontinuing all this medication instituting palliative care. Overnight still on the monitor has some arrhythmias which cardiology is managing closely. Very poor prognosis. 08/18: Continue supportive care at this time. No new addition to management plan. 08/19: Continue supportive care, manage electrolytes, awaiting placement, still no response. Poor prognosis 08/20: Remains unresponsive. Awaiting placement History Interval history: Patient seen and examined, remains grossly unresponsive. No other adverse event reported Case management awaiting hospice placement Hospitalist Physical - Physical exam Narrative exam: On intranasal oxygen The patient appeared well nourished and normally developed. Otherwise unresponsive Vital signs as documented. Head exam is unremarkable. No scleral icterus . Neck is with jugular venous distension Lungs are clear to auscultation. Cardiac exam reveals regular rate and Rhythm. Tachycardic Abdominal exam reveals normal bowel sounds, nontender, no organomegaly. Extremities are nonedematous and both femoral and pedal pulses are normal. 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 - Constitutional Vitals: Temp Pulse Resp BP Pulse Ox 98.2 F 75 18 110/75 99 08/20/20 08:05 08/20/20 09:50 08/20/20 08:05 08/20/20 09:01 08/20/20 08:05 General appearance: Present: no acute distress HEART Score - HEART Score EKG: Non-specific Age: 45-65 Risk factors: > 3 risk factors or hx of atherosclerotic disease Troponin: Troponin T 0.056 ng/mL (0.00-0.029) H 08/10/20 07:39 Troponin: > 3x normal limit Results - Labs CBC & Chem 7: 08/20/20 04:10 08/16/20 05:44 Labs: Laboratory Last Values WBC 11.9 K/mm3 (4.5-11.0) H 08/16/20 05:44 RBC 4.56 M/mm3 (3.65-5.03) 08/16/20 05:44 Hgb 10.1 gm/dl (10.1-14.3) 08/20/20 04:10 Hct 33.0 % (30.3-42.9) 08/20/20 04:10 MCV 77 fl (79-97) L 08/16/20 05:44 MCH 24 pg (28-32) L 08/16/20 05:44 MCHC 31 % (30-34) 08/16/20 05:44 RDW 19.3 % (13.2-15.2) H 08/16/20 05:44 Plt Count 223 K/mm3 (140-440) 08/20/20 04:10 Lymph % (Auto) 28.3 % (13.4-35.0) 08/11/20 05:15 Ogle % (Auto) 10.8 % (0.0-7.3) H 08/11/20 05:15 Eos % (Auto) 0.4 % (0.0-4.3) 08/11/20 05:15 Baso % (Auto) 1.2 % (0.0-1.8) 08/11/20 05:15 Lymph # (Auto) 2.9 K/mm3 (1.2-5.4) 08/11/20 05:15 Ogle # (Auto) 1.1 K/mm3 (0.0-0.8) H 08/11/20 05:15 Eos # (Auto) 0.0 K/mm3 (0.0-0.4) 08/11/20 05:15 Baso # (Auto) 0.1 K/mm3 (0.0-0.1) 08/11/20 05:15 Add Manual Diff Complete 08/14/20 04:42 Total Counted 100 08/14/20 04:42 Seg Neutrophils % Enterprise Systems Manager 08/14/20 04:42 Seg Neuts % (Manual) 96.0 % (40.0-70.0) H 08/14/20 04:42 Lymphocytes % (Manual) 1.0 % (13.4-35.0) L 08/14/20 04:42 Monocytes % (Manual) 3.0 % (0.0-7.3) 08/14/20 04:42 Nucleated RBC % Not Reportable 08/14/20 04:42 Seg Neutrophils # 6.0 K/mm3 (1.8-7.7) 08/11/20 05:15 Seg Neutrophils # Man 15.7 K/mm3 (1.8-7.7) H 08/14/20 04:42 Band Neutrophils # 0.0 K/mm3 08/14/20 04:42 Lymphocytes # (Manual) 0.2 K/mm3 (1.2-5.4) L 08/14/20 04:42 Abs React Lymphs (Man) 0.0 K/mm3 08/14/20 04:42 Monocytes # (Manual) 0.5 K/mm3 (0.0-0.8) 08/14/20 04:42 Eosinophils # (Manual) 0.0 K/mm3 (0.0-0.4) 08/14/20 04:42 Basophils # (Manual) 0.0 K/mm3 (0.0-0.1) 08/14/20 04:42 Metamyelocytes # 0.0 K/mm3 08/14/20 04:42 Myelocytes # 0.0 K/mm3 08/14/20 04:42 Promyelocytes # 0.0 K/mm3 08/14/20 04:42 Blast Cells # 0.0 K/mm3 08/14/20 04:42 WBC Morphology Not Reportable 08/14/20 04:42 Hypersegmented Neuts Rare 08/14/20 04:42 Hyposegmented Neuts Not Reportable 08/14/20 04:42 Hypogranular Neuts Not Reportable 08/14/20 04:42 Smudge Cells Not Reportable 08/14/20 04:42 Toxic Granulation Not Reportable 08/14/20 04:42 Toxic Vacuolation Not Reportable 08/14/20 04:42 Dohle Bodies Not Reportable 08/14/20 04:42 Pelger-Huet Anomaly Not Reportable 08/14/20 04:42 Fadumo Rods Not Reportable 08/14/20 04:42 Platelet Estimate Cons 08/14/20 04:42 Clumped Platelets Not Reportable 08/14/20 04:42 Plt Clumps, EDTA Not Reportable 08/14/20 04:42 Large Platelets Not Reportable 08/14/20 04:42 Giant Platelets Not Reportable 08/14/20 04:42 Platelet Satelliting Not Reportable 08/14/20 04:42 Plt Morphology Comment Not Reportable 08/14/20 04:42 RBC Morphology Not Reportable 08/14/20 04:42 Dimorphic RBCs Not Reportable 08/14/20 04:42 Polychromasia Not Reportable 08/14/20 04:42 Hypochromasia 1+ 08/14/20 04:42 Poikilocytosis Not Reportable 08/14/20 04:42 Anisocytosis 1+ 08/14/20 04:42 Microcytosis Not Reportable 08/14/20 04:42 Macrocytosis Not Reportable 08/14/20 04:42 Spherocytes Not Reportable 08/14/20 04:42 Pappenheimer Bodies Not Reportable 08/14/20 04:42 Sickle Cells Not Reportable 08/14/20 04:42 Target Cells Not Reportable 08/14/20 04:42 Tear Drop Cells Not Reportable 08/14/20 04:42 Ovalocytes Not Reportable 08/14/20 04:42 Helmet Cells Not Reportable 08/14/20 04:42 [place] Bodies Not Reportable 08/14/20 04:42 Rex Rings Not Reportable 08/14/20 04:42 [place]ald Cells Not Reportable 08/14/20 04:42 Bite Cells Not Reportable 08/14/20 04:42 Crenated Cell Not Reportable 08/14/20 04:42 Elliptocytes Not Reportable 08/14/20 04:42 Acanthocytes (Spur) Not Reportable 08/14/20 04:42 Rouleaux Not Reportable 08/14/20 04:42 Hemoglobin C Crystals Not Reportable 08/14/20 04:42 Schistocytes Not Reportable 08/14/20 04:42 Malaria parasites Not Reportable 08/14/20 04:42 Mauro Bodies Not Reportable 08/14/20 04:42 Hem Pathologist Commnt No 08/14/20 04:42 PT 17.7 Sec. (12.2-14.9) H 08/14/20 09:02 INR 1.46 (0.87-1.13) H 08/14/20 09:02 APTT 88.7 Sec. (24.2-36.6) H* 08/14/20 09:02 Heparin Anti-Xa Level < 0.10 U.I./ml (0.3-0.7) L 08/19/20 06:56 Sodium 137 mmol/L (137-145) 08/16/20 05:44 Potassium 3.6 mmol/L (3.6-5.0) 08/16/20 05:44 Chloride 100.8 mmol/L (98-107) 08/16/20 05:44 Carbon Dioxide 30 mmol/L (22-30) 08/16/20 05:44 Anion Gap 10 mmol/L 08/16/20 05:44 BUN 36 mg/dL (7-17) H 08/16/20 05:44 Creatinine 0.6 mg/dL (0.6-1.2) 08/16/20 05:44 Estimated GFR > 60 ml/min 08/16/20 05:44 BUN/Creatinine Ratio 60 % 08/16/20 05:44 Glucose 139 mg/dL (65-100) H 08/16/20 05:44 POC Glucose 113 mg/dL (70-105) H 08/20/20 06:24 Hemoglobin A1c 15.1 % (4-6) H 08/10/20 11:38 Calcium 7.4 mg/dL (8.4-10.2) L 08/16/20 05:44 Magnesium 1.60 mg/dL (1.7-2.3) L 08/11/20 18:08 Total Bilirubin 1.50 mg/dL (0.1-1.2) H 08/16/20 05:44 Direct Bilirubin 1.5 mg/dL (0-0.2) H 08/14/20 04:42 Indirect Bilirubin 1.0 mg/dL 08/14/20 04:42 AST 267 units/L (5-40) H 08/16/20 05:44 ALT 455 units/L (7-56) H 08/16/20 05:44 Alkaline Phosphatase 535 units/L (35-129) H 08/16/20 05:44 Ammonia 96.0 umol/L (25-60) H 08/14/20 04:42 Troponin T 0.056 ng/mL (0.00-0.029) H 08/10/20 07:39 NT-Pro-B Natriuret Pep 1579 pg/mL (0-450) H 08/09/20 17:28 Total Protein 5.0 g/dL (6.3-8.2) L 08/16/20 05:44 Albumin 2.3 g/dL (3.9-5) L 08/16/20 05:44 Albumin/Globulin Ratio 0.9 % 08/16/20 05:44 Triglycerides 79 mg/dL (2-149) 08/09/20 17:28 Cholesterol 189 mg/dL (50-199) 08/09/20 17:28 LDL Cholesterol Direct 104 mg/dL (50-130) 08/09/20 17:28 HDL Cholesterol 91 mg/dL (40-59) H 08/09/20 17:28 Cholesterol/HDL Ratio 2.07 % 08/09/20 17:28 Lipase 49 units/L (13-60) 08/09/20 17:28 Urine Color Yellow (Yellow) 08/09/20 Unknown Urine Turbidity Clear (Clear) 08/09/20 Unknown Urine pH 6.0 (5.0-7.0) 08/09/20 Unknown Ur Specific [place] 1.040 (1.003-1.030) H 08/09/20 Unknown Urine Protein 100 mg/dl mg/dL (Negative) 08/09/20 Unknown Urine Glucose (UA) >=500 mg/dL (Negative) 08/09/20 Unknown Urine Ketones 20 mg/dL (Negative) 08/09/20 Unknown Urine Blood Neg (Negative) 08/09/20 Unknown Urine Nitrite Neg (Negative) 08/09/20 Unknown Urine Bilirubin Neg (Negative) 08/09/20 Unknown Urine Urobilinogen 2.0 mg/dL (<2.0) 08/09/20 Unknown Ur Leukocyte Esterase Neg (Negative) 08/09/20 Unknown Urine WBC (Auto) 5.0 /HPF (0.0-6.0) 08/09/20 Unknown Urine RBC (Auto) 8.0 /HPF (0.0-6.0) 08/09/20 Unknown U Epithel Cells (Auto) 4.0 /HPF (0-13.0) 08/09/20 Unknown Coronavirus (PCR) Negative (Negative) 08/16/20 10:00 Hepatitis A IgM Ab Non-reactive (NonReactive) 08/12/20 11:56 Hep Bs Antigen Non-reactive (Negative) 08/12/20 11:56 Hep B Core IgM Ab Non-reactive (NonReactive) 08/12/20 11:56 Hepatitis C Antibody Non-reactive (NonReactive) 08/12/20 11:56 Zazueta/IV: Voiding Method External Female Catheter Active Medications - Current Medications Current Medications: Generic Name Dose Route Start Last Admin Trade Name Freq PRN Reason Stop Dose Admin Acetaminophen 650 mg 08/13/20 20:22 08/16/20 23:50 Acetaminophen 325 Mg/10.15 Ml Oral Liqd Unit Dose FEEDTUBE 650 mg Q6H PRN Administration Pain, Mild (1-3) Lipase/Protease/Amylase 1 each 08/12/20 12:36 Lipase 10,500/Protease 25,000/Amylase 43,750 (Units) Dr Ospina FEEDTUBE PRN PRN For Clogged Feeding Tube Aspirin 81 mg 08/11/20 10:00 08/20/20 09:01 Aspirin 81 Mg Tab Chew PO 81 mg QDAY FESTUS Administration Dextrose 0 ml 08/10/20 00:43 08/11/20 19:32 Dextrose 50% In Water (25gm) 50 Ml Syringe IV 50 ml Q30MIN PRN Administration Hypoglycemia Protocol Furosemide 40 mg 08/15/20 10:00 08/20/20 09:02 Furosemide 40 Mg/4 Ml Inj IV 40 mg QDAY FESTUS Administration Insulin Glargine 20 units 08/14/20 11:00 08/20/20 08:06 Insulin Glargine 100 Units/Ml SUB-Q 20 units QAMDIAB FESTUS Administration Insulin Human Lispro 0 unit 08/12/20 00:00 08/20/20 05:48 Insulin Lispro 100 Unit/Ml SUB-Q Not Given Q6HR [facility] Protocol Lactulose 20 gm 08/12/20 18:00 08/20/20 05:48 Lactulose 20 Gm/30 Ml Oral Liqd PO Not Given Q6HR FESTUS Lisinopril 5 mg 08/11/20 10:00 08/20/20 09:01 Lisinopril 5 Mg Tab PO 5 mg QDAY FESTUS Administration Magnesium Hydroxide 30 ml 08/10/20 00:43 Magnesium Hydroxide (Mom) Oral Liqd Udc PO Q4H PRN Constipation Metoprolol Tartrate 50 mg 08/11/20 22:00 08/20/20 09:01 Metoprolol Tartrate 50 Mg Tab PO 50 mg BID FESTUS Administration Nitroglycerin 0.4 mg 08/10/20 00:43 Nitroglycerin 0.4 Mg Tab Subl SL Q5M PRN Chest Pain Ondansetron HCl 4 mg 08/10/20 00:43 08/10/20 23:32 Ondansetron 4 Mg/2 Ml Inj IV 4 mg Q8H PRN Administration Nausea And Vomiting Simple Syrup 15 ml 08/12/20 12:36 Simple Syrup 15 Ml FEEDTUBE PRN PRN Hypoglycemia Simple Syrup 30 ml 08/12/20 12:36 Simple Syrup 15 Ml FEEDTUBE PRN PRN Hypoglycemia Sodium Bicarbonate 325 mg 08/12/20 12:36 Sodium Bicarbonate 325 Mg Tab FEEDTUBE PRN PRN For Clogged Feeding Tube Sodium Chloride 10 ml 08/10/20 10:00 08/20/20 09:02 Sodium Chloride 0.9% 10 Ml Flush Syringe IV 10 ml BID FESTUS Administration Sodium Chloride 10 ml 08/10/20 00:43 08/18/20 06:24 Sodium Chloride 0.9% 10 Ml Flush Syringe IV 10 ml PRN PRN Administration LINE FLUSH Nutrition/Malnutrition Assess - Dietary Evaluation Nutrition/Malnutrition Findings: Nutrition Notes Start: 08/10/20 11:18 Freq: Status: Active Protocol: Document 08/18/20 11:12 AL (Rec: 08/18/20 11:29 AL [id number]) Co-Sign 08/18/20 11:12 LP Nutrition Notes Initial or Follow up Reassessment Current Diagnosis Diabetes,Heart Failure Other Pertinent Diagnosis NSTEMI, extensive acute infarction Current Diet Glucerna 1.2 at 40 ml/hr Labs/Tests No new labs Pertinent Medications Humalog Lasix Height 5 ft 5 in Weight 56.6 kg [place] Body Weight (kg) 56.81 BMI 20.7 Weight Status Appropriate Subjective/Other Information F/U for TF tolerance and POC. Patient currently tolerating TF at 40 ml/hr. TF order needs to be changed to a higher rate to meet pt. estimated energy and protein needs Burn Absent Trauma Absent Current % PO Negligible Minimum of two criteria Yes Muscle Mass Moderate Depletion (severe) Fluid Accumulation Mild (non-severe) #2 Nutrition Diagnosis Malnutrition Etiology acute illness As Evidenced by Signs and Symptoms moderate muscle mass depletion and fluid accumulation. #1 Nutrition Diagnosis Inadequate oral intake Diagnosis Progress(for reassessment Continues documentation) Is patient on ventilator? No Is Patient Ambulatory and/or Out of Bed No REE-([facility]-confined to bed) 1434.276 Kcal/Kg value to use for calculation 30 Approximate Energy Requirements Using 1698 kcal/Kg Calculation Used for Recommendations [facility] Additional Notes Pro needs: 67-85 (1.2-1.5 g/kg ) Fluid needs 1ml/kcal Nutrition Intervention Nutrition Support: Glucerna 1.2 at 60ml/hr with 100 ml water flush q4h. Kcal 1,728 Protein (gm) 86 Carbohydrates (gm) 165 Fluid (mL) 1,160 Goal #1 TF tolerance Goal #2 TF at goal rate to meet at least 75% energy and pro needs Anticipated Discharge Needs: Unable to determine at this time Follow-Up By: 08/22/20 Additional Comments F/U TF tolerance
[2020-08-20] MEDS: DEXTROSE 50% IN WATER (25GM) 50 ML SYRINGE IV PRN (23:23)
[2020-08-21] MEDS: LACTULOSE 20 GM/30 ML ORAL LIQD PO SCH ×3 (05:38→17:54)
[2020-08-21] MEDS: INSULIN LISPRO 100 UNIT/ML SUB-Q SCH ×3 (05:39→17:57)
[2020-08-21] MEDS: LISINOPRIL 5 MG TAB PO SCH (09:15)
[2020-08-21] MEDS: METOPROLOL TARTRATE 50 MG TAB PO SCH ×2 (09:15→21:50)
[2020-08-21] MEDS: ASPIRIN 81 MG TAB CHEW PO SCH (09:15)
[2020-08-21] MEDS: FUROSEMIDE 40 MG/4 ML INJ IV SCH (09:15)
--- NOTE | 2020-08-21 11:28 | Progress Note ---
Assessment and Plan Assessment and plan: 50-year-old female with known history of hypertension, diabetes mellitus and CHF presenting to the emergency room today complaining of chest pain and shortness of breath. Symptoms onset started sometime this afternoon and seems to be getting worse. Chest pain is nonradiating. Symptoms are better with resting gets worse upon exertion. She denies any cough, no fever or chills, no nausea vomiting, no abdominal pain, no diarrhea. Patient denies any recent travel and no sick contacts. Denies any contact with anyone with COVID-19. Work-up in the emergency room today, chest x-ray shows pleural effusion. Troponin slightly elevated. Patient is being admitted for NSTEMI and CHF. (1) NSTEMI (non-ST elevated myocardial infarction) Current Visit: Yes Status: Acute Plan to address problem: We will trend serial cardiac enzymes. Patient placed on daily aspirin, sublingual nitroglycerin as needed for chest pain. She has been started on heparin drip. Consult placed to cardiology for evaluation. (2) CHF (congestive heart failure) Current Visit: Yes Status: Acute Qualifiers: Heart failure type: unspecified Heart failure chronicity: acute on chronic Qualified Code(s): I50.9 - Heart failure, unspecified Plan to address problem: We will monitor daily weights, inputs and outputs will be closely monitored. Patient will be scheduled for echocardiogram. (3) Diabetes mellitus Current Visit: Yes Status: Acute Plan to address problem: Patient placed on sliding scale insulin. Will monitor Accu-Cheks closely. (4) CVA (5) severe combined metabolic encephalopathy with presumed hypoxic encephalopathy (7) DVT prophylaxis Current Visit: Yes Status: Acute Plan to address problem: Patient currently on anticoagulation. (5) DNR Current Visit: Yes Status: Acute Plan to address problem: Patient is full code. 08/10/2020 -Patient is admitted for the management of non-STEMI and CHF. Patient is on heparin drip, aspirin, IV Lasix. Monitor in and out. Cardiology is following the patient. Diabetes mellitus with hyperglycemia; blood glucose was above 400 and I started the patient on long-acting insulin, Humalog AC and sliding scale insulin, will follow hemoglobin A1c level. -Continue inpatient care 08/11/20 -Patient had echo showed EF of 10 to 15%, with diastolic dysfunction. Patient had echo in 2015 and had EF of 15 to 20%. Patient started on metoprolol, and lisinopril. Blood pressure is well controlled. Continue with IV Lasix. Cardiology is following and will do ischemic work-up on Friday. Patient's hemoglobin A1c is 15.1, has hyperglycemia, and started on Lantus and sliding scale insulin and AC Humalog. Blood pressure this morning was 64 and I discontinued the AC Humalog, monitor blood sugar and adjust insulin as needed. -Disposition continue inpatient care. -I have been notified with nursing staff that Ms Perez has altered mental status, I went and evaluated her and patient was altered. Patient has strong pulse, was on oxygen and saturation was ok. No fever. Blood sugar was checked and was 135 b ut earlier patient had hypoglycemia and was treated with dextrose and insulin discontinued put on D5w. I called code stroke and stat CT, head, CTA head & neck was done and was unrevealing. MRI was done and showed extensive acute infarction. Neurology was consulted and discussed with Dr Flores and she said continue with heparin drip, no other recommendations. she said SAL but patient had LV thrombus on TTE and there is no need to It. patient was evaluated by cardiology Echo showed EF 10-15%, LV thrombus and patient is on heparin drip and other appropriate CHF treatment. Patient was not following with physician and was not taking any medications and her a1c was 15.1. Patient was diagnosed with CHF with EF of 10-15% 4 years ago and didn't have any follow ups and she said sha has no insurance. I called and discussed with her Spouse Priya over the phone. She said patient doesn't want resucitation or intubation. she now DNR/DNI. Priya Riley @[phone]. Prognosis is very poor. 08/12/20 -Extensive acute infarction. Acute on chronic systolic CHF, left ventricular thrombus. Patient is on heparin drip. Cardiology is following. Neurology recommendations noted. Prognosis is poor. Will follow. Patient is DNR/DNI. If no improvement in her mental status I will put OG tube feeding for now. Management plan discussed with our spouse yesterday. 08/13/2020; extensive acute CVA, neurology consult appreciated. Acute on chronic systolic CHF, left ventricular apical thrombus. Continue with heparin drip. Cardiology is following the patient. Patient is DNR/DNI. Patient is on OG tube feeding. Prognosis is poor. Discussed with her spouse Pirya Riley @[phone]. elevated liver enzymes; trending up. Ammonia level is going up despite lactulose. 08/14: Patient remains grossly unresponsive. I did discuss with patient's spouse Priya I did update her on all the findings so far which includes the CVA and her unresponsiveness she verbalized understanding. Also discussed advance care planning including consideration for hospice she would like to see her before making the decision 35 minutes spent. Setting communicated also to the shoe caser. I also discussed with the hoseman per their recommendation no further input is beneficial from their standpoint. 08/15: Unfortunately remains unresponsive. spoke to Ms Powers, she will like to get information About Hospice and understands that her prognosis is poor. Hospice consult placed. Start Emperic abx. for noted low grade fever 08/16: No new change, still with arrythmia. Hospice ongoing, if approved will discharge today, no on statin due to the Elevated Transaminitis 08/17: Patient continues on tube feeds and heparin drip. Awaiting hospice placement. Will discuss with family about potentially discontinuing all this medication instituting palliative care. Overnight still on the monitor has some arrhythmias which cardiology is managing closely. Very poor prognosis. 08/18: Continue supportive care at this time. No new addition to management plan. 08/19: Continue supportive care, manage electrolytes, awaiting placement, still no response. Poor prognosis 08/20: Remains unresponsive. Awaiting placement 08/21: Patient was hypoglycemic yesterday. Will discontinue Lantus. Awaiting hospice placement. No meaningful recovery so far noted. Remains grossly unresponsive History Interval history: Patient seen and examined, remains grossly unresponsive. Noted hypoglycemic yesterday otherwise no other adverse event reported Case management awaiting hospice placement Hospitalist Physical - Physical exam Narrative exam: On intranasal oxygen The patient appeared well nourished and normally developed. Otherwise unresponsive Vital signs as documented. Head exam is unremarkable. No scleral icterus . Neck is with jugular venous distension Lungs are clear to auscultation. Cardiac exam reveals regular rate and Rhythm. Tachycardic Abdominal exam reveals normal bowel sounds, nontender, no organomegaly. Extremities are nonedematous and both femoral and pedal pulses are normal. VAMP THROATER: Altered mental status - Constitutional Vitals: Temp Pulse Resp BP Pulse Ox 97.7 F 84 16 116/78 100 08/21/20 08:18 08/21/20 09:15 08/21/20 08:18 08/21/20 09:15 08/21/20 08:18 General appearance: Present: no acute distress HEART Score - HEART Score EKG: Non-specific Age: 45-65 Risk factors: > 3 risk factors or hx of atherosclerotic disease Troponin: Troponin T 0.056 ng/mL (0.00-0.029) H 08/10/20 07:39 Troponin: > 3x normal limit Results - Labs CBC & Chem 7: 08/20/20 04:10 08/16/20 05:44 Labs: Laboratory Last Values WBC 11.9 K/mm3 (4.5-11.0) H 08/16/20 05:44 RBC 4.56 M/mm3 (3.65-5.03) 08/16/20 05:44 Hgb 10.1 gm/dl (10.1-14.3) 08/20/20 04:10 Hct 33.0 % (30.3-42.9) 08/20/20 04:10 MCV 77 fl (79-97) L 08/16/20 05:44 MCH 24 pg (28-32) L 08/16/20 05:44 MCHC 31 % (30-34) 08/16/20 05:44 RDW 19.3 % (13.2-15.2) H 08/16/20 05:44 Plt Count 223 K/mm3 (140-440) 08/20/20 04:10 Lymph % (Auto) 28.3 % (13.4-35.0) 08/11/20 05:15 [place] % (Auto) 10.8 % (0.0-7.3) H 08/11/20 05:15 Eos % (Auto) 0.4 % (0.0-4.3) 08/11/20 05:15 Baso % (Auto) 1.2 % (0.0-1.8) 08/11/20 05:15 Lymph # (Auto) 2.9 K/mm3 (1.2-5.4) 08/11/20 05:15 [place] # (Auto) 1.1 K/mm3 (0.0-0.8) H 08/11/20 05:15 Eos # (Auto) 0.0 K/mm3 (0.0-0.4) 08/11/20 05:15 Baso # (Auto) 0.1 K/mm3 (0.0-0.1) 08/11/20 05:15 Add Manual Diff Complete 08/14/20 04:42 Total Counted 100 08/14/20 04:42 Seg Neutrophils % Job Superintendent 08/14/20 04:42 Seg Neuts % (Manual) 96.0 % (40.0-70.0) H 08/14/20 04:42 Lymphocytes % (Manual) 1.0 % (13.4-35.0) L 08/14/20 04:42 Monocytes % (Manual) 3.0 % (0.0-7.3) 08/14/20 04:42 Nucleated RBC % Not Reportable 08/14/20 04:42 Seg Neutrophils # 6.0 K/mm3 (1.8-7.7) 08/11/20 05:15 Seg Neutrophils # Man 15.7 K/mm3 (1.8-7.7) H 08/14/20 04:42 Band Neutrophils # 0.0 K/mm3 08/14/20 04:42 Lymphocytes # (Manual) 0.2 K/mm3 (1.2-5.4) L 08/14/20 04:42 Abs React Lymphs (Man) 0.0 K/mm3 08/14/20 04:42 Monocytes # (Manual) 0.5 K/mm3 (0.0-0.8) 08/14/20 04:42 Eosinophils # (Manual) 0.0 K/mm3 (0.0-0.4) 08/14/20 04:42 Basophils # (Manual) 0.0 K/mm3 (0.0-0.1) 08/14/20 04:42 Metamyelocytes # 0.0 K/mm3 08/14/20 04:42 Myelocytes # 0.0 K/mm3 08/14/20 04:42 Promyelocytes # 0.0 K/mm3 08/14/20 04:42 Blast Cells # 0.0 K/mm3 08/14/20 04:42 WBC Morphology Not Reportable 08/14/20 04:42 Hypersegmented Neuts Rare 08/14/20 04:42 Hyposegmented Neuts Not Reportable 08/14/20 04:42 Hypogranular Neuts Not Reportable 08/14/20 04:42 Smudge Cells Not Reportable 08/14/20 04:42 Toxic Granulation Not Reportable 08/14/20 04:42 Toxic Vacuolation Not Reportable 08/14/20 04:42 Dohle Bodies Not Reportable 08/14/20 04:42 Pelger-Huet Anomaly Not Reportable 08/14/20 04:42 Fadumo Rods Not Reportable 08/14/20 04:42 Platelet Estimate Cons 08/14/20 04:42 Clumped Platelets Not Reportable 08/14/20 04:42 Plt Clumps, EDTA Not Reportable 08/14/20 04:42 Large Platelets Not Reportable 08/14/20 04:42 Giant Platelets Not Reportable 08/14/20 04:42 Platelet Satelliting Not Reportable 08/14/20 04:42 Plt Morphology Comment Not Reportable 08/14/20 04:42 RBC Morphology Not Reportable 08/14/20 04:42 Dimorphic RBCs Not Reportable 08/14/20 04:42 Polychromasia Not Reportable 08/14/20 04:42 Hypochromasia 1+ 08/14/20 04:42 Poikilocytosis Not Reportable 08/14/20 04:42 Anisocytosis 1+ 08/14/20 04:42 Microcytosis Not Reportable 08/14/20 04:42 Macrocytosis Not Reportable 08/14/20 04:42 Spherocytes Not Reportable 08/14/20 04:42 Pappenheimer Bodies Not Reportable 08/14/20 04:42 Sickle Cells Not Reportable 08/14/20 04:42 Target Cells Not Reportable 08/14/20 04:42 Tear Drop Cells Not Reportable 08/14/20 04:42 Ovalocytes Not Reportable 08/14/20 04:42 Helmet Cells Not Reportable 08/14/20 04:42 [place] Bodies Not Reportable 08/14/20 04:42 [place] Rings Not Reportable 08/14/20 04:42 [place] Cells Not Reportable 08/14/20 04:42 Bite Cells Not Reportable 08/14/20 04:42 Crenated Cell Not Reportable 08/14/20 04:42 Elliptocytes Not Reportable 08/14/20 04:42 Acanthocytes (Spur) Not Reportable 08/14/20 04:42 Rouleaux Not Reportable 08/14/20 04:42 Hemoglobin C Crystals Not Reportable 08/14/20 04:42 Schistocytes Not Reportable 08/14/20 04:42 Malaria parasites Not Reportable 08/14/20 04:42 Mauro Bodies Not Reportable 08/14/20 04:42 Hem Pathologist Commnt No 08/14/20 04:42 PT 17.7 Sec. (12.2-14.9) H 08/14/20 09:02 INR 1.46 (0.87-1.13) H 08/14/20 09:02 APTT 88.7 Sec. (24.2-36.6) H* 08/14/20 09:02 Heparin Anti-Xa Level < 0.10 U.I./ml (0.3-0.7) L 08/19/20 06:56 Sodium 137 mmol/L (137-145) 08/16/20 05:44 Potassium 3.6 mmol/L (3.6-5.0) 08/16/20 05:44 Chloride 100.8 mmol/L (98-107) 08/16/20 05:44 Carbon Dioxide 30 mmol/L (22-30) 08/16/20 05:44 Anion Gap 10 mmol/L 08/16/20 05:44 BUN 36 mg/dL (7-17) H 08/16/20 05:44 Creatinine 0.6 mg/dL (0.6-1.2) 08/16/20 05:44 Estimated GFR > 60 ml/min 08/16/20 05:44 BUN/Creatinine Ratio 60 % 08/16/20 05:44 Glucose 139 mg/dL (65-100) H 08/16/20 05:44 POC Glucose 97 mg/dL (70-105) 08/21/20 05:54 Hemoglobin A1c 15.1 % (4-6) H 08/10/20 11:38 Calcium 7.4 mg/dL (8.4-10.2) L 08/16/20 05:44 Magnesium 1.60 mg/dL (1.7-2.3) L 08/11/20 18:08 Total Bilirubin 1.50 mg/dL (0.1-1.2) H 08/16/20 05:44 Direct Bilirubin 1.5 mg/dL (0-0.2) H 08/14/20 04:42 Indirect Bilirubin 1.0 mg/dL 08/14/20 04:42 AST 267 units/L (5-40) H 08/16/20 05:44 ALT 455 units/L (7-56) H 08/16/20 05:44 Alkaline Phosphatase 535 units/L (35-129) H 08/16/20 05:44 Ammonia 48.0 umol/L (25-60) 08/21/20 09:37 Troponin T 0.056 ng/mL (0.00-0.029) H 08/10/20 07:39 NT-Pro-B Natriuret Pep 1579 pg/mL (0-450) H 08/09/20 17:28 Total Protein 5.0 g/dL (6.3-8.2) L 08/16/20 05:44 Albumin 2.3 g/dL (3.9-5) L 08/16/20 05:44 Albumin/Globulin Ratio 0.9 % 08/16/20 05:44 Triglycerides 79 mg/dL (2-149) 08/09/20 17:28 Cholesterol 189 mg/dL (50-199) 08/09/20 17:28 LDL Cholesterol Direct 104 mg/dL (50-130) 08/09/20 17:28 HDL Cholesterol 91 mg/dL (40-59) H 08/09/20 17:28 Cholesterol/HDL Ratio 2.07 % 08/09/20 17:28 Lipase 49 units/L (13-60) 08/09/20 17:28 Urine Color Yellow (Yellow) 08/09/20 Unknown Urine Turbidity Clear (Clear) 08/09/20 Unknown Urine pH 6.0 (5.0-7.0) 08/09/20 Unknown Ur Specific [place] 1.040 (1.003-1.030) H 08/09/20 Unknown Urine Protein 100 mg/dl mg/dL (Negative) 08/09/20 Unknown Urine Glucose (UA) >=500 mg/dL (Negative) 08/09/20 Unknown Urine Ketones 20 mg/dL (Negative) 08/09/20 Unknown Urine Blood Neg (Negative) 08/09/20 Unknown Urine Nitrite Neg (Negative) 08/09/20 Unknown Urine Bilirubin Neg (Negative) 08/09/20 Unknown Urine Urobilinogen 2.0 mg/dL (<2.0) 08/09/20 Unknown Ur Leukocyte Esterase Neg (Negative) 08/09/20 Unknown Urine WBC (Auto) 5.0 /HPF (0.0-6.0) 08/09/20 Unknown Urine RBC (Auto) 8.0 /HPF (0.0-6.0) 08/09/20 Unknown U Epithel Cells (Auto) 4.0 /HPF (0-13.0) 08/09/20 Unknown Coronavirus (PCR) Negative (Negative) 08/16/20 10:00 Hepatitis A IgM Ab Non-reactive (NonReactive) 08/12/20 11:56 Hep Bs Antigen Non-reactive (Negative) 08/12/20 11:56 Hep B Core IgM Ab Non-reactive (NonReactive) 08/12/20 11:56 Hepatitis C Antibody Non-reactive (NonReactive) 08/12/20 11:56 Zazueta/IV: Voiding Method External Female Catheter Active Medications - Current Medications Current Medications: Generic Name Dose Route Start Last Admin Trade Name Freq PRN Reason Stop Dose Admin Acetaminophen 650 mg 08/13/20 20:22 08/16/20 23:50 Acetaminophen 325 Mg/10.15 Ml Oral Liqd Unit Dose FEEDTUBE 650 mg Q6H PRN Administration Pain, Mild (1-3) Lipase/Protease/Amylase 1 each 08/12/20 12:36 Lipase 10,500/Protease 25,000/Amylase 43,750 (Units) Dr Ospina FEEDTUBE PRN PRN For Clogged Feeding Tube Aspirin 81 mg 08/11/20 10:00 08/21/20 09:15 Aspirin 81 Mg Tab Chew PO 81 mg QDAY FESTUS Administration Dextrose 0 ml 08/10/20 00:43 08/20/20 23:23 Dextrose 50% In Water (25gm) 50 Ml Syringe IV 20 ml Q30MIN PRN Administration Hypoglycemia Protocol Furosemide 40 mg 08/15/20 10:00 08/21/20 09:15 Furosemide 40 Mg/4 Ml Inj IV 40 mg QDAY FESTUS Administration Insulin Glargine 20 units 08/14/20 11:00 08/20/20 08:06 Insulin Glargine 100 Units/Ml SUB-Q 20 units QAMDIAB FESTUS Administration Insulin Human Lispro 0 unit 08/12/20 00:00 08/21/20 05:39 Insulin Lispro 100 Unit/Ml SUB-Q Not Given Q6HR [facility] Protocol Lactulose 20 gm 08/12/20 18:00 08/21/20 11:26 Lactulose 20 Gm/30 Ml Oral Liqd PO Not Given Q6HR [facility] Lisinopril 5 mg 08/11/20 10:00 08/21/20 09:15 Lisinopril 5 Mg Tab PO 5 mg QDAY FESTUS Administration Magnesium Hydroxide 30 ml 08/10/20 00:43 Magnesium Hydroxide (Mom) Oral Liqd Udc PO Q4H PRN Constipation Metoprolol Tartrate 50 mg 08/11/20 22:00 08/21/20 09:15 Metoprolol Tartrate 50 Mg Tab PO 50 mg BID FESTUS Administration Nitroglycerin 0.4 mg 08/10/20 00:43 Nitroglycerin 0.4 Mg Tab Subl SL Q5M PRN Chest Pain Ondansetron HCl 4 mg 08/10/20 00:43 08/10/20 23:32 Ondansetron 4 Mg/2 Ml Inj IV 4 mg Q8H PRN Administration Nausea And Vomiting Simple Syrup 15 ml 08/12/20 12:36 Simple Syrup 15 Ml FEEDTUBE PRN PRN Hypoglycemia Simple Syrup 30 ml 08/12/20 12:36 Simple Syrup 15 Ml FEEDTUBE PRN PRN Hypoglycemia Sodium Bicarbonate 325 mg 08/12/20 12:36 Sodium Bicarbonate 325 Mg Tab FEEDTUBE PRN PRN For Clogged Feeding Tube Sodium Chloride 10 ml 08/10/20 10:00 08/21/20 09:15 Sodium Chloride 0.9% 10 Ml Flush Syringe IV 10 ml BID FESTUS Administration Sodium Chloride 10 ml 08/10/20 00:43 08/18/20 06:24 Sodium Chloride 0.9% 10 Ml Flush Syringe IV 10 ml PRN PRN Administration LINE FLUSH Nutrition/Malnutrition Assess - Dietary Evaluation Nutrition/Malnutrition Findings: Nutrition Notes Start: 08/10/20 11:18 Freq: Status: Active Protocol: Document 08/18/20 11:12 AL (Rec: 08/18/20 11:29 AL [id number]) Co-Sign 08/18/20 11:12 LP Nutrition Notes Initial or Follow up Reassessment Current Diagnosis Diabetes,Heart Failure Other Pertinent Diagnosis NSTEMI, extensive acute infarction Current Diet Glucerna 1.2 at 40 ml/hr Labs/Tests No new labs Pertinent Medications Humalog Lasix Height 5 ft 5 in Weight 56.6 kg [place] Body Weight (kg) 56.81 BMI 20.7 Weight Status Appropriate Subjective/Other Information F/U for TF tolerance and POC. Patient currently tolerating TF at 40 ml/hr. TF order needs to be changed to a higher rate to meet pt. estimated energy and protein needs Burn Absent Trauma Absent Current % PO Negligible Minimum of two criteria Yes Muscle Mass Moderate Depletion (severe) Fluid Accumulation Mild (non-severe) #2 Nutrition Diagnosis Malnutrition Etiology acute illness As Evidenced by Signs and Symptoms moderate muscle mass depletion and fluid accumulation. #1 Nutrition Diagnosis Inadequate oral intake Diagnosis Progress(for reassessment Continues documentation) Is patient on ventilator? No Is Patient Ambulatory and/or Out of Bed No REE-([facility]-confined to bed) 1434.276 Kcal/Kg value to use for calculation 30 Approximate Energy Requirements Using 1698 kcal/Kg Calculation Used for Recommendations [facility] Additional Notes Pro needs: 67-85 (1.2-1.5 g/kg ) Fluid needs 1ml/kcal Nutrition Intervention Nutrition Support: Glucerna 1.2 at 60ml/hr with 100 ml water flush q4h. Kcal 1,728 Protein (gm) 86 Carbohydrates (gm) 165 Fluid (mL) 1,160 Goal #1 TF tolerance Goal #2 TF at goal rate to meet at least 75% energy and pro needs Anticipated Discharge Needs: Unable to determine at this time Follow-Up By: 08/22/20 Additional Comments F/U TF tolerance
[2020-08-22] MEDS: INSULIN LISPRO 100 UNIT/ML SUB-Q SCH ×4 (00:30→17:18)
[2020-08-22 08:48] LABS: Hematocrit 39.2 % (30.3-42.9)
[2020-08-22] MEDS: INSULIN GLARGINE 100 UNITS/ML SUB-Q SCH (09:05)
[2020-08-22] MEDS: ASPIRIN 81 MG TAB CHEW PO SCH (09:54)
[2020-08-22] MEDS: FUROSEMIDE 40 MG/4 ML INJ IV SCH (09:54)
[2020-08-22] MEDS: METOPROLOL TARTRATE 50 MG TAB PO SCH ×2 (09:54→21:49)
[2020-08-22] MEDS: LISINOPRIL 5 MG TAB PO SCH (09:54)
--- NOTE | 2020-08-22 12:37 | Progress Note ---
Assessment and Plan Assessment and plan: 50-year-old female with known history of hypertension, diabetes mellitus and CHF presenting to the emergency room today complaining of chest pain and shortness of breath. Symptoms onset started sometime this afternoon and seems to be getting worse. Chest pain is nonradiating. Symptoms are better with resting gets worse upon exertion. She denies any cough, no fever or chills, no nausea vomiting, no abdominal pain, no diarrhea. Patient denies any recent travel and no sick contacts. Denies any contact with anyone with COVID-19. Work-up in the emergency room today, chest x-ray shows pleural effusion. Troponin slightly elevated. Patient is being admitted for NSTEMI and CHF. (1) NSTEMI (non-ST elevated myocardial infarction) Current Visit: Yes Status: Acute Plan to address problem: We will trend serial cardiac enzymes. Patient placed on daily aspirin, sublingual nitroglycerin as needed for chest pain. She has been started on heparin drip. Consult placed to cardiology for evaluation. (2) CHF (congestive heart failure) Current Visit: Yes Status: Acute Qualifiers: Heart failure type: unspecified Heart failure chronicity: acute on chronic Qualified Code(s): I50.9 - Heart failure, unspecified Plan to address problem: We will monitor daily weights, inputs and outputs will be closely monitored. Patient will be scheduled for echocardiogram. (3) Diabetes mellitus Current Visit: Yes Status: Acute Plan to address problem: Patient placed on sliding scale insulin. Will monitor Accu-Cheks closely. (4) CVA (5) severe combined metabolic encephalopathy with presumed hypoxic encephalopathy (7) DVT prophylaxis Current Visit: Yes Status: Acute Plan to address problem: Patient currently on anticoagulation. (5) DNR Current Visit: Yes Status: Acute Plan to address problem: Patient is full code. 08/10/2020 -Patient is admitted for the management of non-STEMI and CHF. Patient is on heparin drip, aspirin, IV Lasix. Monitor in and out. Cardiology is following the patient. Diabetes mellitus with hyperglycemia; blood glucose was above 400 and I started the patient on long-acting insulin, Humalog AC and sliding scale insulin, will follow hemoglobin A1c level. -Continue inpatient care 08/11/20 -Patient had echo showed EF of 10 to 15%, with diastolic dysfunction. Patient had echo in 2015 and had EF of 15 to 20%. Patient started on metoprolol, and lisinopril. Blood pressure is well controlled. Continue with IV Lasix. Cardiology is following and will do ischemic work-up on Friday. Patient's hemoglobin A1c is 15.1, has hyperglycemia, and started on Lantus and sliding scale insulin and AC Humalog. Blood pressure this morning was 64 and I discontinued the AC Humalog, monitor blood sugar and adjust insulin as needed. -Disposition continue inpatient care. -I have been notified with nursing staff that Ms Perez has altered mental status, I went and evaluated her and patient was altered. Patient has strong pulse, was on oxygen and saturation was ok. No fever. Blood sugar was checked and was 135 but earlier patient had hypoglycemia and was treated with dextrose and insulin discontinued put on D5w. I called code stroke and stat CT, head, CTA head & neck was done and was unrevealing. MRI was done and showed extensive acute infarction. Neurology was consulted and discussed with Dr Flores and she said continue with heparin drip, no other recommendations. she said SAL but patient had LV thrombus on TTE and there is no need to It. patient was evaluated by cardiology Echo showed EF 10-15%, LV thrombus and patient is on heparin drip and other appropriate CHF treatment. Patient was not following with physician and was not taking any medications and her a1c was 15.1. Patient was diagnosed with CHF with EF of 10-15% 4 years ago and didn't have any follow ups and she said sha has no insurance. I called and discussed with her Spouse Priya over the phone. She said patient doesn't want resucitation or intubation. she now DNR/DNI. Priya Riley @[phone]. Prognosis is very poor. 08/12/20 -Extensive acute infarction. Acute on chronic systolic CHF, left ventricular thrombus. Patient is on heparin drip. Cardiology is following. Neurology recommendations noted. Prognosis is poor. Will follow. Patient is DNR/DNI. If no improvement in her mental status I will put OG tube feeding for now. Management plan discussed with our spouse yesterday. 08/13/2020; extensive acute CVA, neurology consult appreciated. Acute on chronic systolic CHF, left ventricular apical thrombus. Continue with heparin drip. Cardiology is following the patient. Patient is DNR/DNI. Patient is on OG tube feeding. Prognosis is poor. Discussed with her spouse Priya Riley @[phone]. elevated liver enzymes; trending up. Ammonia level is going up despite lactulose. 08/14: Patient remains grossly unresponsive. I did discuss with patient's spouse Priya I did update her on all the findings so far which includes the CVA and her unresponsiveness she verbalized understanding. Also discussed advance care planning including consideration for hospice she would like to see her before making the decision 35 minutes spent. Setting communicated also to the case manager specialist. I also discussed with the japanese interpreter per their recommendation no further input is beneficial from their standpoint. 08/15: Unfortunately remains unresponsive. spoke to Ms Priya, she will like to get information About Hospice and understands that her prognosis is poor. Hospice consult placed. Start Emperic abx. for noted low grade fever 08/16: No new change, still with arrythmia. Hospice ongoing, if approved will discharge today, no on statin due to the Elevated Transaminitis 08/17: Patient continues on tube feeds and heparin drip. Awaiting hospice placement. Will discuss with family about potentially discontinuing all this medication instituting palliative care. Overnight still on the monitor has some arrhythmias which cardiology is managing closely. Very poor prognosis. 08/18: Continue supportive care at this time. No new addition to management plan. 08/19: Continue supportive care, manage electrolytes, awaiting placement, still no response. Poor prognosis 08/20: Remains unresponsive. Awaiting placement 08/21: Patient was hypoglycemic yesterday. Will discontinue Lantus. Awaiting hospice placement. No meaningful recovery so far noted. Remains grossly unresp onsive 08/22. Labs reviewed. Hypoglycemia resolved. Awaiting hospice placement. Remains grossly nonresponsive History Interval history: Patient seen and examined, remains grossly unresponsive. Hospice placement as per case assembler Hospitalist Physical - Physical exam Narrative exam: VITAL SIGNS: Reviewed. GENERAL: Awake HEAD: No signs of head trauma. EYES: Pupils are equal. Extraocular motions intact. MOUTH: Oropharynx is normal. NECK: No adenopathy, no JVD. CHEST: Chest with diminished breath sounds bilaterally. No wheezes, rales, or rhonchi. CARDIAC: normal S1 and S2, without murmurs, gallops, or rubs. ABDOMEN: Soft, non tender and non distended. No rebound or guarding, and no masses palpated. Bowel Sounds normal. MUSCULOSKELETAL: No edema NEUROLOGIC EXAM: Alert and oriented x3. No focal neurologic deficits SKIN: No obvious lesions - Constitutional Vitals: Temp Pulse Resp BP Pulse Ox 98.6 F 87 15 114/83 100 08/22/20 08:07 08/22/20 09:43 08/22/20 08:07 08/22/20 08:07 08/22/20 08:13 HEART Score - HEART Score EKG: Non-specific Age: 45-65 Risk factors: > 3 risk factors or hx of atherosclerotic disease Troponin: Troponin T 0.056 ng/mL (0.00-0.029) H 08/10/20 07:39 Troponin: > 3x normal limit Results - Labs CBC & Chem 7: 08/22/20 08:21 08/16/20 05:44 Labs: Laboratory Last Values WBC 11.9 K/mm3 (4.5-11.0) H 08/16/20 05:44 RBC 4.56 M/mm3 (3.65-5.03) 08/16/20 05:44 Hgb 12.0 gm/dl (10.1-14.3) 08/22/20 08:21 Hct 39.2 % (30.3-42.9) D 08/22/20 08:21 MCV 77 fl (79-97) L 08/16/20 05:44 MCH 24 pg (28-32) L 08/16/20 05:44 MCHC 31 % (30-34) 08/16/20 05:44 RDW 19.3 % (13.2-15.2) H 08/16/20 05:44 Plt Count 262 K/mm3 (140-440) 08/22/20 08:21 Lymph % (Auto) 28.3 % (13.4-35.0) 08/11/20 05:15 Wheeler % (Auto) 10.8 % (0.0-7.3) H 08/11/20 05:15 Eos % (Auto) 0.4 % (0.0-4.3) 08/11/20 05:15 Baso % (Auto) 1.2 % (0.0-1.8) 08/11/20 05:15 Lymph # (Auto) 2.9 K/mm3 (1.2-5.4) 08/11/20 05:15 Wheeler # (Auto) 1.1 K/mm3 (0.0-0.8) H 08/11/20 05:15 Eos # (Auto) 0.0 K/mm3 (0.0-0.4) 08/11/20 05:15 Baso # (Auto) 0.1 K/mm3 (0.0-0.1) 08/11/20 05:15 Add Manual Diff Complete 08/14/20 04:42 Total Counted 100 08/14/20 04:42 Seg Neutrophils % Service Parts Coordinator 08/14/20 04:42 Seg Neuts % (Manual) 96.0 % (40.0-70.0) H 08/14/20 04:42 Lymphocytes % (Manual) 1.0 % (13.4-35.0) L 08/14/20 04:42 Monocytes % (Manual) 3.0 % (0.0-7.3) 08/14/20 04:42 Nucleated RBC % Not Reportable 08/14/20 04:42 Seg Neutrophils # 6.0 K/mm3 (1.8-7.7) 08/11/20 05:15 Seg Neutrophils # Man 15.7 K/mm3 (1.8-7.7) H 08/14/20 04:42 Band Neutrophils # 0.0 K/mm3 08/14/20 04:42 Lymphocytes # (Manual) 0.2 K/mm3 (1.2-5.4) L 08/14/20 04:42 Abs React Lymphs (Man) 0.0 K/mm3 08/14/20 04:42 Monocytes # (Manual) 0.5 K/mm3 (0.0-0.8) 08/14/20 04:42 Eosinophils # (Manual) 0.0 K/mm3 (0.0-0.4) 08/14/20 04:42 Basophils # (Manual) 0.0 K/mm3 (0.0-0.1) 08/14/20 04:42 Metamyelocytes # 0.0 K/mm3 08/14/20 04:42 Myelocytes # 0.0 K/mm3 08/14/20 04:42 Promyelocytes # 0.0 K/mm3 08/14/20 04:42 Blast Cells # 0.0 K/mm3 08/14/20 04:42 WBC Morphology Not Reportable 08/14/20 04:42 Hypersegmented Neuts Rare 08/14/20 04:42 Hyposegmented Neuts Not Reportable 08/14/20 04:42 Hypogranular Neuts Not Reportable 08/14/20 04:42 Smudge Cells Not Reportable 08/14/20 04:42 Toxic Granulation Not Reportable 08/14/20 04:42 Toxic Vacuolation Not Reportable 08/14/20 04:42 Dohle Bodies Not Reportable 08/14/20 04:42 Pelger-Huet Anomaly Not Reportable 08/14/20 04:42 Fadumo Rods Not Reportable 08/14/20 04:42 Platelet Estimate Cons 08/14/20 04:42 Clumped Platelets Not Reportable 08/14/20 04:42 Plt Clumps, EDTA Not Reportable 08/14/20 04:42 Large Platelets Not Reportable 08/14/20 04:42 Giant Platelets Not Reportable 08/14/20 04:42 Platelet Satelliting Not Reportable 08/14/20 04:42 Plt Morphology Comment Not Reportable 08/14/20 04:42 RBC Morphology Not Reportable 08/14/20 04:42 Dimorphic RBCs Not Reportable 08/14/20 04:42 Polychromasia Not Reportable 08/14/20 04:42 Hypochromasia 1+ 08/14/20 04:42 Poikilocytosis Not Reportable 08/14/20 04:42 Anisocytosis 1+ 08/14/20 04:42 Microcytosis Not Reportable 08/14/20 04:42 Macrocytosis Not Reportable 08/14/20 04:42 Spherocytes Not Reportable 08/14/20 04:42 Pappenheimer Bodies Not Reportable 08/14/20 04:42 Sickle Cells Not Reportable 08/14/20 04:42 Target Cells Not Reportable 08/14/20 04:42 Tear Drop Cells Not Reportable 08/14/20 04:42 Ovalocytes Not Reportable 08/14/20 04:42 Helmet Cells Not Reportable 08/14/20 04:42 Anne-Thendara Bodies Not Reportable 08/14/20 04:42 Ellamore Rings Not Reportable 08/14/20 04:42 Emerald Cells Not Reportable 08/14/20 04:42 Bite Cells Not Reportable 08/14/20 04:42 Crenated Cell Not Reportable 08/14/20 04:42 Elliptocytes Not Reportable 08/14/20 04:42 Acanthocytes (Spur) Not Reportable 08/14/20 04:42 Rouleaux Not Reportable 08/14/20 04:42 Hemoglobin C Crystals Not Reportable 08/14/20 04:42 Schistocytes Not Reportable 08/14/20 04:42 Malaria parasites Not Reportable 08/14/20 04:42 Mauro Bodies Not Reportable 08/14/20 04:42 Hem Pathologist Commnt No 08/14/20 04:42 PT 17.7 Sec. (12.2-14.9) H 08/14/20 09:02 INR 1.46 (0.87-1.13) H 08/14/20 09:02 APTT 88.7 Sec. (24.2-36.6) H* 08/14/20 09:02 Heparin Anti-Xa Level < 0.10 U.I./ml (0.3-0.7) L 08/19/20 06:56 Sodium 137 mmol/L (137-145) 08/16/20 05:44 Potassium 3.6 mmol/L (3.6-5.0) 08/16/20 05:44 Chloride 100.8 mmol/L (98-107) 08/16/20 05:44 Carbon Dioxide 30 mmol/L (22-30) 08/16/20 05:44 Anion Gap 10 mmol/L 08/16/20 05:44 BUN 36 mg/dL (7-17) H 08/16/20 05:44 Creatinine 0.6 mg/dL (0.6-1.2) 08/16/20 05:44 Estimated GFR > 60 ml/min 08/16/20 05:44 BUN/Creatinine Ratio 60 % 08/16/20 05:44 Glucose 139 mg/dL (65-100) H 08/16/20 05:44 POC Glucose 240 mg/dL (70-105) H 08/22/20 05:48 Hemoglobin A1c 15.1 % (4-6) H 08/10/20 11:38 Calcium 7.4 mg/dL (8.4-10.2) L 08/16/20 05:44 Magnesium 1.60 mg/dL (1.7-2.3) L 08/11/20 18:08 Total Bilirubin 1.50 mg/dL (0.1-1.2) H 08/16/20 05:44 Direct Bilirubin 1.5 mg/dL (0-0.2) H 08/14/20 04:42 Indirect Bilirubin 1.0 mg/dL 08/14/20 04:42 AST 267 units/L (5-40) H 08/16/20 05:44 ALT 455 units/L (7-56) H 08/16/20 05:44 Alkaline Phosphatase 535 units/L (35-129) H 08/16/20 05:44 Ammonia 48.0 umol/L (25-60) 08/21/20 09:37 Troponin T 0.056 ng/mL (0.00-0.029) H 08/10/20 07:39 NT-Pro-B Natriuret Pep 1579 pg/mL (0-450) H 08/09/20 17:28 Total Protein 5.0 g/dL (6.3-8.2) L 08/16/20 05:44 Albumin 2.3 g/dL (3.9-5) L 08/16/20 05:44 Albumin/Globulin Ratio 0.9 % 08/16/20 05:44 Triglycerides 79 mg/dL (2-149) 08/09/20 17:28 Cholesterol 189 mg/dL (50-199) 08/09/20 17:28 LDL Cholesterol Direct 104 mg/dL (50-130) 08/09/20 17:28 HDL Cholesterol 91 mg/dL (40-59) H 08/09/20 17:28 Cholesterol/HDL Ratio 2.07 % 08/09/20 17:28 Lipase 49 units/L (13-60) 08/09/20 17:28 Urine Color Yellow (Yellow) 08/09/20 Unknown Urine Turbidity Clear (Clear) 08/09/20 Unknown Urine pH 6.0 (5.0-7.0) 08/09/20 Unknown Ur Specific [place] 1.040 (1.003-1.030) H 08/09/20 Unknown Urine Protein 100 mg/dl mg/dL (Negative) 08/09/20 Unknown Urine Glucose (UA) >=500 mg/dL (Negative) 08/09/20 Unknown Urine Ketones 20 mg/dL (Negative) 08/09/20 Unknown Urine Blood Neg (Negative) 08/09/20 Unknown Urine Nitrite Neg (Negative) 08/09/20 Unknown Urine Bilirubin Neg (Negative) 08/09/20 Unknown Urine Urobilinogen 2.0 mg/dL (<2.0) 08/09/20 Unknown Ur Leukocyte Esterase Neg (Negative) 08/09/20 Unknown Urine WBC (Auto) 5.0 /HPF (0.0-6.0) 08/09/20 Unknown Urine RBC (Auto) 8.0 /HPF (0.0-6.0) 08/09/20 Unknown U Epithel Cells (Auto) 4.0 /HPF (0-13.0) 08/09/20 Unknown Coronavirus (PCR) Negative (Negative) 08/16/20 10:00 Hepatitis A IgM Ab Non-reactive (NonReactive) 08/12/20 11:56 Hep Bs Antigen Non-reactive (Negative) 08/12/20 11:56 Hep B Core IgM Ab Non-reactive (NonReactive) 08/12/20 11:56 Hepatitis C Antibody Non-reactive (NonReactive) 08/12/20 11:56 Zazueta/IV: Voiding Method External Female Catheter Active Medications - Current Medications Current Medications: Generic Name Dose Route Start Last Admin Trade Name Freq PRN Reason Stop Dose Admin Acetaminophen 650 mg 08/13/20 20:22 08/16/20 23:50 Acetaminophen 325 Mg/10.15 Ml Oral Liqd Unit Dose FEEDTUBE 650 mg Q6H PRN Administration Pain, Mild (1-3) Lipase/Protease/Amylase 1 each 08/12/20 12:36 Lipase 10,500/Protease 25,000/Amylase 43,750 (Units) Dr Ospina FEEDTUBE PRN PRN For Clogged Feeding Tube Aspirin 81 mg 08/11/20 10:00 08/22/20 09:54 Aspirin 81 Mg Tab Chew PO 81 mg QDAY FESTUS Administration Dextrose 0 ml 08/10/20 00:43 08/20/20 23:23 Dextrose 50% In Water (25gm) 50 Ml Syringe IV 20 ml Q30MIN PRN Administration Hypoglycemia Protocol Furosemide 40 mg 08/15/20 10:00 08/22/20 09:54 Furosemide 40 Mg/4 Ml Inj IV 40 mg QDAY FESTUS Administration Insulin Human Lispro 0 unit 08/12/20 00:00 08/22/20 06:28 Insulin Lispro 100 Unit/Ml SUB-Q 4 unit Q6HR FESTUS Administration Protocol Lisinopril 5 mg 08/11/20 10:00 08/22/20 09:54 Lisinopril 5 Mg Tab PO 5 mg QDAY FESTUS Administration Magnesium Hydroxide 30 ml 08/10/20 00:43 Magnesium Hydroxide (Mom) Oral Liqd Udc PO Q4H PRN Constipation Metoprolol Tartrate 50 mg 08/11/20 22:00 08/22/20 09:54 Metoprolol Tartrate 50 Mg Tab PO 50 mg BID FESTUS Administration Nitroglycerin 0.4 mg 08/10/20 00:43 Nitroglycerin 0.4 Mg Tab Subl SL Q5M PRN Chest Pain Ondansetron HCl 4 mg 08/10/20 00:43 08/10/20 23:32 Ondansetron 4 Mg/2 Ml Inj IV 4 mg Q8H PRN Administration Nausea And Vomiting Simple Syrup 15 ml 08/12/20 12:36 Simple Syrup 15 Ml FEEDTUBE PRN PRN Hypoglycemia Simple Syrup 30 ml 08/12/20 12:36 Simple Syrup 15 Ml FEEDTUBE PRN PRN Hypoglycemia Sodium Bicarbonate 325 mg 08/12/20 12:36 Sodium Bicarbonate 325 Mg Tab FEEDTUBE PRN PRN For Clogged Feeding Tube Sodium Chloride 10 ml 08/10/20 10:00 08/22/20 09:56 Sodium Chloride 0.9% 10 Ml Flush Syringe IV 10 ml BID FESTUS Administration Sodium Chloride 10 ml 08/10/20 00:43 08/18/20 06:24 Sodium Chloride 0.9% 10 Ml Flush Syringe IV 10 ml PRN PRN Administration LINE FLUSH Nutrition/Malnutrition Assess - Dietary Evaluation Nutrition/Malnutrition Findings: Nutrition Notes Start: 08/10/20 11:18 Freq: Status: Active Protocol: Document 08/22/20 12:04 CHARLES (Rec: 08/22/20 12:07 CHARLES [email or web address]) Nutrition Notes Initial or Follow up Reassessment Current Diagnosis Diabetes,Heart Failure Other Pertinent Diagnosis NSTEMI, extensive acute infarction Current Diet Glucerna 1.2 at 40 ml/hr Labs/Tests POC BG 240 Pertinent Medications Reviewed Height 5 ft 5 in Weight 50.7 kg [place] Body Weight (kg) 56.81 BMI 18.6 Weight Status Appropriate Subjective/Other Information FU for TF tolerance. Per RN, pt tolerating TF well. TF was not increased. RN increased to 50 ml/hr at time of visit. Percent of energy/protein needs met: 69%/87% Burn Absent Trauma Absent GI Symptoms None Current % PO Negligible Minimum of two criteria Yes Muscle Mass Moderate Depletion (severe) Fluid Accumulation Mild (non-severe) #2 Nutrition Diagnosis Malnutrition Diagnosis Progress(for reassessment Continues documentation) #1 Nutrition Diagnosis Inadequate oral intake Diagnosis Progress(for reassessment Continues documentation) Is patient on ventilator? No Is Patient Ambulatory and/or Out of Bed No REE-([facility]-confined to bed) 1363.548 Kcal/Kg value to use for calculation 33 Approximate Energy Requirements Using 1673 kcal/Kg Calculation Used for Recommendations [facility] Additional Notes Pro needs: 67-85 (1.2-1.5 g/kg ) Fluid needs 1ml/kcal Nutrition Intervention Change Diet Order: Continue Nutrition Support: Glucerna 1.2 at 60 ml/hr with 100 ml water flush q4h. Kcal 1,728 Protein (gm) 86 Carbohydrates (gm) 165 Fluid (mL) 1,160 Goal #1 TF tolerance Goal #2 TF at goal rate to meet at least 75% energy and pro needs Anticipated Discharge Needs: Unable to determine at this time Follow-Up By: 08/24/20 Additional Comments FU for TF tolerance
[2020-08-23] MEDS: INSULIN LISPRO 100 UNIT/ML SUB-Q SCH ×4 (00:13→17:27)
[2020-08-23] MEDS: FUROSEMIDE 40 MG/4 ML INJ IV SCH (10:38)
[2020-08-23] MEDS: ASPIRIN 81 MG TAB CHEW PO SCH (10:38)
[2020-08-23] MEDS: LISINOPRIL 5 MG TAB PO SCH (10:38)
[2020-08-23] MEDS: METOPROLOL TARTRATE 50 MG TAB PO SCH (10:38)
--- NOTE | 2020-08-23 13:15 | Progress Note ---
Assessment and Plan Assessment and plan: 50-year-old female with known history of hypertension, diabetes mellitus and CHF presenting to the emergency room today complaining of chest pain and shortness of breath. Symptoms onset started sometime this afternoon and seems to be getting worse. Chest pain is nonradiating. Symptoms are better with resting gets worse upon exertion. She denies any cough, no fever or chills, no nausea vomiting, no abdominal pain, no diarrhea. Patient denies any recent travel and no sick contacts. Denies any contact with anyone with COVID-19. Work-up in the emergency room today, chest x-ray shows pleural effusion. Troponin slightly elevated. Patient is being admitted for NSTEMI and CHF. (1) NSTEMI (non-ST elevated myocardial infarction) Current Visit: Yes Status: Acute Plan to address problem: We will trend serial cardiac enzymes. Patient placed on daily aspirin, sublingual nitroglycerin as needed for chest pain. She has been started on heparin drip. Consult placed to cardiology for evaluation. (2) CHF (congestive heart failure) Current Visit: Yes Status: Acute Qualifiers: Heart failure type: unspecified Heart failure chronicity: acute on chronic Qualified Code(s): I50.9 - Heart failure, unspecified Plan to address problem: We will monitor daily weights, inputs and outputs will be closely monitored. Patient will be scheduled for echocardiogram. (3) Diabetes mellitus Current Visit: Yes Status: Acute Plan to address problem: Patient placed on sliding scale insulin. Will monitor Accu-Cheks closely. (4) CVA (5) severe combined metabolic encephalopathy with presumed hypoxic encephalopathy (7) DVT prophylaxis Current Visit: Yes Status: Acute Plan to address problem: Patient currently on anticoagulation. (5) DNR Current Visit: Yes Status: Acute Plan to address problem: Patient is full code. 08/10/2020 -Patient is admitted for the management of non-STEMI and CHF. Patient is on heparin drip, aspirin, IV Lasix. Monitor in and out. Cardiology is following the patient. Diabetes mellitus with hyperglycemia; blood glucose was above 400 and I started the patient on long-acting insulin, Humalog AC and sliding scale insulin, will follow hemoglobin A1c level. -Continue inpatient care 08/11/20 -Patient had echo showed EF of 10 to 15%, with diastolic dysfunction. Patient had echo in 2015 and had EF of 15 to 20%. Patient started on metoprolol, and lisinopril. Blood pressure is well controlled. Continue with IV Lasix. Cardiology is following and will do ischemic work-up on Friday. Patient's hemoglobin A1c is 15.1, has hyperglycemia, and started on Lantus and sliding scale insulin and AC Humalog. Blood pressure this morning was 64 and I discontinued the AC Humalog, monitor blood sugar and adjust insulin as needed. -Disposition continue inpatient care. -I have been notified with nursing staff that Ms Perez has altered mental status, I went and evaluated her and patient was altered. Patient has strong pulse, was on oxygen and saturation was ok. No fever. Blood sugar was checked and was 135 but earlier patient had hypoglycemia and was treated with dextrose and insulin discontinued put on D5w. I called code stroke and stat CT, head, CTA head & neck was done and was unrevealing. MRI was done and showed extensive acute infarction. Neurology was consulted and discussed with Dr Flores and she said continue with heparin drip, no other recommendations. she said SAL but patient had LV thrombus on TTE and there is no need to It. patient was evaluated by cardiology Echo showed EF 10-15%, LV thrombus and patient is on heparin drip and other appropriate CHF treatment. Patient was not following with physician and was not taking any medications and her a1c was 15.1. Patient was diagnosed with CHF with EF of 10-15% 4 years ago and didn't have any follow ups and she said sha has no insurance. I called and discussed with her Spouse Priya over the phone. She said patient doesn't want resucitation or intubation. she now DNR/DNI. Priya Riley @[phone]. Prognosis is very poor. 08/12/20 -Extensive acute infarction. Acute on chronic systolic CHF, left ventricular thrombus. Patient is on heparin drip. Cardiology is following. Neurology recommendations noted. Prognosis is poor. Will follow. Patient is DNR/DNI. If no improvement in her mental status I will put OG tube feeding for now. Management plan discussed with our spouse yesterday. 08/13/2020; extensive acute CVA, neurology consult appreciated. Acute on chronic systolic CHF, left ventricular apical thrombus. Continue with heparin drip. Cardiology is following the patient. Patient is DNR/DNI. Patient is on OG tube feeding. Prognosis is poor. Discussed with her spouse Priya Riley @[phone]. elevated liver enzymes; trending up. Ammonia level is going up despite lactulose. 08/14: Patient remains grossly unresponsive. I did discuss with patient's spouse Priya I did update her on all the findings so far which includes the CVA and her unresponsiveness she verbalized understanding. Also discussed advance care planning including consideration for hospice she would like to see her before making the decision 35 minutes spent. Setting communicated also to the case assistant. I also discussed with the car seat coverer per their recommendation no further input is beneficial from their standpoint. 08/15: Unfortunately remains unresponsive. spoke to Ms Powers, she will like to get information About Hospice and understands that her prognosis is poor. Hospice consult placed. Start Emperic abx. for noted low grade fever 08/16: No new change, still with arrythmia. Hospice ongoing, if approved will discharge today, no on statin due to the Elevated Transaminitis 08/17: Patient continues on tube feeds and heparin drip. Awaiting hospice placement. Will discuss with family about potentially discontinuing all this medication instituting palliative care. Overnight still on the monitor has some arrhythmias which cardiology is managing closely. Very poor prognosis. 08/18: Continue supportive care at this time. No new addition to management plan. 08/19: Continue supportive care, manage electrolytes, awaiting placement, still no response. Poor prognosis 08/20: Remains unresponsive. Awaiting placement 08/21: Patient was hypoglycemic yesterday. Will discontinue Lantus. Awaiting hospice placement. No meaningful recovery so far noted. Remains grossly unresp onsive 08/22. Labs reviewed. Hypoglycemia resolved. Awaiting hospice placement. Remains grossly nonresponsive 08/23. Patient seen and examined, remains grossly unresponsive. . Hospice placement as per family preservation caseworker Discussed with patient spouse (Priya) today. I discussed feeding options with her. Priya stated patient would not want to have PEG placement for tube feedings. She understands that patient only means of nutrition is via NG tube and if this is removed, she will not get nutrition. She will be going to hospice facility which do not take patients with NG tube. She agrees with removing NG tube prior to transfer. Awaiting placement to hospice facility. History Interval history: Patient seen and examined, remains grossly unresponsive. Hospice placement as per family preservation caseworker Discussed with patient spouse (Priya) today. I discussed feeding options with her. Priya stated patient would not want to have PEG placement for tube f elodia. She understands that patient only means of nutrition is via NG tube and if this is removed, she will not get nutrition. She will be going to hospice facility which do not take patients with NG tube. She agrees with removing NG tube prior to transfer. Hospitalist Physical - Physical exam Narrative exam: VITAL SIGNS: Reviewed. GENERAL: Awake HEAD: No signs of head trauma. EYES: Pupils are equal. Extraocular motions intact. MOUTH: Oropharynx is normal. NECK: No adenopathy, no JVD. CHEST: Chest with diminished breath sounds bilaterally. No wheezes, rales, or rhonchi. CARDIAC: normal S1 and S2, without murmurs, gallops, or rubs. ABDOMEN: Soft, non tender and non distended. No rebound or guarding, and no masses palpated. Bowel Sounds normal. MUSCULOSKELETAL: No edema NEUROLOGIC EXAM: Alert and oriented x3. No focal neurologic deficits SKIN: No obvious lesions - Constitutional Vitals: Temp Pulse Resp BP Pulse Ox 99.2 F 89 15 113/80 100 08/23/20 11:56 08/23/20 11:56 08/23/20 11:56 08/23/20 11:56 08/23/20 11:56 General appearance: Present: no acute distress HEART Score - HEART Score EKG: Non-specific Age: 45-65 Risk factors: > 3 risk factors or hx of atherosclerotic disease Troponin: Troponin T 0.056 ng/mL (0.00-0.029) H 08/10/20 07:39 Troponin: > 3x normal limit Results - Labs CBC & Chem 7: 08/22/20 08:21 08/16/20 05:44 Labs: Laboratory Last Values WBC 11.9 K/mm3 (4.5-11.0) H 08/16/20 05:44 RBC 4.56 M/mm3 (3.65-5.03) 08/16/20 05:44 Hgb 12.0 gm/dl (10.1-14.3) 08/22/20 08:21 Hct 39.2 % (30.3-42.9) D 08/22/20 08:21 MCV 77 fl (79-97) L 08/16/20 05:44 MCH 24 pg (28-32) L 08/16/20 05:44 MCHC 31 % (30-34) 08/16/20 05:44 RDW 19.3 % (13.2-15.2) H 08/16/20 05:44 Plt Count 262 K/mm3 (140-440) 08/22/20 08:21 Lymph % (Auto) 28.3 % (13.4-35.0) 08/11/20 05:15 [place] % (Auto) 10.8 % (0.0-7.3) H 08/11/20 05:15 Eos % (Auto) 0.4 % (0.0-4.3) 08/11/20 05:15 Baso % (Auto) 1.2 % (0.0-1.8) 08/11/20 05:15 Lymph # (Auto) 2.9 K/mm3 (1.2-5.4) 08/11/20 05:15 [place] # (Auto) 1.1 K/mm3 (0.0-0.8) H 08/11/20 05:15 Eos # (Auto) 0.0 K/mm3 (0.0-0.4) 08/11/20 05:15 Baso # (Auto) 0.1 K/mm3 (0.0-0.1) 08/11/20 05:15 Add Manual Diff Complete 08/14/20 04:42 Total Counted 100 08/14/20 04:42 Seg Neutrophils % Demographer 08/14/20 04:42 Seg Neuts % (Manual) 96.0 % (40.0-70.0) H 08/14/20 04:42 Lymphocytes % (Manual) 1.0 % (13.4-35.0) L 08/14/20 04:42 Monocytes % (Manual) 3.0 % (0.0-7.3) 08/14/20 04:42 Nucleated RBC % Not Reportable 08/14/20 04:42 Seg Neutrophils # 6.0 K/mm3 (1.8-7.7) 08/11/20 05:15 Seg Neutrophils # Man 15.7 K/mm3 (1.8-7.7) H 08/14/20 04:42 Band Neutrophils # 0.0 K/mm3 08/14/20 04:42 Lymphocytes # (Manual) 0.2 K/mm3 (1.2-5.4) L 08/14/20 04:42 Abs React Lymphs (Man) 0.0 K/mm3 08/14/20 04:42 Monocytes # (Manual) 0.5 K/mm3 (0.0-0.8) 08/14/20 04:42 Eosinophils # (Manual) 0.0 K/mm3 (0.0-0.4) 08/14/20 04:42 Basophils # (Manual) 0.0 K/mm3 (0.0-0.1) 08/14/20 04:42 Metamyelocytes # 0.0 K/mm3 08/14/20 04:42 Myelocytes # 0.0 K/mm3 08/14/20 04:42 Promyelocytes # 0.0 K/mm3 08/14/20 04:42 Blast Cells # 0.0 K/mm3 08/14/20 04:42 WBC Morphology Not Reportable 08/14/20 04:42 Hypersegmented Neuts Rare 08/14/20 04:42 Hyposegmented Neuts Not Reportable 08/14/20 04:42 Hypogranular Neuts Not Reportable 08/14/20 04:42 Smudge Cells Not Reportable 08/14/20 04:42 Toxic Granulation Not Reportable 08/14/20 04:42 Toxic Vacuolation Not Reportable 08/14/20 04:42 Dohle Bodies Not Reportable 08/14/20 04:42 Pelger-Huet Anomaly Not Reportable 08/14/20 04:42 Fadumo Rods Not Reportable 08/14/20 04:42 Platelet Estimate Cons 08/14/20 04:42 Clumped Platelets Not Reportable 08/14/20 04:42 Plt Clumps, EDTA Not Reportable 08/14/20 04:42 Large Platelets Not Reportable 08/14/20 04:42 Giant Platelets Not Reportable 08/14/20 04:42 Platelet Satelliting Not Reportable 08/14/20 04:42 Plt Morphology Comment Not Reportable 08/14/20 04:42 RBC Morphology Not Reportable 08/14/20 04:42 Dimorphic RBCs Not Reportable 08/14/20 04:42 Polychromasia Not Reportable 08/14/20 04:42 Hypochromasia 1+ 08/14/20 04:42 Poikilocytosis Not Reportable 08/14/20 04:42 Anisocytosis 1+ 08/14/20 04:42 Microcytosis Not Reportable 08/14/20 04:42 Macrocytosis Not Reportable 08/14/20 04:42 Spherocytes Not Reportable 08/14/20 04:42 Pappenheimer Bodies Not Reportable 08/14/20 04:42 Sickle Cells Not Reportable 08/14/20 04:42 Target Cells Not Reportable 08/14/20 04:42 Tear Drop Cells Not Reportable 08/14/20 04:42 Ovalocytes Not Reportable 08/14/20 04:42 Helmet Cells Not Reportable 08/14/20 04:42 [place] Bodies Not Reportable 08/14/20 04:42 [place] Rings Not Reportable 08/14/20 04:42 [place] Cells Not Reportable 08/14/20 04:42 Bite Cells Not Reportable 08/14/20 04:42 Crenated Cell Not Reportable 08/14/20 04:42 Elliptocytes Not Reportable 08/14/20 04:42 Acanthocytes (Spur) Not Reportable 08/14/20 04:42 Rouleaux Not Reportable 08/14/20 04:42 Hemoglobin C Crystals Not Reportable 08/14/20 04:42 Schistocytes Not Reportable 08/14/20 04:42 Malaria parasites Not Reportable 08/14/20 04:42 Mauro Bodies Not Reportable 08/14/20 04:42 Hem Pathologist Commnt No 08/14/20 04:42 PT 17.7 Sec. (12.2-14.9) H 08/14/20 09:02 INR 1.46 (0.87-1.13) H 08/14/20 09:02 APTT 88.7 Sec. (24.2-36.6) H* 08/14/20 09:02 Heparin Anti-Xa Level < 0.10 U.I./ml (0.3-0.7) L 08/19/20 06:56 Sodium 137 mmol/L (137-145) 08/16/20 05:44 Potassium 3.6 mmol/L (3.6-5.0) 08/16/20 05:44 Chloride 100.8 mmol/L (98-107) 08/16/20 05:44 Carbon Dioxide 30 mmol/L (22-30) 08/16/20 05:44 Anion Gap 10 mmol/L 08/16/20 05:44 BUN 36 mg/dL (7-17) H 08/16/20 05:44 Creatinine 0.6 mg/dL (0.6-1.2) 08/16/20 05:44 Estimated GFR > 60 ml/min 08/16/20 05:44 BUN/Creatinine Ratio 60 % 08/16/20 05:44 Glucose 139 mg/dL (65-100) H 08/16/20 05:44 POC Glucose 315 mg/dL (70-105) H 08/23/20 06:11 Hemoglobin A1c 15.1 % (4-6) H 08/10/20 11:38 Calcium 7.4 mg/dL (8.4-10.2) L 08/16/20 05:44 Magnesium 1.60 mg/dL (1.7-2.3) L 08/11/20 18:08 Total Bilirubin 1.50 mg/dL (0.1-1.2) H 08/16/20 05:44 Direct Bilirubin 1.5 mg/dL (0-0.2) H 08/14/20 04:42 Indirect Bilirubin 1.0 mg/dL 08/14/20 04:42 AST 267 units/L (5-40) H 08/16/20 05:44 ALT 455 units/L (7-56) H 08/16/20 05:44 Alkaline Phosphatase 535 units/L (35-129) H 08/16/20 05:44 Ammonia 48.0 umol/L (25-60) 08/21/20 09:37 Troponin T 0.056 ng/mL (0.00-0.029) H 08/10/20 07:39 NT-Pro-B Natriuret Pep 1579 pg/mL (0-450) H 08/09/20 17:28 Total Protein 5.0 g/dL (6.3-8.2) L 08/16/20 05:44 Albumin 2.3 g/dL (3.9-5) L 08/16/20 05:44 Albumin/Globulin Ratio 0.9 % 08/16/20 05:44 Triglycerides 79 mg/dL (2-149) 08/09/20 17:28 Cholesterol 189 mg/dL (50-199) 08/09/20 17:28 LDL Cholesterol Direct 104 mg/dL (50-130) 08/09/20 17:28 HDL Cholesterol 91 mg/dL (40-59) H 08/09/20 17:28 Cholesterol/HDL Ratio 2.07 % 08/09/20 17:28 Lipase 49 units/L (13-60) 08/09/20 17:28 Urine Color Yellow (Yellow) 08/09/20 Unknown Urine Turbidity Clear (Clear) 08/09/20 Unknown Urine pH 6.0 (5.0-7.0) 08/09/20 Unknown Ur Specific [place] 1.040 (1.003-1.030) H 08/09/20 Unknown Urine Protein 100 mg/dl mg/dL (Negative) 08/09/20 Unknown Urine Glucose (UA) >=500 mg/dL (Negative) 08/09/20 Unknown Urine Ketones 20 mg/dL (Negative) 08/09/20 Unknown Urine Blood Neg (Negative) 08/09/20 Unknown Urine Nitrite Neg (Negative) 08/09/20 Unknown Urine Bilirubin Neg (Negative) 08/09/20 Unknown Urine Urobilinogen 2.0 mg/dL (<2.0) 08/09/20 Unknown Ur Leukocyte Esterase Neg (Negative) 08/09/20 Unknown Urine WBC (Auto) 5.0 /HPF (0.0-6.0) 08/09/20 Unknown Urine RBC (Auto) 8.0 /HPF (0.0-6.0) 08/09/20 Unknown U Epithel Cells (Auto) 4.0 /HPF (0-13.0) 08/09/20 Unknown Coronavirus (PCR) Negative (Negative) 08/16/20 10:00 Hepatitis A IgM Ab Non-reactive (NonReactive) 08/12/20 11:56 Hep Bs Antigen Non-reactive (Negative) 08/12/20 11:56 Hep B Core IgM Ab Non-reactive (NonReactive) 08/12/20 11:56 Hepatitis C Antibody Non-reactive (NonReactive) 08/12/20 11:56 [place]/IV: Voiding Method External Female Catheter Active Medications - Current Medications Current Medications: Generic Name Dose Route Start Last Admin Trade Name Freq PRN Reason Stop Dose Admin Acetaminophen 650 mg 08/13/20 20:22 08/16/20 23:50 Acetaminophen 325 Mg/10.15 Ml Oral Liqd Unit Dose FEEDTUBE 650 mg Q6H PRN Administration Pain, Mild (1-3) Lipase/Protease/Amylase 1 each 08/12/20 12:36 Lipase 10,500/Protease 25,000/Amylase 43,750 (Units) Dr Ospina FEEDTUBE PRN PRN For Clogged Feeding Tube Aspirin 81 mg 08/11/20 10:00 08/23/20 10:38 Aspirin 81 Mg Tab Chew PO 81 mg QDAY FESTUS Administration Dextrose 0 ml 08/10/20 00:43 08/20/20 23:23 Dextrose 50% In Water (25gm) 50 Ml Syringe IV 20 ml Q30MIN PRN Administration Hypoglycemia Protocol Furosemide 40 mg 08/15/20 10:00 08/23/20 10:38 Furosemide 40 Mg/4 Ml Inj IV 40 mg QDAY FESTUS Administration Insulin Human Lispro 0 unit 08/12/20 00:00 08/23/20 06:20 Insulin Lispro 100 Unit/Ml SUB-Q 6 unit Q6HR FESTUS Administration Protocol Lisinopril 5 mg 08/11/20 10:00 08/23/20 10:38 Lisinopril 5 Mg Tab PO 5 mg QDAY FESTUS Administration Magnesium Hydroxide 30 ml 08/10/20 00:43 Magnesium Hydroxide (Mom) Oral Liqd Udc PO Q4H PRN Constipation Metoprolol Tartrate 50 mg 08/11/20 22:00 08/23/20 10:38 Metoprolol Tartrate 50 Mg Tab PO 50 mg BID FESTUS Administration Nitroglycerin 0.4 mg 08/10/20 00:43 Nitroglycerin 0.4 Mg Tab Subl SL Q5M PRN Chest Pain Ondansetron HCl 4 mg 08/10/20 00:43 08/10/20 23:32 Ondansetron 4 Mg/2 Ml Inj IV 4 mg Q8H PRN Administration Nausea And Vomiting Simple Syrup 15 ml 08/12/20 12:36 Simple Syrup 15 Ml FEEDTUBE PRN PRN Hypoglycemia Simple Syrup 30 ml 08/12/20 12:36 Simple Syrup 15 Ml FEEDTUBE PRN PRN Hypoglycemia Sodium Bicarbonate 325 mg 08/12/20 12:36 Sodium Bicarbonate 325 Mg Tab FEEDTUBE PRN PRN For Clogged Feeding Tube Sodium Chloride 10 ml 08/10/20 10:00 08/23/20 10:38 Sodium Chloride 0.9% 10 Ml Flush Syringe IV 10 ml BID FESTUS Administration Sodium Chloride 10 ml 08/10/20 00:43 08/18/20 06:24 Sodium Chloride 0.9% 10 Ml Flush Syringe IV 10 ml PRN PRN Administration LINE FLUSH Nutrition/Malnutrition Assess - Dietary Evaluation Nutrition/Malnutrition Findings: Nutrition Notes Start: 08/10/20 11:18 Freq: Status: Active Protocol: Document 08/22/20 12:04 CHARLES (Rec: 08/22/20 12:07 CHARLES [id number]) Nutrition Notes Initial or Follow up Reassessment Current Diagnosis Diabetes,Heart Failure Other Pertinent Diagnosis NSTEMI, extensive acute infarction Current Diet Glucerna 1.2 at 40 ml/hr Labs/Tests POC BG 240 Pertinent Medications Reviewed Height 5 ft 5 in Weight 50.7 kg [place] Body Weight (kg) 56.81 BMI 18.6 Weight Status Appropriate Subjective/Other Information FU for TF tolerance. Per RN, pt tolerating TF well. TF was not increased. RN increased to 50 ml/hr at time of visit. Percent of energy/protein needs met: 69%/87% Burn Absent Trauma Absent GI Symptoms None Current % PO Negligible Minimum of two criteria Yes Muscle Mass Moderate Depletion (severe) Fluid Accumulation Mild (non-severe) #2 Nutrition Diagnosis Malnutrition Diagnosis Progress(for reassessment Continues documentation) #1 Nutrition Diagnosis Inadequate oral intake Diagnosis Progress(for reassessment Continues documentation) Is patient on ventilator? No Is Patient Ambulatory and/or Out of Bed No REE-([facility]-confined to bed) 1363.548 Kcal/Kg value to use for calculation 33 Approximate Energy Requirements Using 1673 kcal/Kg Calculation Used for Recommendations [facility] Additional Notes Pro needs: 67-85 (1.2-1.5 g/kg ) Fluid needs 1ml/kcal Nutrition Intervention Change Diet Order: Continue Nutrition Support: Glucerna 1.2 at 60 ml/hr with 100 ml water flush q4h. Kcal 1,728 Protein (gm) 86 Carbohydrates (gm) 165 Fluid (mL) 1,160 Goal #1 TF tolerance Goal #2 TF at goal rate to meet at least 75% energy and pro needs Anticipated Discharge Needs: Unable to determine at this time Follow-Up By: 08/24/20 Additional Comments FU for TF tolerance
--- NOTE | 2020-08-23 15:38 | Discharge Summary ---
Providers - Providers Date of Admission: 08/09/20 22:02 Date of discharge: 08/23/20 Attending physician: JENNY PACE 08/10/20 Consult to Cardiac Rehabilitation [CONS] Routine Reason For Exam: Phase I 08/10/20 00:43 Consult to Physician [CONS] Routine Comment: Consulting Provider: MAKSIM EDWARD Physician Instructions: Reason For Exam: NSTEMI,CHF 08/10/20 00:44 Consult to Dietitian/Nutrition [CONS] Routine Physician Instructions: Reason For Exam: Reason for Consult: Diet education 08/12/20 10:20 Consult to Dietitian/Nutrition [CONS] Routine Physician Instructions: Reason For Exam: Reason for Consult: Write/Manage Tube Feeding Primary care physician: RADIOSONDE SPECIALIST Hospitalization Condition: Stable Hospital course: 50-year-old female with known history of hypertension, diabetes mellitus and CHF presenting to the emergency room today complaining of chest pain and shortness of breath. Symptoms onset started sometime this afternoon and seems to be getting worse. Chest pain is nonradiating. Symptoms are better with resting gets worse upon exertion. She denies any cough, no fever or chills, no nausea vomiting, no abdominal pain, no diarrhea. Patient denies any recent travel and no sick contacts. Denies any contact with anyone with COVID-19. Work-up in the emergency room today, chest x-ray shows pleural effusion. Troponin slightly elevated. Patient is being admitted for NSTEMI and CHF. Hosital course 08/10/2020 -Patient is admitted for the management of non-STEMI and CHF. Patient is on heparin drip, aspirin, IV Lasix. Monitor in and out. Cardiology is following the patient. Diabetes mellitus with hyperglycemia; blood glucose was above 400 and I started the patient on long-acting insulin, Humalog AC and sliding scale insulin, will follow hemoglobin A1c level. -Continue inpatient care 08/11/20 -Patient had echo showed EF of 10 to 15%, with diastolic dysfunction. Patient had echo in 2015 and had EF of 15 to 20%. Patient started on metoprolol, and lisinopril. Blood pressure is well controlled. Continue with IV Lasix. Cardiology is following and will do ischemic work-up on Friday. Patient's hemoglobin A1c is 15.1, has hyperglycemia, and started on Lantus and sliding scale insulin and AC Humalog. Blood pressure this morning was 64 and I discontinued the AC Humalog, monitor blood sugar and adjust insulin as needed. -Disposition continue inpatient care. -I have been notified with nursing staff that Ms Perez has altered mental status, I went and evaluated her and patient was altered. Patient has strong pulse, was on oxygen and saturation was ok. No fever. Blood sugar was checked and was 135 but earlier patient had hypoglycemia and was treated with dextrose and insulin discontinued put on D5w. I called code stroke and stat CT, head, CTA head & neck was done and was unrevealing. MRI was done and showed extensive acute infarc tion. Neurology was consulted and discussed with Dr Flores and she said continue with heparin drip, no other recommendations. she said SAL but patient had LV thrombus on TTE and there is no need to It. patient was evaluated by cardiology Echo showed EF 10-15%, LV thrombus and patient is on heparin drip and other appropriate CHF treatment. Patient was not following with physician and was not taking any medications and her a1c was 15.1. Patient was diagnosed with CHF with EF of 10-15% 4 years ago and didn't have any follow ups and she said sha has no insurance. I called and discussed with her Spouse Priya over the phone. She said patient doesn't want resucitation or intubation. she now DNR/DNI. Priya Riley @[phone]. Prognosis is very poor. 08/12/20 -Extensive acute infarction. Acute on chronic systolic CHF, left ventricular thrombus. Patient is on heparin drip. Cardiology is following. Neurology recommendations noted. Prognosis is poor. Will follow. Patient is DNR/DNI. If no improvement in her mental status I will put OG tube feeding for now. Management plan discussed with our spouse yesterday. 08/13/2020; extensive acute CVA, neurology consult appreciated. Acute on chronic systolic CHF, left ventricular apical thrombus. Continue with heparin drip. Cardiology is following the patient. Patient is DNR/DNI. Patient is on OG tube feeding. Prognosis is poor. Discussed with her spouse Priya Riley @[phone]. elevated liver enzymes; trending up. Ammonia level is going up despite lactulose. 08/14: Patient remains grossly unresponsive. I did discuss with patient's spouse Priya I did update her on all the findings so far which includes the CVA and her unresponsiveness she verbalized understanding. Also discussed advance care planning including consideration for hospice she would like to see her before making the decision 35 minutes spent. Setting communicated also to the senior case manager. I also discussed with the cigar tobacco rehandler per their recommendation no further input is beneficial from their standpoint. 08/15: Unfortunately remains unresponsive. spoke to Ms Powers, she will like to get information About Hospice and understands that her prognosis is poor. Hospice consult placed. Start Emperic abx. for noted low grade fever 08/16: No new change, still with arrythmia. Hospice ongoing, if approved will discharge today, no on statin due to the Elevated Transaminitis 08/17: Patient continues on tube feeds and heparin drip. Awaiting hospice placement. Will discuss with family about potentially discontinuing all this medication instituting palliative care. Overnight still on the monitor has some arrhythmias which cardiology is managing closely. Very poor prognosis. 08/18: Continue supportive care at this time. No new addition to management plan. 08/19: Continue supportive care, manage electrolytes, awaiting placement, still no response. Poor prognosis 08/20: Remains unresponsive. Awaiting placement 08/21: Patient was hypoglycemic yesterday. Will discontinue Lantus. Awaiting hospice placement. No meaningful recovery so far noted. Remains grossly unresponsive 08/22. Labs reviewed. Hypoglycemia resolved. Awaiting hospice placement. Remains grossly nonresponsive 08/23. Patient seen and examined, remains grossly unresponsive. . Hospice placement as per ed case manager Discussed with patient spouse (Priya) today. I discussed feeding options with her. Priya stated patient would not want to have PEG placement for tube feedings. She understands that patient only means of nutrition is via NG tube and if this is removed, she will not get nutrition. She will be going to hospice facility which do not take patients with NG tube. She agrees with removing NG tube prior to transfer. Awaiting placement to hospice facility. 3Pm. Patient has been accepted to a hospice facility as per ed case manager. Disposition: [id number] ([facility]) Final Discharge Diagnosis (Prints w/discharge instructions): CVA. Systolic heart heart failure - Discharge Diagnoses (1) Dilated cardiomyopathy Status: Acute (2) NSTEMI (non-ST elevated myocardial infarction) Status: Acute (3) HFrEF (heart failure with reduced ejection fraction) Status: Chronic (4) Left ventricular apical thrombus Status: Chronic Core Measure Documentation - Palliative Care Palliative Care/ Comfort Measures: Hospice Care Exam - Physical Exam Narrative exam: VITAL SIGNS: Reviewed. GENERAL: Awake HEAD: No signs of head trauma. EYES: Pupils are equal. Extraocular motions intact. MOUTH: Oropharynx is normal. NECK: No adenopathy, no JVD. CHEST: Chest with diminished breath sounds bilaterally. No wheezes, rales, or rhonchi. CARDIAC: normal S1 and S2, without murmurs, gallops, or rubs. ABDOMEN: Soft, non tender and non distended. No rebound or guarding, and no masses palpated. Bowel Sounds normal. MUSCULOSKELETAL: No edema NEUROLOGIC EXAM: Alert and oriented x3. No focal neurologic deficits SKIN: No obvious lesions - Constitutional Vitals: Temp Pulse Resp BP Pulse Ox 99.2 F 89 15 113/80 100 08/23/20 11:56 08/23/20 11:56 08/23/20 11:56 08/23/20 11:56 08/23/20 11:56 Plan Follow up with: PRIMARY MD STEVO [Primary Care Provider] - 3-5 Days Prescriptions: Aspirin [Adult Aspirin] 81 mg PO DAILY #30 tablet.
[2020-08-23 16:09] VITALS: BP 99/67
== END 2020-08-23 23:16 | disposition hospice, inpatient (51) | DRG 280 ==
LOC: ED 17:11 → IMCU 22:02 → 4A 08-10 20:20
PROVIDERS: ADMIT Internal Medicine Geriatric Medicine; ATTEND Internal Medicine
DX: I21.4 Non-ST elevation (NSTEMI) myocardial infarction (principal); I50.23 Acute on chronic systolic (congestive) heart failure; G93.41 Metabolic encephalopathy; I63.9 Cerebral infarction, unspecified; I42.0 Dilated cardiomyopathy; E87.1 Hypo-osmolality and hyponatremia; Z66 Do not resuscitate; Z20.822 Contact with and (suspected) exposure to COVID-19; I11.0 Hypertensive heart disease with heart failure; E11.9 Type 2 diabetes mellitus without complications; R00.0 Tachycardia, unspecified; R74.01 Elevation of levels of liver transaminase levels; Z82.49 Family history of ischemic heart disease and other diseases of the circulatory system; Z91.14 Patient's other noncompliance with medication regimen; Z79.82 Long term (current) use of aspirin; Z79.899 Other long term (current) drug therapy
CPT/HCPCS: 36415; 70450; 70496; 70498; 70551; 71045; 71046; 74018; 76705; 80048; 80053; 80061; 80074; 80076; 81001; 82140; 82947; 82962; 83036; 83690; 83735; 83880; 84484; 85007; 85014; 85018; 85025; 85027; 85049; 85520; 85610; 85730; 93005; 93306; 94760; 96374; 96375; G0378; A9270-GY; J0692; J1100; J1200; J1644; J1815; J1940; J2270; J2405; J3480; J7070; Q9967; U0003